=== PATIENT | female | born 1945 | race Caucasian/White ===

== ENCOUNTER 2016-12-01 21:38 | Emergency (ER) | payer MEDICARE ==
[~2016-12-01] VITALS: Ht 175.3 cm; Wt 82.1 kg
[~2016-12-01 21:38] MED LIST: ASPI81TA82 PO; CITA20TA4 PO; MELO7.5 PO; VITA20002 PO; WELL150T PO; XANA0.5T PO; ZOCO40TA PO
[2016-12-01 22:00] VITALS: BP 111/77; PULSE 76; RESP 18; TEMP 98.6; O2SAT 93
[2016-12-01] MEDS ORDERED: BUPR150T3 PO (22:11)
[2016-12-01] MEDS ORDERED: ASPI81CH3 CHEW (22:11)
[2016-12-01] MEDS ORDERED: ALPR1TAB3 PO (22:11)
[2016-12-01] MEDS ORDERED: MELO7.5T4 PO (22:11)
[2016-12-01] MEDS ORDERED: CITA40TA4 PO (22:11)
[2016-12-01] MEDS ORDERED: CHOL1TAB29 PO (22:11)
[2016-12-01] MEDS ORDERED: SIMV40TA PO (22:11)
[2016-12-01] MEDS ORDERED: UNIS25TA2 PO (22:11)
--- NOTE | 2016-12-01 22:52 | PD ---
HPI . Chest cold Chief Complaint: Cold / Flu Symptoms Time Seen by Provider: 22:42 Travel History International Travel<30 days: No Contact w/Intl Traveler<30days: No Traveled to known affect area: No History of Present Illness HPI Patient presents with chest congestion and cough. Onset yesterday. She has had 1 dose of [place] plus cold medicine for her symptoms. Denies fever. She has yellow sputum. PFSH Past Medical History Asthma: No Anxiety: Yes Depression: Yes Cancer: No Cardiovascular Problems: Yes (LEG VEINS STRIPPED YEARS AGO) High Cholesterol: Yes COPD: No Cerebrovascular Accident: Yes (TIA 2014) Diabetes: No Gastrointestinal Disorders: No Respiratory: No Triglycerides - High: Yes Tetanus Vaccination: Unknown Influenza Vaccination: Yes ?: Not Menopausal: Yes Past Surgical History Tonsillectomy: Yes Other Surgery: Yes (Leg veins stripped) Social History Alcohol Use: No Tobacco Use: No Substance Use: No Allergies-Medications (Allergen,Severity, Reaction): Coded Allergies: Penicillin (Verified Allergy, Severe, Swelling, hives, 12/01/16) Reported Meds & Prescriptions Reported Meds & Active Scripts Active Tussionex Pennkinetic Ext 12 HR Liq (Hydrocodone-Chlorpheniramine 12 HR Liq) 10- 8 Mg/5 Ml Susp 5 Ml PO Q12H PRN Guaifenesin ER 12 HR (Guaifenesin) 1,200 Mg Yaniv 1,200 Mg PO BID PRN Prednisone (48) 10 mg tab Dose Pack (Prednisone) 10 Mg Dspk 10 Mg PO DIRECTED Reported Aspirin 81 Low Dose (Aspirin) 81 Mg Chew 81 Mg CHEW DAILY D3 2000 (Cholecalciferol) 2,000 Unit Tab 1 Tab PO DAILY Unisom (Doxylamine Succinate (Sleep)) 25 Mg Tab 25 Mg PO HS PRN Citalopram (Citalopram Hydrobromide) 40 Mg Tab 40 Mg PO DAILY Bupropion HCl ER 24 HR (Bupropion HCl) 150 Mg Tab 150 Mg PO DAILY Alprazolam 1 Mg Tab 1 Mg PO BID Simvastatin 40 Mg Tab 40 Mg PO HS Meloxicam 7.5 Mg Tab 7.5 Mg PO DAILY Review of Systems Except as stated in HPI: all other systems reviewed are Neg General / Constitutional: No: Fever, Chills Cardiovascular: Positive: Chest Pain or Discomfort Respiratory: Positive: Cough, Shortness of Breath Physical Exam Narrative GENERAL: Older woman who does not appear to be in any acute distress. SKIN: Warm and dry. HEAD: Atraumatic. Normocephalic. EYES: Pupils equal and round. ENT: No nasal bleeding or discharge. Mucous membranes pink and moist. NECK: Trachea midline. Neck is supple. No cervical lymphadenopathy. CARDIOVASCULAR: Regular rate and rhythm. Heart sounds are normal. RESPIRATORY: No accessory muscle use. Lungs are clear posteriorly. She has a coarse expiratory sound heard anteriorly. GASTROINTESTINAL: Abdomen soft, non-tender, nondistended. MUSCULOSKELETAL: No obvious deformities. No edema. NEUROLOGICAL: Awake and alert. No obvious cranial nerve deficits. Motor grossly within normal limits. Normal speech. PSYCHIATRIC: Appropriate mood and affect; insight and judgment normal. Data Data Last Documented VS Vital Signs Date Time Temp Pulse Resp B/P Pulse Ox O2 Delivery O2 Flow Rate FiO2 12/01/16 23:07 68 18 96 Room Air 12/01/16 22:00 98.6 111/77 Orders Chest, Pa & Lat (12/01/16 22:46) Guaifen-Dm 200-20 Mg/10 Ml Liq (Robituss (12/01/16 23:00) MDM Medical Decision Making Medical Screen Exam Complete: Yes Emergency Medical Condition: Yes Medical Record Reviewed: Yes (medical history significant for hypertension, hyperlipidemia, bradycardia and anxiety.) Interpretation(s) EKG shows a normal sinus rhythm with no acute ischemic change. EKG is unchanged from previous. Differential Diagnosis Differential diagnosis includes but is not limited to viral respiratory illness , bronchitis, pneumonia, allergies, CHF, asthma/COPD. Narrative Course Patient presents for evaluation and treatment of cough and chest congestion. Chest x-ray to my interpretation is negative for infiltrate. Last Impressions Chest X-Ray 12/01/16 7068 Signed Impressions: Service Date/Time: Thursday, December 01, 2016 23:16 - CONCLUSION: No evidence of acute cardiopulmonary disease. Hyperexpanded but clear lungs. Josué Aden MD Diagnosis Primary Impression: Chest cold Med/Other Pt SpecificInfo: Prescription(s) given Scripts Hydrocodone-Chlorpheniramine 12 HR Liq (Tussionex Pennkinetic Ext 12 HR Liq)10- 8 Mg/5 Ml Susp5 Ml PO Q12H PRN (cough) #60 ML Ref 0 Prov:Marilia Carson MD 12/01/16 Guaifenesin ER 12 HR 1,200 Mg Taber1,200 Mg PO BID PRN (chest congestion) #30 TAB Ref 0 Prov:Marilia Carson MD 12/01/16 Prednisone (48) 10 mg tab Dose Pack 10 Mg Dspk10 Mg PO DIRECTED #1 DSPK Ref 0 Prov:Marilia Carson MD 12/01/16 Disposition: 01 DISCHARGE HOME Condition: Stable Marilia Carson MD Dec 01, 2016 22:52
[2016-12-01] MEDS ORDERED: guaiFENesin/DEXTROMETHORPHAN 200 MG/20 MG/10 ML CUP PO ONE (23:00)
[2016-12-01 23:07] VITALS: PULSE 68; RESP 18; O2SAT 96
[2016-12-01] MEDS ORDERED: GUAI10TA PO (23:32)
[2016-12-01] MEDS ORDERED: PRED10PA2 PO (23:32)
[2016-12-01] MEDS ORDERED: TUSSSUS2 PO (23:32)
--- NOTE | 2016-12-01 23:40 | RADHPO ---
EXAM DATE/TIME: 12/01/2016 23:16 [facility] COMPARISON: CHEST SINGLE AP, June 05, 2015, 16:12. INDICATIONS : Cough. MEDICAL HISTORY : Hypertension. Hypercholesterolemia. Myocardial infarction. TIA, Hyperlipidemia SURGICAL HISTORY : Tonsillectomy. ENCOUNTER: Initial ACUITY: 1 day PAIN SCORE: 0/10 LOCATION: Bilateral chest FINDINGS: No infiltrate, effusion or pneumothorax demonstrated. Lungs are hyperexpanded. Heart size upper limit s of normal. Thoracic aorta is tortuous. Mild S-shaped thoracolumbar scoliosis. There is multifocal degenerative disease with exaggeration of the kyphosis of the thoracic spine. CONCLUSION: No evidence of acute cardiopulmonary disease. Hyperexpanded but clear lungs. Josué Aden MD on December 01, 2016 at 23:37 Board Certified Radiologist. This report was verified electronically.
[2016-12-02] MEDS ORDERED: predniSONE 20 MG TAB PO ONE
--- NOTE | 2016-12-03 10:27 | EKG ---
Date Performed: 12/01/2016 Time Performed: 22:10:22 PTAGE: 71 years EKG: Sinus rhythm Left axis deviation Inferior infarct - age undetermined Abnormal ECG Compared to prior tracing no si gnificant change PREVIOUS TRACING 06/05/2015 17.15 DOCTOR: Bharat Curiel Interpretating Date/Time 12/03/2016 10:25:03
== END 2016-12-02 00:13 | disposition home or self-care (01) ==
LOC: PHEFT 21:38 → PHED 12-02 00:13
DX: J40 Bronchitis, not specified as acute or chronic (principal); R94.31 Abnormal electrocardiogram [ECG] [EKG]; E78.5 Hyperlipidemia, unspecified; Z86.59 Personal history of other mental and behavioral disorders; Z86.79 Personal history of other diseases of the circulatory system; Z86.73 Personal history of transient ischemic attack (TIA), and cerebral infarction without residual deficits
CPT/HCPCS: 71020; 93005; 99283; J7512

== ENCOUNTER 2017-03-24 11:19 | Emergency (ER) | payer MEDICARE ==
[~2017-03-24] VITALS: Ht 170.2 cm; Wt 77.0 kg
[~2017-03-24 11:19] MED LIST changes: +ALPR1TAB3 PO; +ASPI81CH3 CHEW; -ASPI81TA82 PO; +BUPR150T3 PO; +CHOL1TAB29 PO; -CITA20TA4 PO; +CITA40TA4 PO; +GUAI10TA PO; -MELO7.5 PO; +MELO7.5T4 PO; +PRED10PA2 PO; +SIMV40TA PO; +TUSSSUS2 PO; +UNIS25TA2 PO; -VITA20002 PO; -WELL150T PO; -XANA0.5T PO; -ZOCO40TA PO
[2017-03-24 11:22] VITALS: BP 133/66; PULSE 56; RESP 16; TEMP 97.5; O2SAT 99
--- NOTE | 2017-03-24 11:44 | PD ---
HPI Chief Complaint: Dizziness Time Seen by Provider: 11:35 Travel History International Travel<30 days: No Contact w/Intl Traveler<30days: No Traveled to known affect area: No History of Present Illness HPI PATIENT STATES DIZZINESS ONSET TODAY, PT HAS BASELINE DEMENTIA DIAGNOSED AND IS FORGETFUL, BUT DENIES ANY OTHER COMPLAINTS AT THIS TIME (IN PARTICULAR ACUÑA/ PHOTOPHOBIA/CHEST PAIN/ABD PAIN/ N/V/D) PFSH Past Medical History Hx Anticoagulant Therapy: No Asthma: No Anxiety: Yes Depression: Yes Cancer: No Cardiovascular Problems: Yes (LEG VEINS STRIPPED YEARS AGO) High Cholesterol: Yes COPD: No Cerebrovascular Accident: Yes (TIA 2014) Diabetes: No Gastrointestinal Disorders: No Respiratory: No Triglycerides - High: Yes Menopausal: Yes Past Surgical History Tonsillectomy: Yes Other Surgery: Yes (Leg veins stripped) Social History Alcohol Use: No Tobacco Use: No Substance Use: No Allergies-Medications (Allergen,Severity, Reaction): Coded Allergies: Penicillin (Verified Allergy, Severe, Swelling, hives, 03/24/17) Reported Meds & Prescriptions Reported Meds & Active Scripts Active Reported D3 Maximum Strength (Cholecalciferol) 5,000 Unit Cap 2,000 Units PO DAILY Aspirin EC (Aspirin) 325 Mg Tabdr 325 Mg PO DAILY Donepezil 5 Mg Tab 5 Mg PO HS Citalopram (Citalopram Hydrobromide) 40 Mg Tab 40 Mg PO DAILY Bupropion HCl ER 24 HR (Bupropion HCl) 150 Mg Tab 150 Mg PO DAILY Alprazolam 1 Mg Tab 1 Mg PO BID Simvastatin 40 Mg Tab 40 Mg PO HS Meloxicam 7.5 Mg Tab 7.5 Mg PO DAILY Review of Systems Except as stated in HPI: all other systems reviewed are Neg HENT: Positive: Lightheadedness Physical Exam Narrative GENERAL: SKIN: Warm and dry. HEAD: Atraumatic. Normocephalic. EYES: Pupils equal and round. No scleral icterus. No injection or drainage. LATERAL, FATIGUABLE NYSTAGMUS NOTED...NONROTARY ENT: No nasal bleeding or discharge. Mucous membranes pink and moist....BILATERAL CERUMEN IMPACTION NOTED NECK: Trachea midline. No JVD. CARDIOVASCULAR: Regular rate and rhythm. RESPIRATORY: No accessory muscle use. Clear to auscultation. Breath sounds equal bilaterally. GASTROINTESTINAL: Abdomen soft, non-tender, nondistended. Hepatic and splenic margins not palpable. MUSCULOSKELETAL: Extremities without clubbing, cyanosis, or edema. No obvious deformities. NEUROLOGICAL: Awake and alert. No obvious cranial nerve deficits. Motor grossly within normal limits. Five out of 5 muscle strength in the arms and legs. Normal speech. PSYCHIATRIC: Appropriate mood and affect; insight and judgment normal. Data Data Last Documented VS Vital Signs Date Time Temp Pulse Resp B/P Pulse Ox O2 Delivery O2 Flow Rate FiO2 03/24/17 12:40 51 16 138/76 99 Room Air 03/24/17 11:22 97.5 Orders Electrocardiogram (03/24/17 11:47) Complete Blood Count With Diff (03/24/17 11:47) Comprehensive Metabolic Panel (03/24/17 11:47) Ckmb (Isoenzyme) Profile (03/24/17 11:47) Troponin I (03/24/17 11:47) B-Type Natriuretic Peptide (03/24/17 11:47) Lipase (03/24/17 11:47) Ua Includes Microscopic (03/24/17 11:47) Influenzae A/B Antigen (03/24/17 11:47) Chest, Single Ap (03/24/17 11:47) Ct Brain W/O Iv Contrast(Rout) (03/24/17 11:47) Ear Irrigation (03/24/17 11:55) Meclizine (Antivert) (03/24/17 12:30) Labs Laboratory Tests Test 03/24/17 11:55 White Blood Count 6.2 TH/MM3 Red Blood Count 3.95 MIL/MM3 Hemoglobin 12.2 GM/DL Hematocrit 36.4 % Mean Corpuscular Volume 92.1 FL Mean Corpuscular Hemoglobin 30.8 PG Mean Corpuscular Hemoglobin 33.5 % Concent Red Cell Distribution Width 13.1 % Platelet Count 289 TH/MM3 Mean Platelet Volume 8.1 FL Neutrophils (%) (Auto) 72.8 % Lymphocytes (%) (Auto) 16.4 % Monocytes (%) (Auto) 4.8 % Eosinophils (%) (Auto) 5.5 % Basophils (%) (Auto) 0.5 % Neutrophils # (Auto) 4.6 TH/MM3 Lymphocytes # (Auto) 1.0 TH/MM3 Monocytes # (Auto) 0.3 TH/MM3 Eosinophils # (Auto) 0.3 TH/MM3 Basophils # (Auto) 0.0 TH/MM3 CBC Comment DIFF FINAL Differential Comment Sodium Level 143 MEQ/L Potassium Level 4.4 MEQ/L Chloride Level 109 MEQ/L Carbon Dioxide Level 28.1 MEQ/L Anion Gap 6 MEQ/L Blood Urea Nitrogen 7 MG/DL Creatinine 0.81 MG/DL Estimat Glomerular Filtration 69 ML/MIN Rate Random Glucose 98 MG/DL Calcium Level 8.5 MG/DL Total Bilirubin 0.4 MG/DL Aspartate Amino Transf 15 U/L (AST/SGOT) Alanine Aminotransferase 16 U/L (ALT/SGPT) Alkaline Phosphatase 55 U/L Total Creatine Kinase 63 U/L Troponin I LESS THAN 0.02 NG/ML B-Type Natriuretic Peptide 50 PG/ML Total Protein 6.3 GM/DL Albumin 3.4 GM/DL Lipase 207 U/L [facility] Medical Decision Making Medical Screen Exam Complete: Yes Emergency Medical Condition: Yes Medical Record Reviewed: Yes Differential Diagnosis SECONDARY CAUSES OF WEAK AND DIZZY: UA,CBC,CMP,TROPONIN,EKG, CT HEAD, ETC WILL IRRIGATE EARS BILATERALLY Narrative Course SEE ABOVE Diagnosis Primary Impression: Vertigo Additional Impression: Impacted cerumen of both ears Referrals: Meliton Simon MD call for appointment NOTED TO HAVE PERIPHERAL VERTIGO PLEASE FOLLOWUP FOR FURTHER TREATMENT Patient Instructions: Benign Paroxysmal Positional Vertigo (ED), General Instructions Scripts Meclizine 25 Mg Tab25 Mg PO TID PRN (VERTIGO) #28 TAB Ref 0 Prov:Onofre Rogers MD 03/24/17 Disposition: 01 DISCHARGE HOME Condition: Stable Onofre Rogers MD Mar 24, 2017 11:44
[2017-03-24] MEDS ORDERED: DONE5TAB7 PO (11:49)
[2017-03-24] MEDS ORDERED: CHOL1CAP14 PO (11:49)
[2017-03-24] MEDS ORDERED: ASPI325T33 PO (11:49)
[2017-03-24 12:03] LABS: AUTOMATED NEUTROPHIL # 4.6 TH/MM3 (1.8-7.7); BASOPHIL % 0.5 % (0.0-2.0); EOSINOPHIL # 0.3 TH/MM3 (0-0.4); EOSINOPHIL % 5.5 % (0.0-4.0); HEMATOCRIT 36.4 % (35.0-46.0); HEMO FLAGS DIFF FINAL; LYMPH % 16.4 % (9.0-44.0); MEAN CELL VOLUME 92.1 FL (80.0-100.0); MEAN CORPUSCULAR HEMOGLOBIN 30.8 PG (27.0-34.0); MEAN CORPUSCULAR HGB CONC 33.5 % (32.0-36.0); MONO % 4.8 % (0.0-8.0); NEUT % 72.8 % (16.0-70.0); PLATELET COUNT 289 TH/MM3 (150-450); RED BLOOD COUNT 3.95 MIL/MM3 (4.00-5.30); RED CELL DISTRIBUTION WIDTH 13.1 % (11.6-17.2); WHITE BLOOD COUNT 6.2 TH/MM3 (4.0-11.0)
[2017-03-24 12:11] LABS: CHLORIDE 109 MEQ/L (98-107); POTASSIUM 4.4 MEQ/L (3.5-5.1); SODIUM (NA) 143 MEQ/L (136-145)
[2017-03-24 12:15] LABS: ANION GAP 6 MEQ/L (5-15); BICARBONATE 28.1 MEQ/L (21.0-32.0); BLOOD UREA NITROGEN 7 MG/DL (7-18)
[2017-03-24 12:18] LABS: ALT (GPT) 16 U/L (10-53); AST (GOT) 15 U/L (15-37); GLOMERULAR FILTRATION RATE 69 ML/MIN (>89)
[2017-03-24 12:19] LABS: TOTAL BILIRUBIN ADULT 0.4 MG/DL (0.2-1.0)
[2017-03-24 12:21] LABS: ALKALINE PHOSPHATASE 55 U/L (45-117)
[2017-03-24] MEDS ORDERED: MECLIZINE HCL 25 MG TAB PO ONE (12:30)
--- NOTE | 2017-03-24 12:35 | RADHPO ---
EXAM DATE/TIME: 03/24/2017 12:00 [facility] COMPARISON: CHEST SINGLE AP, June 05, 2015, 16:12. INDICATIONS : Cough, dizzy and lightheaded MEDICAL HISTORY : Myocardial infarction. SURGICAL HISTORY : None. ENCOUNTER: Initial ACUITY: 1 day PAIN SCORE: 0/10 LOCATION: Bilateral chest FINDINGS: Single AP view of the chest. The lungs are clear. Cardiomediastinal silhouette within normal limits. No evidence of pleural effusion or pneumothorax. CONCLUSION: No acute cardiopulmonary disease identified. Jeff Blood MD on March 24, 2017 at 12:33 Board Certified Radiologist. This report was verified electronically.
[2017-03-24 12:39] LABS: CREATINE KINASE 63 U/L (26-192)
[2017-03-24 12:40] VITALS: BP 138/76; PULSE 51; RESP 16; O2SAT 99
--- NOTE | 2017-03-24 12:49 | RADHPO ---
EXAM DATE/TIME: 03/24/2017 12:19 [facility] COMPARISON: CT BRAIN W/O CONTRAST, June 05, 2015, 16:57. INDICATIONS : Dizziness and lightheaded this morning. RADIATION DOSE: 58.16 CTDIvol (mGy) MEDICAL HISTORY : Cerebrovascular disease. SURGICAL HISTORY : None. ENCOUNTER: Initial ACUITY: 1 day PAIN SCALE: 0/10 LOCATION: cranial TECHNIQUE: Multiple contiguous axial images were obtained of the head. Using automated exposure control and adj ustment of the mA and/or kV according to patient size, radiation dose was kept as low as reasonably a chievable to obtain optimal diagnostic quality images. FINDINGS: CEREBRUM: The ventricles are normal for age. No evidence of midline shift, mass lesion, hemorrhage or acute in farction. No extra-axial fluid collections are seen. POSTERIOR FOSSA: The cerebellum and brainstem are intact. The 4th ventricle is midline. The cerebellopontine angle i s unremarkable. EXTRACRANIAL: The visualized portion of the orbits is intact. SKULL: The calvaria is intact. No evidence of skull fracture. CONCLUSION: No acute intracranial findings. Jeff Blood MD on March 24, 2017 at 12:45 Board Certified Radiologist. This report was verified electronically.
[2017-03-24] MEDS ORDERED: MECL-62 PO (13:13)
[2017-03-24 13:30] VITALS: BP 134/77; PULSE 55; RESP 16; O2SAT 97
--- NOTE | 2017-03-25 11:20 | EKG ---
Date Performed: 03/24/2017 Time Performed: 11:30:14 PTAGE: 72 years EKG: Sinus bradycardia with PAC(s) Left axis deviation rSr'(V1) - probable normal variant Inferi or infarct - age undetermined Possible anterior infarct - age undetermined Lateral T wave changes are nonspecific Low QRS voltages in precordial leads Abnormal ECG Compared to prior tracing no significa nt change PREVIOUS TRACING : 12/01/2016 22.10 DOCTOR: Tirso Martins Interpretating Date/Time 03/25/2017 11:17:57
== END 2017-03-24 13:54 | disposition home or self-care (01) ==
LOC: PHED 11:19
DX: H81.399 Other peripheral vertigo, unspecified ear (principal); H61.23 Impacted cerumen, bilateral; R94.31 Abnormal electrocardiogram [ECG] [EKG]; F03.90 Unspecified dementia, unspecified severity, without behavioral disturbance, psychotic disturbance, mood disturbance, and anxiety; E78.1 Pure hyperglyceridemia; E78.00 Pure hypercholesterolemia, unspecified; Z86.79 Personal history of other diseases of the circulatory system; Z86.59 Personal history of other mental and behavioral disorders
CPT/HCPCS: 70450; 71010; 80053; 82550; 83690; 83880; 84484; 85025; 87804; 93005; 99285

== ENCOUNTER → 2017-10-04 | Outpatient (CLI) | payer MEDICARE ==
[~2017-10-04] MED LIST changes: +ASPI-183 PO; +ASPI325T33 PO; -ASPI81CH3 CHEW; +ATOR40TA16 PO; -CHOL1TAB29 PO; +D 50CAP2 PO; +DONE5TAB7 PO; -GUAI10TA PO; +HYDR-3516 PO; +HYDR-3583 PO; +MECL-62 PO; +MELO7.5T27 PO; -MELO7.5T4 PO; +NITR100C4 PO; +ONDA8TAB7 PO; -PRED10PA2 PO; -TUSSSUS2 PO; -UNIS25TA2 PO; +UNIS25TA3 PO; +WALKER/ADULT/FO1 MIS; +XARE10TA PO
== END ==
LOC: CPRE 08:58
PROVIDERS: ATTEND Orthopaedic Surgery Orthopaedic Trauma
DX: Z01.810 Encounter for preprocedural cardiovascular examination (principal); Z01.811 Encounter for preprocedural respiratory examination; Z01.812 Encounter for preprocedural laboratory examination; Z01.818 Encounter for other preprocedural examination; Z96.60 Presence of unspecified orthopedic joint implant; Z79.01 Long term (current) use of anticoagulants; Z13.9 Encounter for screening, unspecified; M79.609 Pain in unspecified limb

== ENCOUNTER 2017-10-08 06:00 | Inpatient (IN) | payer MEDICARE ==
[~2017-10-08] VITALS: Ht 167.6 cm; Wt 80.3 kg
[~2017-10-08 06:00] MED LIST changes: -ASPI-183 PO; -HYDR-3583 PO; -MELO7.5T27 PO; -SIMV40TA PO; -WALKER/ADULT/FO1 MIS; -XARE10TA PO
[2017-10-08] MEDS ORDERED: SODIUM CHLORID 0.9% 500 ML IV PRN (06:30)
[2017-10-08] MEDS ORDERED: CHLORHEXIDINE GLUCONATE 2 % 1 PACK (2 CLOTHS) TOPICAL PRN (06:30)
[2017-10-08] MEDS ORDERED: POVIDONE IODINE 5% (ANTISEPSIS KIT) 4 APPLICATIONS EACH NARE PRN (06:30)
[2017-10-08] MEDS ORDERED: LACTATED RINGER'S 1000 ML IV PRN (06:30)
[2017-10-08] MEDS ORDERED: METOPROLOL TARTRATE 25 MG TAB PO PRN (06:30)
[2017-10-08] MEDS ORDERED: CHLORHEXIDINE GLUCONATE 4% SOLN 120 ML BTL TOPICAL SCH (06:30)
[2017-10-08] MEDS ORDERED: ASPI-183 PO (07:54)
[2017-10-08] MEDS ORDERED: WALKER/ADULT/FO1 MIS (07:54)
[2017-10-08] MEDS ORDERED: HYDR-3583 PO (07:54)
[2017-10-08] MEDS ORDERED: XARE10TA PO (07:54)
[2017-10-08 08:38] LABS: AUTOMATED NEUTROPHIL # 5.4 TH/MM3 (1.8-7.7); BASOPHIL % 0.5 % (0.0-2.0); EOSINOPHIL # 0.4 TH/MM3 (0-0.4); EOSINOPHIL % 5.3 % (0.0-4.0); HEMATOCRIT 36.2 % (35.0-46.0); HEMO FLAGS DIFF FINAL; LYMPH % 17.4 % (9.0-44.0); LYMPHOCYTE # 1.4 TH/MM3 (1.0-4.8); MEAN CELL VOLUME 94.6 FL (80.0-100.0); MEAN CORPUSCULAR HEMOGLOBIN 32.1 PG (27.0-34.0); MEAN CORPUSCULAR HGB CONC 33.9 % (32.0-36.0); MONO % 8.2 % (0.0-8.0); NEUT % 68.6 % (16.0-70.0); PLATELET COUNT 274 TH/MM3 (150-450); RED BLOOD COUNT 3.83 MIL/MM3 (4.00-5.30); RED CELL DISTRIBUTION WIDTH 13.2 % (11.6-17.2); WHITE BLOOD COUNT 7.9 TH/MM3 (4.0-11.0)
[2017-10-08] MEDS ORDERED: ACETAMINOPHEN 1000 MG/100 ML 100 ML IV ONE (09:19)
[2017-10-08] MEDS: VANCOMYCIN 1000 MG/NS 250 ML (for <70 kg) IV SCH ×6 (09:23→11:16)
[2017-10-08] MEDS ORDERED: ceFAZolin 2 GM PREMIX 50 ML ONE (09:25)
[2017-10-08] MEDS ORDERED: SODIUM CHLORIDE 0.9% IV SCH (09:30)
[2017-10-08] MEDS ORDERED: EXPAREL PERI-ARTICULAR INJECTION (TOTAL VOL. 60 ML) P-ARTICULR SCH ×2 (09:30)
[2017-10-08] MEDS ORDERED: TRANEXAMIC ACID IV SCH (09:30)
[2017-10-08] MEDS ORDERED: GENTAMICIN SULFATE 80 MG/2 ML VIAL ONE (09:34)
[2017-10-08] MEDS ORDERED: BUPIVACAINE LIPOSO PF 1.3% INJ 20 ML, BUPIVACAINE PF 0.25% INJ 20 ML in SODIUM CHLORIDE... P-ARTICULR SCH (09:45)
[2017-10-08] MEDS: DEXAMETHASONE SOD PHOS 20 MG/5 ML VIAL IV SCH ×2 (10:40→11:15)
[2017-10-08] MEDS ORDERED: SUGAMMADEX SODIUM 200 MG/2 ML VIAL IV PUSH ONE ×2 (12:25)
--- NOTE | 2017-10-08 12:41 | PD.OP ---
cc: Dawson Galaviz MD Operative Report Date of Surgery: Oct 08, 2017 Preoperative Diagnosis: Severe left hip osteoarthritis Postoperative Diagnosis: Procedure: Left total hip arthroplasty via anterior approach Surgeon: Dawson Galaviz [employer] Sales Agent(s): GUZMAN Melo PA-C The surgical procedure was assisted by my physician tourist information assistant. My P.A. presence was necessary throughout this case for the manipulation and positioning of the surgical extremity. My P.A. was assisting me throughout the duration of this procedure. The skill set of a physician tourist information assistant was medically necessary to complete this procedure. During the surgical case the ophthalmic surgical assistant was working at the back table and the physician tourist information assistant was directly assisting me. Operation and Findings: PLAN OF ACTIVITY Weight bear as tolerated. DRAINS: 7-mm KISHAN drain. IMPLANTS USED DePuy Corail size [10] collared stem with a size [52] [place] Gription cup, [52 /36] Altrx poly liner, and a [36 +1] ceramic Biolox ceramic head. DETAILS OF PROCEDURE: This patient has a long history of hip pain. Patient was found to have severe osteoarthritis. The patient had radiographic evidence of joint space narrowing with [id number] arthritis and osteophytes around the acetabulum as well as the femoral head. There was also some cystic changes. The patient failed conservative treatment with pain medications, anti-inflammatories, physical therapy, assistive devices including a cane, as well as therapeutic injection of the hip. Patient's hip arthritis was limiting his ability to ambulate and perform activities of daily living. The patient wished to proceed with surgery and informed consent was obtained. Operative site was marked. I discussed both posterior approach and anterior approach with the patient and decision was made for anterior approach. Patient was brought to OR and placed on OR table. IV sedation and general anesthesia was administered by anesthesiologist. Patient positioned on a Alecia table and was given IV antibiotics. Time-out procedure was performed. The hip and thigh were prepped with alcohol followed by Hibiclens. The thigh was draped in the usual sterile fashion. Clean Air Suite was used for this procedure. The procedure began with a 5-inch incision over the anterolateral thigh. Subcutaneous tissue was dissected with Bovie. The fascia over the tensa fasciae latae was incised. Care was taken to avoid injury to the lateral femoral cutaneous nerve. The tensor muscle was retracted laterally. Sartorius was retracted medially. Retractors were now placed. The reflected head of the rectus is now elevated. A capsulotomy was performed over the anterior head capsule. Sutures were placed to help retract the capsule. At this point the femoral head and neck were identified. With soft tissue protected, oscillating saw was used to make a cut through the femoral neck, the femoral head was now removed. At this point attention was turned to preparation of the acetabulum. The labrum was excised. The acetabulum was sequentially reamed up to size [52]. A [place] cup was now placed. Fluoroscopy was used to aid in identification of appropriate version. Cup was fully impacted and found to have excellent fit. Hole eliminator was now placed. The liner was now impacted into the cup. At this point the hip was externally rotated. A hook was placed around the proximal femur. The capsule was released off the lateral and medial femur. The hip was now extended and adducted. Retractors were placed around the proximal femur to allow for exposure. A box osteotome was used to remove the lateral cortex of the femoral neck. A broach was used to help lateralize the prosthesis. Canal finder was used to create a path down the canal. Next, the canal was sequentially broached up to size [10]. This was found to be an excellent fit. Calcar planer was placed. A standard head was placed, and the hip was reduced. The hip was found to have excellent stability with good range of motion. The leg lengths were measured under fluoroscopy and found to be equal compared to preoperatively. Trial broach was removed. The Corail stem was opened. Stem was fully impacted into the proximal femur in appropriate version. The femoral head was placed. The hip was again reduced. Fluoroscopy confirmed excellent alignment of prosthesis. The wound was thoroughly irrigated and capsule was closed with #1 Vicryl. The fascia over the tensor fasciae muscle was closed with #1 Vicryl, subcutaneous tissue was closed with 3-0 Vicryl and the skin was closed with annie and Dermabond skin closure. The capsule layers, muscle, and subcutaneous tissue were injected with a mixture of saline and bupivicaine. Dressings were applied. The patient was transferred to Recovery Room in stable condition. Dawson Galaviz MD Oct 08, 2017 12:41
[2017-10-08] MEDS ORDERED: ONDANSETRON HCL 4 MG/2 ML VIAL IVP PRN (12:45)
[2017-10-08] MEDS ORDERED: MECLIZINE HCL 25 MG TAB PO PRN (12:45)
[2017-10-08] MEDS ORDERED: NALOXONE HCL 0.4 MG/ML AMP IV PUSH PRN (12:45)
[2017-10-08] MEDS ORDERED: Post-op Orders (for Pharmacy) XX ONE (12:45)
[2017-10-08] MEDS ORDERED: MORPHINE SULFATE 4 MG/ML INJ IV PUSH PRN (12:45)
[2017-10-08] MEDS ORDERED: DO NOT ADM ANY ANTICOAGULANT DRUGS PRN (12:54)
[2017-10-08] MEDS ORDERED: *morphine SULFATE 8 MG/ML PERIprocedure ONLY ONE ×2 (13:21→13:38)
[2017-10-08] MEDS: LACTATED RINGER'S 1000 ML INJ 1,000 ML IV SCH (13:40)
[2017-10-08] MEDS ORDERED: *HYDROmorphone PF 1 MG VIAL PERIprocedural Use ONLY ONE (14:10)
--- NOTE | 2017-10-08 14:29 | RADRPT ---
EXAM DATE/TIME: 10/08/2017 13:43 [facility] COMPARISON: No previous studies available for comparison. INDICATIONS : Post op left hip surgery. MEDICAL HISTORY : None. SURGICAL HISTORY : None. ENCOUNTER: Initial ACUITY: 1 day PAIN SCORE: 8/10 LOCATION: Left hip and pelvis FINDINGS: 2 views of the pelvis and left hip reveal a total hip prosthesis on the left. This is in good positio n. No fracture or dislocation. Surgical drain noted. CONCLUSION: Left hip prosthesis in good position. Elia Wilkerson Jr., MD on October 08, 2017 at 14:26 Board Certified Radiologist. This report was verified electronically.
[2017-10-08] MEDS ORDERED: ONDANSETRON ODT 4 MG TAB PO PRN (14:30)
--- NOTE | 2017-10-08 14:34 | RADRPT ---
EXAM DATE/TIME: 10/08/2017 11:56 [facility] COMPARISON: No previous studies available for comparison. INDICATIONS : Left total hip replacement. MEDICAL HISTORY : Myocardial infarction. SURGICAL HISTORY : None. ENCOUNTER: Initial ACUITY: 1 day PAIN SCORE: Non-responsive. LOCATION: Left hip FINDINGS: A two view examination of the left hip was performed. There is a left-sided total hip orthoplasty in good position.. CONCLUSION: Total left hip arthroplasty without fracture. Herminio Jonas MD on October 08, 2017 at 14:32 Board Certified Radiologist. This report was verified electronically.
[2017-10-08] MEDS: KETOROLAC TROMETHAMINE 30 MG/ML (IVP) VIAL IV PUSH SCH (15:43)
[2017-10-08 16:10] VITALS: BP 97/58; PULSE 70; RESP 18; TEMP 96; O2SAT 94
[2017-10-08] MEDS: TRANEXAMIC ACID INJ 1,000 MG in SODIUM CHLORIDE 0.9% INJ 100 ML IV SCH ×2 (16:39→16:42)
[2017-10-08] MEDS: ACETAMINOPHEN/HYDROcodone 325 MG/7.5 MG TAB PO PRN (18:12)
[2017-10-08] MEDS: ceFAZolin 2 GM PREMIX 50 ML IV SCH ×2 (18:14→22:48)
[2017-10-08 20:00] VITALS: BP 99/52; PULSE 75; RESP 20; TEMP 97.9; O2SAT 97
[2017-10-08] MEDS: DONEPEZIL HCL 5 MG TAB PO SCH (20:51)
[2017-10-08] MEDS: ALPRAZolam 1 MG TAB PO SCH (20:51)
[2017-10-08] MEDS: ATORVASTATIN 40 MG TAB PO SCH (20:51)
[2017-10-08] MEDS: VANCOMYCIN INJ 1,000 MG in SODIUM CHLOR 0.9% 250 ML INJ 250 ML IV SCH (22:49)
[2017-10-09] VITALS (8 sets, daily range): BP systolic 90–127; BP diastolic 49–91; PULSE 59–93; RESP 17–20; TEMP 96–98.8; O2SAT 95–98
[2017-10-09] MEDS: LACTATED RINGER'S 1000 ML INJ 1,000 ML IV SCH (02:30)
[2017-10-09] MEDS: KETOROLAC TROMETHAMINE 30 MG/ML (IVP) VIAL IV PUSH SCH ×3 (03:00→21:56)
[2017-10-09] MEDS: ceFAZolin 2 GM PREMIX 50 ML IV SCH (05:00)
[2017-10-09] MEDS: ACETAMINOPHEN/HYDROcodone 325 MG/7.5 MG TAB PO PRN ×2 (05:15→10:10)
[2017-10-09 06:50] LABS: HEMATOCRIT 29.4 % (35.0-46.0); REVIEW FLAG FINAL
--- NOTE | 2017-10-09 07:20 | PD.ORT.PN ---
Subjective Subjective Remarks Resting comfortably. Continuing to progress well status post left total hip arthroplasty Objective Vitals Vital Signs Date Time Temp Pulse Resp B/P (MAP) Pulse Ox O2 Delivery O2 Flow Rate FiO2 10/09/17 04:00 97.3 69 20 90/59 (69) 95 10/09/17 00:00 98.8 67 20 91/51 (64) 95 10/08/17 20:00 97.9 75 20 99/52 (68) 97 10/08/17 17:22 Nasal Cannula 2.00 10/08/17 16:10 96.0 70 18 97/58 (71) 94 10/08/17 15:15 97.9 70 18 97/55 (69) 99 Nasal Cannula 2 10/08/17 15:00 68 18 97/52 (67) 99 Nasal Cannula 2 10/08/17 14:45 72 18 96/54 (68) 99 Nasal Cannula 2 10/08/17 14:30 68 18 95/52 (66) 99 Nasal Cannula 2 10/08/17 14:15 69 18 95/54 (68) 100 Nasal Cannula 2 10/08/17 14:00 68 18 95/54 (68) 100 Nasal Cannula 2 10/08/17 13:45 70 18 98/56 (70) 100 Nasal Cannula 2 10/08/17 13:30 76 16 108/58 (75) 100 Nasal Cannula 2 10/08/17 13:15 87 16 114/56 (75) 100 Nasal Cannula 2 10/08/17 12:57 96.9 88 16 120/59 (79) 99 Nasal Cannula 2 10/08/17 07:47 98.1 59 20 89/65 (73) 99 I/O 10/08/17 10/08/17 10/08/17 10/09/17 10/09/17 10/09/17 07:00 15:00 23:00 07:00 15:00 23:00 Intake Total 1450 ml 720 ml Output Total 3300 ml 120 ml 450 ml Balance -1850 ml -120 ml 270 ml Intake Oral 720 ml IV Total 1450 ml Output Urine Total 450 ml Drainage Total 120 ml Estimated Blood Loss 300 ml Other 3000 ml # Voids 2 Result Diagram: 10/09/17 0613 Imaging Last 24 hours Impressions Hip and Pelvis X-Ray 10/08/17 1233 Signed Impressions: Service Date/Time: Sunday, October 08, 2017 13:43 - CONCLUSION: Left hip prosthesis in good position. Elia Wilkerson Jr., MD Objective Remarks Left lower extremity: Clean dry dressings intact. Drain in place. Mild swelling. Minimal tenderness with gentle passive range of motion of hip. Distally intact sensation with good capillary refills Assessment & Plan Assessment and Plan Left total hip arthroplasty POD 1 anterior approach Weightbearing as tolerated physical therapy twice a day DC drain today and continue dry dressings over incision Incentive spirometry SUMAN fuller and SCDs Plan for discharge tomorrow Follow-up appointment with Dr. Galaviz or PA in 2 weeks Meliton Lawrence Jr. Oct 09, 2017 07:20
[2017-10-09] MEDS: CITALOPRAM HYDROBROMIDE 40 MG TAB PO SCH (08:45)
[2017-10-09] MEDS: ALPRAZolam 1 MG TAB PO SCH ×2 (08:45→20:22)
[2017-10-09] MEDS: ENOXAPARIN SODIUM 30 MG/0.3 ML SYRINGE SQ SCH (08:45)
[2017-10-09] MEDS: buPROPion HCL 150 MG SUSTAINED RELEASE TAB PO SCH (08:45)
[2017-10-09] MEDS: VANCOMYCIN INJ 1,000 MG in SODIUM CHLOR 0.9% 250 ML INJ 250 ML IV SCH (10:41)
[2017-10-09] MEDS: ACETAMINOPHEN/HYDROcodone 325 MG/10 MG TAB PO PRN ×2 (15:58→20:22)
[2017-10-09] MEDS: DONEPEZIL HCL 5 MG TAB PO SCH (20:21)
[2017-10-09] MEDS: DOCUSATE SODIUM 100 MG CAP PO SCH (20:21)
[2017-10-09] MEDS: ATORVASTATIN 40 MG TAB PO SCH (20:22)
[2017-10-09] MEDS ORDERED: MORPHINE SULFATE 2 MG/ML INJ IV PUSH PRN (21:30)
[2017-10-09] MEDS: diphenhydrAMINE HCL 25 MG CAP PO PRN (21:35)
[2017-10-10] MEDS: LACTATED RINGER'S 1000 ML INJ 1,000 ML IV SCH (01:20)
[2017-10-10] MEDS: ACETAMINOPHEN/HYDROcodone 325 MG/10 MG TAB PO PRN ×2 (03:54→08:51)
[2017-10-10] MEDS: diphenhydrAMINE HCL 25 MG CAP PO PRN (03:54)
[2017-10-10 07:32] VITALS: BP 103/63; PULSE 57; RESP 18; TEMP 97.3; O2SAT 92
--- NOTE | 2017-10-10 07:50 | PD.ORT.PN ---
Subjective Subjective Remarks Resting comfortably. Continuing to progress well status post left total hip arthroplasty Objective Vitals Vital Signs Date Time Temp Pulse Resp B/P (MAP) Pulse Ox O2 Delivery O2 Flow Rate FiO2 10/10/17 07:32 97.3 57 18 103/63 (76) 92 10/09/17 20:00 97.5 90 20 109/60 (76) 96 10/09/17 18:00 96 Nasal Cannula 2.00 10/09/17 16:51 20 10/09/17 16:51 20 10/09/17 16:00 96.7 59 17 100/58 (72) 96 10/09/17 12:00 98 Nasal Cannula 2.00 10/09/17 11:41 96.0 67 19 95/67 (76) 98 10/09/17 11:10 20 10/09/17 08:00 96.4 93 17 127/91 (103) 98 I/O 10/09/17 10/09/17 10/09/17 10/10/17 10/10/17 10/10/17 07:00 15:00 23:00 07:00 15:00 23:00 Intake Total 720 ml 900 ml 720 ml Output Total 490 ml 90 ml Balance 230 ml 810 ml 720 ml Intake Oral 720 ml 900 ml 720 ml Output Urine Total 450 ml Drainage Total 40 ml 90 ml # Voids 2 3 2 # Bowel Movements 1 Result Diagram: 10/09/17 0613 Imaging Last 24 hours Impressions Hip and Pelvis X-Ray 10/08/17 1233 Signed Impressions: Service Date/Time: Sunday, October 08, 2017 13:43 - CONCLUSION: Left hip prosthesis in good position. Elia Wilkerson Jr., MD Objective Remarks Left lower extremity: Clean dry dressings intact. Mild swelling. Minimal tenderness with gentle passive range of motion of hip. Distally intact sensation with good capillary refills Assessment & Plan Assessment and Plan Left total hip arthroplasty POD 2 anterior approach Weightbearing as tolerated physical therapy twice a day DC drain today and continue dry dressings over incision and leave in place for 1 week. May continue to do daily dressing changes over drain site Incentive spirometry Lovenox then convert to Xarelto after discharge SUMAN fuller and SCDs Plan for discharge to rehabilitation when bed available Follow-up appointment with Dr. Galaviz or PA in 2 weeks Meliton Lawrence Jr. Oct 10, 2017 07:50
[2017-10-10] MEDS: DOCUSATE SODIUM 100 MG CAP PO SCH (08:49)
[2017-10-10] MEDS: buPROPion HCL 150 MG SUSTAINED RELEASE TAB PO SCH (08:49)
[2017-10-10] MEDS: CITALOPRAM HYDROBROMIDE 40 MG TAB PO SCH (08:49)
[2017-10-10] MEDS: ENOXAPARIN SODIUM 30 MG/0.3 ML SYRINGE SQ SCH (08:49)
[2017-10-10] MEDS: ALPRAZolam 1 MG TAB PO SCH (08:49)
[2017-10-10 11:05] VITALS: BP 90/50
[2017-10-10 11:34] VITALS: PULSE 65; RESP 18; TEMP 95.9; O2SAT 93
[2017-10-10] MEDS ORDERED: ALPR1TAB3 PO (12:35)
== END 2017-10-10 16:26 | DRG 470 ==
LOC: HSDI 06:00 → N06A 15:52
PROVIDERS: ADMIT Orthopaedic Surgery Orthopaedic Trauma; ATTEND Orthopaedic Surgery Orthopaedic Trauma
PROC: 0SRB04A Replacement of Left Hip Joint with Ceramic on Polyethylene Synthetic Substitute, Uncemented, Open Approach (ICD-10-PCS; principal; 2017-10-08 10:16)
DX: M16.12 Unilateral primary osteoarthritis, left hip (principal)
CPT/HCPCS: 73501; 73502; 76000; 85014; 85018; 85025; 86850; 86900; 86901; C1776; C9290; J0131; J0690; J1100; J1170; J1580; J1650; J1885; J2270; J3370; J7050; J7120

== ENCOUNTER 2017-11-19 11:33 | Inpatient (IN) | payer MEDICARE ==
[~2017-11-19] VITALS: Ht 167.6 cm; Wt 69.1 kg
[~2017-11-19 11:33] MED LIST changes: +ASPI-183 PO; -ASPI325T33 PO; -HYDR-3516 PO; +HYDR-3583 PO; -NITR100C4 PO; +WALKER/ADULT/FO1 MIS; +XARE10TA PO
[2017-11-19 11:37] VITALS: BP 121/73; PULSE 68; RESP 17; TEMP 97.9; O2SAT 97
--- NOTE | 2017-11-19 12:36 | RADRPT ---
EXAM DATE/TIME: 11/19/2017 11:59 [facility] COMPARISON: CT BRAIN W/O CONTRAST, March 24, 2017, 12:19. INDICATIONS : Dizziness, occipital pain since hip replacement 5 weeks ago RADIATION DOSE: 37.48 CTDIvol (mGy) MEDICAL HISTORY : Dementia. Cardiovascular disease SURGICAL HISTORY : Left hip replacement ENCOUNTER: Initial ACUITY: 1 month PAIN SCALE: 5/10 LOCATION: occipital TECHNIQUE: Multiple contiguous axial images were obtained of the head. Using automated exposure control and adj ustment of the mA and/or kV according to patient size, radiation dose was kept as low as reasonably a chievable to obtain optimal diagnostic quality images. DICOM format image data is available electro nically for review and comparison. FINDINGS: CEREBRUM: There is mild generalized atrophy. Ventricles are normal in size. There is periventricular white delmy er low density unchanged from the prior study. No evidence of midline shift, mass lesion, hemorrhage or acute infarction. No extra-axial fluid collections are seen. POSTERIOR FOSSA: The cerebellum and brainstem demonstrate no acute finding. There are stable mineralization along the left aspect of the foramen magnum. The 4th ventricle is midline. The cerebellopontine angle is unre markable. EXTRACRANIAL: Visualized sinuses are clear. SKULL: The calvaria is intact. No evidence of skull fracture. CONCLUSION: 1. Stable noncontrast head CT. No acute intracranial abnormality is identified. 2. Stable chronic changes include mild generalized atrophy and chronic periventricular white matter c rosalba. Josué Smith MD on November 19, 2017 at 12:31 Board Certified Radiologist. This report was verified electronically.
[2017-11-19 13:12] LABS: BILIRUBIN, URINE NEG (NEG); BLOOD, URINE SMALL (NEG); GLUCOSE,URINE NEG (NEG); KETONE, URINE NEG (NEG); MUCUS URINE MANY /lpf (OCC); NITRITE,URINE NEG (NEG); PH, URINE 5.5 (5.0-8.5); SQUAMOUS EPITHELIAL CELL URINE 1 /hpf (0-5); URINE COLOR YELLOW (YELLW/STRAW); URINE LEUKOCYTE ESTERASE SMALL (NEG)
[2017-11-19 13:25] LABS: AUTOMATED NEUTROPHIL # 3.6 TH/MM3 (1.8-7.7); BASOPHIL % 0.3 % (0.0-2.0); EOSINOPHIL # 1.7 TH/MM3 (0-0.4); EOSINOPHIL % 24.6 % (0.0-4.0); HEMATOCRIT 35.5 % (35.0-46.0); HEMOGLOBIN 12.1 GM/DL (11.6-15.3); LYMPH % 16.2 % (9.0-44.0); LYMPHOCYTE # 1.1 TH/MM3 (1.0-4.8); MEAN CELL VOLUME 93.7 FL (80.0-100.0); MEAN CORPUSCULAR HEMOGLOBIN 32.1 PG (27.0-34.0); MEAN CORPUSCULAR HGB CONC 34.2 % (32.0-36.0); MEAN PLATELET VOLUME 7.8 FL (7.0-11.0); MONO % 7.7 % (0.0-8.0); MONOCYTE # 0.5 TH/MM3 (0-0.9); NEUT % 51.2 % (16.0-70.0); PLATELET COUNT 286 TH/MM3 (150-450); RED BLOOD COUNT 3.78 MIL/MM3 (4.00-5.30); RED CELL DISTRIBUTION WIDTH 13.4 % (11.6-17.2); WHITE BLOOD COUNT 7.1 TH/MM3 (4.0-11.0)
[2017-11-19 13:36] LABS: INTERNATIONAL NORMALIZED RATIO 1.2 RATIO; PROTHROMBIN TIME - PATIENT 12.1 SEC (9.8-11.6)
[2017-11-19 13:45] LABS: ALBUMIN 3.3 GM/DL (3.4-5.0); ALT (GPT) 324 U/L (10-53); AST (GOT) 409 U/L (15-37); BICARBONATE 27.6 MEQ/L (21.0-32.0); BLOOD UREA NITROGEN 8 MG/DL (7-18); CALCIUM 8.3 MG/DL (8.5-10.1); CHLORIDE 107 MEQ/L (98-107); CREATININE 0.82 MG/DL (0.50-1.00); GLOMERULAR FILTRATION RATE 68 ML/MIN (>89); GLUCOSE,RANDOM 92 MG/DL (74-106); MAGNESIUM 2.2 MG/DL (1.5-2.5); SODIUM (NA) 141 MEQ/L (136-145)
[2017-11-19 13:49] LABS: ALKALINE PHOSPHATASE 455 U/L (45-117); TOTAL BILIRUBIN ADULT 1.3 MG/DL (0.2-1.0); TOTAL PROTEIN 6.9 GM/DL (6.4-8.2); TROPONIN I LESS THAN 0.02 NG/ML (0.02-0.05)
[2017-11-19 15:45] VITALS: BP 130/68; PULSE 62; RESP 16; TEMP 97.8; O2SAT 98
--- NOTE | 2017-11-19 15:58 | PD ---
HPI Chief Complaint: Dizziness Time Seen by Provider: 15:31 Travel History International Travel<30 days: No Contact w/Intl Traveler<30days: No Traveled to known affect area: No History of Present Illness HPI 72-year-old female came to the emergency room sent by her primary care to get a CAT scan for her headache and dizziness that has been going on for past 2 weeks. Patient says this all started after she had her left hip replaced. No history of syncopal episode or fall. Patient has been taking meclizine which is not helping. There was workup initiated while she was in triage and in the waiting room. The results of those are mostly returned. Patient is awake and answering questions appropriately. She does not appear to be in any significant discomfort. Vital signs are stable. [facility] Past Medical History Narrative Medical List of her past medical, surgical, social and family history reviewed from the nursing note. Hx Anticoagulant Therapy: No Asthma: No Anxiety: Yes Depression: Yes Cancer: No Cardiovascular Problems: Yes (LEG VEINS STRIPPED YEARS AGO) High Cholesterol: Yes COPD: No Cerebrovascular Accident: Yes (TIA 2014) Dementia: Yes Diabetes: No Diminished Hearing: No Endocrine: No Gastrointestinal Disorders: No Genitourinary: No Hepatitis: No Hiatal Hernia: No Immune Disorder: No Musculoskeletal: Yes (OA, LEFT HIP PAIN) Neurologic: Yes (TIA, MEMORY ISSUE AT TIME) Psychiatric: Yes (ANXIETY, DEPRESSION ) Reproductive: No Respiratory: No Thyroid Disease: No Triglycerides - High: Yes Tetanus Vaccination: > 5 Years Influenza Vaccination: Yes Menopausal: Yes : 4 Para: 4 Past Surgical History Abdominal Surgery: No AICD: No Body Medical Devices: NONE Cardiac Surgery: No Ear Surgery: No Endocrine Surgery: No Eye Surgery: No Genitourinary Surgery: No Gynecologic Surgery: No Joint Replacement: No Oral Surgery: No Pacemaker: No Thoracic Surgery: No Tonsillectomy: Yes Other Surgery: Yes (Leg veins stripped) Social History Alcohol Use: No Tobacco Use: No Substance Use: No Allergies-Medications (Allergen,Severity, Reaction): Coded Allergies: penicillin G (Verified Allergy, Severe, Swelling, hives, 11/19/17) Comments No known drug allergies. Reported Meds & Prescriptions Reported Meds & Active Scripts Active Xarelto (Rivaroxaban) 10 Mg Tab 10 Mg PO DAILY 14 Days Aspirin 325 Mg Tab 325 Mg PO DAILY Hydrocodone-Acetaminophen 10-325 mg Tab 1 Tab PO Q4H PRN Meclizine (Meclizine HCl) 25 Mg Tab 25 Mg PO TID PRN Reported Unisom Sleep Aid (Doxylamine Succinate) 25 Mg Tablet 1 Tab PO HS PRN Atorvastatin (Atorvastatin Calcium) 40 Mg Tab 40 Mg PO HS D3 Maximum Strength (Cholecalciferol) 5,000 Unit Cap 2,000 Units PO DAILY Donepezil 5 Mg Tab 5 Mg PO HS Citalopram (Citalopram Hydrobromide) 40 Mg Tab 40 Mg PO DAILY Bupropion HCl ER 24 HR (Bupropion HCl) 150 Mg Tab 150 Mg PO DAILY Alprazolam 1 Mg Tab 1 Mg PO BID Narrative Medication List of her home medications reviewed from the nursing note. Review of Systems Except as stated in HPI: all other systems reviewed are Neg Neurologic: Positive: Dizziness Physical Exam Narrative GENERAL: Awake, alert, no obvious distress SKIN: Focused skin assessment warm/dry. HEAD: Atraumatic. Normocephalic. EYES: Pupils equal and round. No scleral icterus. No injection or drainage. ENT: No nasal bleeding or discharge. Mucous membranes pink and moist. NECK: Trachea midline. No JVD. CARDIOVASCULAR: Regular rate and rhythm. No murmur appreciated. RESPIRATORY: No accessory muscle use. Clear to auscultation. Breath sounds equal bilaterally. GASTROINTESTINAL: Abdomen soft, non-tender, nondistended. Hepatic and splenic margins not palpable. MUSCULOSKELETAL: No obvious deformities. No clubbing. No cyanosis. No edema. NEUROLOGICAL: Awake and alert. No obvious cranial nerve deficits. Motor grossly within normal limits. Normal speech. PSYCHIATRIC: Appropriate mood and affect; insight and judgment normal. Data Data Last Documented VS Vital Signs Date Time Temp Pulse Resp B/P (MAP) Pulse Ox O2 Delivery O2 Flow Rate FiO2 11/19/17 19:27 65 16 157/77 (103) 97 Room Air 11/19/17 17:00 97.8 Orders Orders Electrocardiogram (11/19/17 11:43) Complete Blood Count With Diff (11/19/17 11:43) Comprehensive Metabolic Panel (11/19/17 11:43) Magnesium (Mg) (11/19/17 11:43) Ckmb (Isoenzyme) Profile (11/19/17 11:43) Troponin I (11/19/17 11:43) Act Partial Throm Time (Ptt) (11/19/17 11:43) Prothrombin Time / Inr (Pt) (11/19/17 11:43) Urinalysis - C+S If Indicated (11/19/17 11:43) Ct Brain W/O Iv Contrast(Rout) (11/19/17 11:43) Urine Culture (11/19/17 12:45) Us Abdomen Liver (11/19/17 ) Nitrofurantoin Monohyd Macrocr (Macrobid (11/19/17 16:15) Admit Order (Ed Use Only) (11/19/17 19:32) Labs Laboratory Tests Test 11/19/17 12:45 11/19/17 13:10 Urine Color YELLOW Urine Turbidity CLEAR Urine pH 5.5 Urine Specific [place] 1.013 Urine Protein TRACE mg/dL Urine Glucose (UA) NEG mg/dL Urine Ketones NEG mg/dL Urine Occult Blood SMALL Urine Nitrite NEG Urine Bilirubin NEG Urine Urobilinogen 2.0 MG/DL Urine Leukocyte Esterase SMALL Urine RBC 4 /hpf Urine WBC 14 /hpf Urine Squamous Epithelial Cells 1 /hpf Urine Mucus MANY /lpf Microscopic Urinalysis Comment CULTURE INDICATED White Blood Count 7.1 TH/MM3 Red Blood Count 3.78 MIL/MM3 Hemoglobin 12.1 GM/DL Hematocrit 35.5 % Mean Corpuscular Volume 93.7 FL Mean Corpuscular Hemoglobin 32.1 PG Mean Corpuscular Hemoglobin Concent 34.2 % Red Cell Distribution Width 13.4 % Platelet Count 286 TH/MM3 Mean Platelet Volume 7.8 FL Neutrophils (%) (Auto) 51.2 % Lymphocytes (%) (Auto) 16.2 % Monocytes (%) (Auto) 7.7 % Eosinophils (%) (Auto) 24.6 % Basophils (%) (Auto) 0.3 % Neutrophils # (Auto) 3.6 TH/MM3 Lymphocytes # (Auto) 1.1 TH/MM3 Monocytes # (Auto) 0.5 TH/MM3 Eosinophils # (Auto) 1.7 TH/MM3 Basophils # (Auto) 0.0 TH/MM3 CBC Comment DIFF FINAL Differential Comment Prothrombin Time 12.1 SEC Prothromb Time International Ratio 1.2 RATIO Activated Partial Thromboplast Time 27.6 SEC Blood Urea Nitrogen 8 MG/DL Creatinine 0.82 MG/DL Random Glucose 92 MG/DL Total Protein 6.9 GM/DL Albumin 3.3 GM/DL Calcium Level 8.3 MG/DL Magnesium Level 2.2 MG/DL Alkaline Phosphatase 455 U/L Aspartate Amino Transf (AST/SGOT) 409 U/L Alanine Aminotransferase (ALT/SGPT) 324 U/L Total Bilirubin 1.3 MG/DL Sodium Level 141 MEQ/L Potassium Level 3.7 MEQ/L Chloride Level 107 MEQ/L Carbon Dioxide Level 27.6 MEQ/L Anion Gap 6 MEQ/L Estimat Glomerular Filtration Rate 68 ML/MIN Total Creatine Kinase 46 U/L Troponin I LESS THAN 0.02 NG/ML MDM Medical Decision Making Medical Screen Exam Complete: Yes Emergency Medical Condition: Yes Medical Record Reviewed: Yes Differential Diagnosis Hepatitis, medication induced hepatitis, Narrative Course 4:43 PM blood test results are back and patient's liver function seems to be significantly elevated. This is acute. Upon looking at her list of medications seems like she is on atorvastatin that can cause a liver function to go up. I have asked her to stop taking that. I have ordered ultrasound of her liver. UA seems to be positive for UTI. I have given her dose of Macrobid. Awaiting for the ultrasound to be done and resulted. 6:44 PM ultrasound report just came back and shows gallstones with thickened gallbladder wall. With elevated LFTs patient would require further test to look for blockage. I would like to admit her at this point. Awaiting for the hospitalist call back. I explained all this to the patient and her . I have answered all the questions to the best of my ability. Procedures EKG Prior to Arrival: No Diagnosis Primary Impression: Acute cholecystitis Additional Impression: Elevated liver enzymes Admitting Information Admitting Physician Requests: Admit Scripts Metronidazole (Flagyl) 250 Mg Tab 250 MG PO Q8HR for antibiotics for 6 Days, TAB 0 Refills Prov: Zohra Townsend 11/21/17 Levofloxacin (Levaquin) 500 Mg Tablet 500 MG PO DAILY for antibiotic for 6 Days, #6 EACH 0 Refills Prov: Zohra Townsend 11/21/17 Praneeth Huertas MD Nov 19, 2017 15:58
[2017-11-19] MEDS ORDERED: NITROFURANTOIN MONOHYD MACROCR 100 MG CAP PO ONE (16:15)
[2017-11-19 17:00] VITALS: BP 118/68; PULSE 64; RESP 15; TEMP 97.8; O2SAT 98
--- NOTE | 2017-11-19 18:31 | RADRPT ---
EXAM DATE/TIME: 11/19/2017 16:40 [facility] COMPARISON: No previous studies available for comparison. INDICATIONS : MEDICAL HISTORY : SURGICAL HISTORY : Right hip replacement. ENCOUNTER: Initial ACUITY: 1 day PAIN SCORE: LOCATION: MEASUREMENTS: LIVER: 16.2 cm length COMMON DUCT: >20 mm RIGHT KIDNEY: 10.4 x 5.0 x 4.1 cm .1.0 x 1.2 x 1.0 cm stone mid pole SPLEEN: 10.0 cm length FINDINGS: The liver is mildly enlarged. No focal mass is noted. No biliary ductal dilatation is noted. The wall of the gallbladder is thickened. If there is clinical concern for acute cholecystitis a hepatobiliar y scan may be helpful to confirm cystic duct obstruction. No pericholecystic fluid or sonographic Mur phy's sign is noted. Gallstone is noted within the gallbladder. There is a nonobstructing right renal calculus measuring 12 mm. There is no focal abnormality involving the head or body of the pancreas. The tail of the pancreas is obscured by overlying bowel gas. The spleen is normal in size. CONCLUSION: 1. Thick-walled gallbladder containing gallstone. If there is clinical concern for acute cholecystiti s a hepatobiliary scan may be helpful to confirm cystic duct obstruction. 2. Hepatomegaly. 3. 12 mm calcified nonobstructing right renal calculus. Jurgen Armstrong MD on November 19, 2017 at 18:23 Board Certified Radiologist. This report was verified electronically.
[2017-11-19 19:27] VITALS: BP 157/77; PULSE 65; RESP 16; O2SAT 97
[2017-11-19] MEDS ORDERED: MECLIZINE HCL 25 MG TAB PO PRN (19:45)
[2017-11-19] MEDS ORDERED: DOXYLAMINE SUCCINATE PO PRN (19:45)
[2017-11-19] MEDS ORDERED: SENNOSIDES 8.6 MG TAB PO PRN (20:15)
[2017-11-19] MEDS ORDERED: MAGNESIUM HYDROXIDE SUSP 30 ML CUP PO PRN (20:15)
[2017-11-19] MEDS ORDERED: ONDANSETRON HCL 4 MG/2 ML VIAL IVP PRN (20:15)
[2017-11-19] MEDS ORDERED: SODIUM CHLORIDE 0.9% FLUSH 10 ML FLUSH IV FLUSH PRN (20:15)
[2017-11-19] MEDS ORDERED: NALOXONE HCL 0.4 MG/ML AMP IV PUSH PRN (20:15)
[2017-11-19] MEDS ORDERED: BISACODYL 10 MG SUPP RECTAL PRN (20:15)
[2017-11-19] MEDS ORDERED: LACTULOSE SYRUP 20 GM/30 ML CUP PO PRN (20:15)
[2017-11-19] MEDS: LEVOFLOXACIN 500 MG PREMIX INJ 100 ML IV SCH (20:32)
[2017-11-19] MEDS: SODIUM CHLORIDE 0.9% FLUSH 10 ML FLUSH IV FLUSH SCH (21:00)
[2017-11-19] MEDS: ACETAMINOPHEN/HYDROcodone 325 MG/10 MG TAB PO PRN (21:58)
[2017-11-19 22:04] VITALS: BP 142/66; PULSE 57; RESP 18; TEMP 97.6; O2SAT 97
[2017-11-19] MEDS ORDERED: TEMAZEPAM 15 MG CAP PO ONE (22:15)
--- NOTE | 2017-11-19 22:24 | HHI.HP ---
HPI Service [facility] Hospitalists Primary Care Physician Timo Batres MD Admission Diagnosis Acute cholecystitis, elevated LFTs Chief Complaint: elevated liver function ultrasound cholecystitis Travel History International Travel<30 Days: No Contact w/Intl Traveler <30 Da: No Traveled to Known Affected Are: No History of Present Illness 72-year-old female came to the emergency room sent by her primary care to get a CAT scan for her headache and dizziness that has been going on for past 2 weeks. Patient says this all started after she had her left hip replaced. No history of syncopal episode or fall. Patient has been taking meclizine which is not helping. There was workup initiated while she was in triage and in the waiting room. She does not appear to be in any significant discomfort. Vital signs are stable Patient has had mid back pain and radiation to neck and head which was reason she came to hospital and on work up had significant elevation LFT's and ultrasound consistent with cholecystitis and admit for GI evaluation . Except for mid back pain no nausea vomit or abdominal pain. Review of Systems Other headache neck pain mid back pain Past Family Social History Past Medical History dementia,depression Past Surgical History left hip surgery in september 2017,tonsil ,vein surgery years ago Reported Medications Xarelto (Rivaroxaban) 10 Mg Tab 10 Mg PO DAILY 14 Days Aspirin 325 Mg Tab 325 Mg PO DAILY Hydrocodone-Acetaminophen 10-325 mg Tab 1 Tab PO Q4H PRN Meclizine (Meclizine HCl) 25 Mg Tab 25 Mg PO TID PRN Reported Unisom Sleep Aid (Doxylamine Succinate) 25 Mg Tablet 1 Tab PO HS PRN Atorvastatin (Atorvastatin Calcium) 40 Mg Tab 40 Mg PO HS D3 Maximum Strength (Cholecalciferol) 5,000 Unit Cap 2,000 Units PO DAILY Donepezil 5 Mg Tab 5 Mg PO HS Citalopram (Citalopram Hydrobromide) 40 Mg Tab 40 Mg PO DAILY Bupropion HCl ER 24 HR (Bupropion HCl) 150 Mg Tab 150 Mg PO DAILY Alprazolam 1 Mg Tab 1 Mg PO BID Allergies: Coded Allergies: penicillin G (Verified Allergy, Severe, Swelling, hives, 11/19/17) Social History NS,ND Physical Exam Vital Signs Vital Signs Date Time Temp Pulse Resp B/P (MAP) Pulse Ox O2 Delivery O2 Flow Rate FiO2 11/19/17 22:04 97.6 57 18 142/66 (91) 97 11/19/17 19:27 65 16 157/77 (103) 97 Room Air 11/19/17 17:00 97.8 64 15 118/68 (85) 98 Room Air 11/19/17 15:45 62 16 98 Room Air 11/19/17 15:45 97.8 62 16 130/68 (88) 98 Room Air 11/19/17 11:37 97.9 68 17 121/73 (89) 97 Physical Exam GENERAL: This is a well-nourished, well-developed patient, in no apparent distress. SKIN: No rashes, ecchymoses or lesions. Cool and dry. HEAD: Atraumatic. Normocephalic. No temporal or scalp tenderness. EYES: Pupils equal round and reactive. Extraocular motions intact. No scleral icterus. No injection or drainage. ENT: Nose without bleeding, purulent drainage or septal hematoma. Throat without erythema, tonsillar hypertrophy or exudate. Uvula midline. Airway patent. NECK: Trachea midline. No JVD or lymphadenopathy. Supple, nontender, no meningeal signs. CARDIOVASCULAR: Regular rate and rhythm without murmurs, gallops, or rubs. RESPIRATORY: Clear to auscultation. Breath sounds equal bilaterally. No wheezes , rales, or rhonchi. GASTROINTESTINAL: Abdomen soft, non-tender, nondistended. No hepato-splenomegaly , or palpable masses. No guarding. MUSCULOSKELETAL: Extremities without clubbing, cyanosis, or edema. No joint tenderness, effusion, or edema noted. No calf tenderness. Negative Homans sign bilaterally. NEUROLOGICAL: Awake and alert. Cranial nerves II through XII intact. Motor and sensory grossly within normal limits. Five out of 5 muscle strength in all muscle groups. Normal speech. Laboratory Laboratory Tests Test 11/19/17 12:45 11/19/17 13:10 Urine Color YELLOW Urine Turbidity CLEAR Urine pH 5.5 Urine Specific [place] 1.013 Urine Protein TRACE Urine Glucose (UA) NEG Urine Ketones NEG Urine Occult Blood SMALL Urine Nitrite NEG Urine Bilirubin NEG Urine Urobilinogen 2.0 Urine Leukocyte Esterase SMALL Urine RBC 4 Urine WBC 14 Urine Squamous Epithelial Cells 1 Urine Mucus MANY Microscopic Urinalysis Comment CULTURE INDICATED White Blood Count 7.1 Red Blood Count 3.78 Hemoglobin 12.1 Hematocrit 35.5 Mean Corpuscular Volume 93.7 Mean Corpuscular Hemoglobin 32.1 Mean Corpuscular Hemoglobin Concent 34.2 Red Cell Distribution Width 13.4 Platelet Count 286 Mean Platelet Volume 7.8 Neutrophils (%) (Auto) 51.2 Lymphocytes (%) (Auto) 16.2 Monocytes (%) (Auto) 7.7 Eosinophils (%) (Auto) 24.6 Basophils (%) (Auto) 0.3 Neutrophils # (Auto) 3.6 Lymphocytes # (Auto) 1.1 Monocytes # (Auto) 0.5 Eosinophils # (Auto) 1.7 Basophils # (Auto) 0.0 CBC Comment DIFF FINAL Differential Comment Prothrombin Time 12.1 Prothromb Time International Ratio 1.2 Activated Partial Thromboplast Time 27.6 Blood Urea Nitrogen 8 Creatinine 0.82 Random Glucose 92 Total Protein 6.9 Albumin 3.3 Calcium Level 8.3 Magnesium Level 2.2 Alkaline Phosphatase 455 Aspartate Amino Transf (AST/SGOT) 409 Alanine Aminotransferase (ALT/SGPT) 324 Total Bilirubin 1.3 Sodium Level 141 Potassium Level 3.7 Chloride Level 107 Carbon Dioxide Level 27.6 Anion Gap 6 Estimat Glomerular Filtration Rate 68 Total Creatine Kinase 46 Troponin I LESS THAN 0.02 Date/Time Source Procedure Growth Status 11/19/17 12:45 Urine Clean Catch Urine Culture Pending Received Result Diagram: 11/19/17 1310 11/19/17 1310 Imaging Last [address] 11/19/17 1143 Signed Impressions: Service Date/Time: Sunday, November 19, 2017 11:59 - CONCLUSION: 1. Stable noncontrast head CT. No acute intracranial abnormality is identified. 2. Stable chronic changes include mild generalized atrophy and chronic periventricular white matter change. Josué Smith MD Liver Ultrasound 11/19/17 0000 Signed Impressions: Service Date/Time: Sunday, November 19, 2017 16:40 - CONCLUSION: 1. Thick-walled gallbladder containing gallstone. If there is clinical concern for acute cholecystitis a hepatobiliary scan may be helpful to confirm cystic duct obstruction. 2. Hepatomegaly. 3. 12 mm calcified nonobstructing right renal calculus. Jurgen Armstrong MD Caprini VTE Risk Assessment Caprini VTE Risk Assessment: Mod/High Risk (score >= 2) Caprini Risk Assessment Model Point Value = 1 Point Value = 2 Point Value = 3 Point Value = 5 Age 41-60 Minor surgery BMI > 25 kg/m2 Swollen legs Varicose veins or History of unexplained or recurrent spontaneous Oral contraceptives or hormone replacement Sepsis (< 1 month) Serious lung disease, including pneumonia (< 1 month) Abnormal pulmonary function Acute myocardial infarction Congestive heart failure (< 1 month) History of inflammatory bowel disease Medical patient at bed rest Age 61-74 Arthroscopic surgery Major open surgery (> 45 min) Laparoscopic surgery (> 45 min) Malignancy Confined to bed (> 72 hours) Immobilizing plaster cast Central venous access Age >= 75 History of VTE Family history of VTE Factor V Leiden Prothrombin [id number] Lupus anticoagulant Anticardiolipin antibodies Elevated serum homocysteine Heparin-induced thrombocytopenia Other congenital or acquired thrombophilia Stroke (< 1 month) Elective arthroplasty Hip, pelvis, or leg fracture Acute spinal cord injury (< 1 month) Prophylaxis Regimen Total Risk Factor Score Risk Level Prophylaxis Regimen 0-1 Low Early ambulation 2 Moderate Order ONE of the following: *Sequential Compression Device (SCD) *Heparin 5000 units SQ BID 3-4 Higher Order ONE of the following medications: *Heparin 5000 units SQ TID *Enoxaparin/Lovenox 40 mg SQ daily (WT < 150 kg, CrCl > 30 mL/min) *Enoxaparin/Lovenox 30 mg SQ daily (WT < 150 kg, CrCl > 10-29 mL/min) *Enoxaparin/Lovenox 30 mg SQ BID (WT < 150 kg, CrCl > 30 mL/min) AND/OR *Sequential Compression Device (SCD) 5 or more Highest Order ONE of the following medications: *Heparin 5000 units SQ TID (Preferred with Epidurals) *Enoxaparin/Lovenox 40 mg SQ daily (WT < 150 kg, CrCl > 30 mL/min) *Enoxaparin/Lovenox 30 mg SQ daily (WT < 150 kg, CrCl > 10-29 mL/min) *Enoxaparin/Lovenox 30 mg SQ BID (WT < 150 kg, CrCl > 30 mL/min) AND *Sequential Compression Device (SCD) Assessment and Plan Problem List: (1) Acute cholecystitis ICD Codes: K81.0 - Acute cholecystitis Status: Acute Plan: based on ultrasound will start fluids and levaquin consult GI and get HIDA scan (2) Elevated liver enzymes ICD Codes: R74.8 - Abnormal levels of other serum enzymes Status: Acute Plan: as above (3) Head ache ICD Codes: R51 - Headache Plan: ? etiology CT unremarkable may get MRI if symptoms continue Assessment and Plan further plan as case develops note patient very anxious on ativan and requested sleep medication Code Status full Discussed Condition With patient and daughter Physician Certification 2 Midnight Certification Type: Admission for Inpatient Services Order for Inpatient Services The services are ordered in accordance with Medicare regulations or non- Medicare payer requirements, as applicable. In the case of services not specified as inpatient-only, they are appropriately provided as inpatient services in accordance with the 2-midnight benchmark. Estimated LOS (days): 3 3 days is the estimated time the patient will need to remain in the hospital, assuming treatment plan goals are met and no additional complications. Post-Hospital Plan: Not yet determined Ezio Hassan MD Nov 19, 2017 22:24
[2017-11-19] MEDS: DOCUSATE SODIUM 50 MG/SENNA 8.6 MG TAB PO SCH (23:05)
[2017-11-19] MEDS: DONEPEZIL HCL 5 MG TAB PO SCH (23:05)
[2017-11-19] MEDS: ALPRAZolam 1 MG TAB PO SCH (23:05)
[2017-11-20] VITALS (7 sets, daily range): BP systolic 100–123; BP diastolic 56–62; PULSE 56–64; RESP 18; TEMP 97.5–98; O2SAT 94–98
[2017-11-20] MEDS: ACETAMINOPHEN/HYDROcodone 325 MG/10 MG TAB PO PRN (02:52)
[2017-11-20 06:58] LABS: AUTOMATED NEUTROPHIL # 2.9 TH/MM3 (1.8-7.7); BASOPHIL % 0.7 % (0.0-2.0); EOSINOPHIL % 29.9 % (0.0-4.0); HEMATOCRIT 32.9 % (35.0-46.0); HEMOGLOBIN 11.1 GM/DL (11.6-15.3); LYMPHOCYTE # 1.2 TH/MM3 (1.0-4.8); MEAN CORPUSCULAR HEMOGLOBIN 31.8 PG (27.0-34.0); MEAN CORPUSCULAR HGB CONC 33.9 % (32.0-36.0); MEAN PLATELET VOLUME 8.3 FL (7.0-11.0); MONO % 8.3 % (0.0-8.0); MONOCYTE # 0.6 TH/MM3 (0-0.9); NEUT % 43.1 % (16.0-70.0); PLATELET COUNT 233 TH/MM3 (150-450); RED CELL DISTRIBUTION WIDTH 13.2 % (11.6-17.2); WHITE BLOOD COUNT 6.7 TH/MM3 (4.0-11.0)
[2017-11-20 07:12] LABS: ALBUMIN 2.9 GM/DL (3.4-5.0); AST (GOT) 196 U/L (15-37); BICARBONATE 27.4 MEQ/L (21.0-32.0); BLOOD UREA NITROGEN 8 MG/DL (7-18); CALCIUM 8.4 MG/DL (8.5-10.1); CHLORIDE 107 MEQ/L (98-107); CREATININE 0.62 MG/DL (0.50-1.00); GLOMERULAR FILTRATION RATE 94 ML/MIN (>89); GLUCOSE,RANDOM 72 MG/DL (74-106); SODIUM (NA) 140 MEQ/L (136-145)
[2017-11-20 07:13] LABS: ALT (GPT) 228 U/L (10-53)
[2017-11-20 07:15] LABS: ALKALINE PHOSPHATASE 385 U/L (45-117); TOTAL BILIRUBIN ADULT 0.9 MG/DL (0.2-1.0); TOTAL PROTEIN 6.2 GM/DL (6.4-8.2)
[2017-11-20] MEDS: SODIUM CHLORIDE 0.9% FLUSH 10 ML FLUSH IV FLUSH SCH ×2 (09:00→20:44)
[2017-11-20] MEDS ORDERED: RIVAROXABAN 10 MG TAB PO SCH (09:00)
--- NOTE | 2017-11-20 09:27 | EKG ---
Date Performed: 11/19/2017 Time Performed: 13:15:22 PTAGE: 72 years EKG: SINUS BRADYCARDIA LEFT ANTERIOR FASCICULAR BLOCK Probable old inferior infarction Poor R-wa ve progression ABNORMAL ECG PREVIOUS TRACING : 03/24/2017 11.30 Since the prior tracing, there has been no significant mason DOCTOR: Bharat Curiel Interpretating Date/Time 11/20/2017 09:24:37
--- NOTE | 2017-11-20 09:33 | PD.CONS ---
HPI History of Present Illness This is a 72 year old lady with memory deficits who presented to the ER for a headache in the back of her head. SHe is s/p hip replacement 10/08/17. She does admit a loss of 20 lbs after the hip surgery and decreased appetite. GI has been conslted for cholecystitis and elevated LFTs. Pt denies any GI symptoms however granddaughter reports she has been having diarrhea, n/v intermittently for the last 2 weeks. She quit pain meds for surgery 1 week ago. SHe fell out of bed recently and has been having vertigo. SHe takes a "memory pill" She doesn't know names of medications she takes. She has had a colonoscopy couple years ago, with [facility] findings of diverticulosis. Family reports pt has been eating much less and drinking fluids less. Pt has been taking Aleve frequently since the hip surgery. Pt has been nauseous and vomiting per granddaughter. Pt is poor historian. Some hx obtained from pt's granddaughter. (Bee Israel) PFSH Past Medical History CVA HLD HTN Past Surgical History hip replacement (Bee Israel) Coded Allergies: penicillin G (Verified Allergy, Severe, Swelling, hives, 11/19/17) Family History brca Social History denies etoh, tobacco, illicit drug use (Bee Israel) Review of Systems Constitutional: COMPLAINS OF: Weight loss, DENIES: Fever Eyes: DENIES: Photosensitivity Ears, nose, mouth, throat: DENIES: Hearing loss Respiratory: DENIES: Cough Cardiovascular: DENIES: Chest pain Gastrointestinal: DENIES: Abdominal pain, Black stools, Bloody stools, Constipation, Diarrhea, Nausea, Vomiting Genitourinary: DENIES: Hematuria Musculoskeletal: DENIES: Joint Swelling Integumentary: DENIES: Abnormal pigmentation Immunologic/allergic: DENIES: Eczema Neurologic: DENIES: Abnormal gait Psychiatric: COMPLAINS OF: Confusion (Bee Israel) GI Exam Vitals I&O Vital Signs Date Time Temp Pulse Resp B/P (MAP) Pulse Ox O2 Delivery O2 Flow Rate FiO2 11/20/17 08:09 98.0 58 18 111/62 (78) 94 11/20/17 04:05 97.5 56 18 104/58 (73) 96 11/20/17 00:23 97.5 64 18 100/59 (73) 94 11/19/17 22:58 18 11/19/17 22:04 97.6 57 18 142/66 (91) 97 11/19/17 19:27 65 16 157/77 (103) 97 Room Air 11/19/17 17:00 97.8 64 15 118/68 (85) 98 Room Air 11/19/17 15:45 62 16 98 Room Air 11/19/17 15:45 97.8 62 16 130/68 (88) 98 Room Air 11/19/17 11:37 97.9 68 17 121/73 (89) 97 Imaging Last Impressions Head CT 11/19/17 1143 Signed Impressions: Service Date/Time: Sunday, November 19, 2017 11:59 - CONCLUSION: 1. Stable noncontrast head CT. No acute intracranial abnormality is identified. 2. Stable chronic changes include mild generalized atrophy and chronic periventricular white matter change. Josué Smith MD Liver Ultrasound 11/19/17 0000 Signed Impressions: Service Date/Time: Sunday, November 19, 2017 16:40 - CONCLUSION: 1. Thick-walled gallbladder containing gallstone. If there is clinical concern for acute cholecystitis a hepatobiliary scan may be helpful to confirm cystic duct obstruction. 2. Hepatomegaly. 3. 12 mm calcified nonobstructing right renal calculus. Jurgen Armstrong MD Laboratory Test 11/19/17 12:45 11/19/17 13:10 11/20/17 06:39 Urine Color YELLOW Urine Turbidity CLEAR Urine pH 5.5 Urine Specific [place] 1.013 Urine Protein TRACE mg/dL Urine Glucose (UA) NEG mg/dL Urine Ketones NEG mg/dL Urine Occult Blood SMALL Urine Nitrite NEG Urine Bilirubin NEG Urine Urobilinogen 2.0 MG/DL Urine Leukocyte Esterase SMALL Urine RBC 4 /hpf Urine WBC 14 /hpf Urine Squamous Epithelial Cells 1 /hpf Urine Mucus MANY /lpf Microscopic Urinalysis Comment CULTURE INDICATED White Blood Count 7.1 TH/MM3 6.7 TH/MM3 Red Blood Count 3.78 MIL/MM3 3.50 MIL/MM3 Hemoglobin 12.1 GM/DL 11.1 GM/DL Hematocrit 35.5 % 32.9 % Mean Corpuscular Volume 93.7 FL 94.0 FL Mean Corpuscular Hemoglobin 32.1 PG 31.8 PG Mean Corpuscular Hemoglobin Concent 34.2 % 33.9 % Red Cell Distribution Width 13.4 % 13.2 % Platelet Count 286 TH/MM3 233 TH/MM3 Mean Platelet Volume 7.8 FL 8.3 FL Neutrophils (%) (Auto) 51.2 % 43.1 % Lymphocytes (%) (Auto) 16.2 % 18.0 % Monocytes (%) (Auto) 7.7 % 8.3 % Eosinophils (%) (Auto) 24.6 % 29.9 % Basophils (%) (Auto) 0.3 % 0.7 % Neutrophils # (Auto) 3.6 TH/MM3 2.9 TH/MM3 Lymphocytes # (Auto) 1.1 TH/MM3 1.2 TH/MM3 Monocytes # (Auto) 0.5 TH/MM3 0.6 TH/MM3 Eosinophils # (Auto) 1.7 TH/MM3 2.0 TH/MM3 Basophils # (Auto) 0.0 TH/MM3 0.0 TH/MM3 CBC Comment DIFF FINAL DIFF FINAL Differential Comment Prothrombin Time 12.1 SEC Prothromb Time International Ratio 1.2 RATIO Activated Partial Thromboplast Time 27.6 SEC Blood Urea Nitrogen 8 MG/DL 8 MG/DL Creatinine 0.82 MG/DL 0.62 MG/DL Random Glucose 92 MG/DL 72 MG/DL Total Protein 6.9 GM/DL 6.2 GM/DL Albumin 3.3 GM/DL 2.9 GM/DL Calcium Level 8.3 MG/DL 8.4 MG/DL Magnesium Level 2.2 MG/DL Alkaline Phosphatase 455 U/L 385 U/L Aspartate Amino Transf (AST/SGOT) 409 U/L 196 U/L Alanine Aminotransferase (ALT/SGPT) 324 U/L 228 U/L Total Bilirubin 1.3 MG/DL 0.9 MG/DL Sodium Level 141 MEQ/L 140 MEQ/L Potassium Level 3.7 MEQ/L 3.7 MEQ/L Chloride Level 107 MEQ/L 107 MEQ/L Carbon Dioxide Level 27.6 MEQ/L 27.4 MEQ/L Anion Gap 6 MEQ/L 6 MEQ/L Estimat Glomerular Filtration Rate 68 ML/MIN 94 ML/MIN Total Creatine Kinase 46 U/L Troponin I LESS THAN 0.02 NG/ML Date/Time Source Procedure Growth Status 11/19/17 12:45 Urine Clean Catch Urine Culture Pending Received Physical Examination HEENT: PERRL; normocephalic; atraumatic; no jaundice. CHEST: Chest is clear to auscultation and percussion. CARDIAC: Regular rate and rhythm with no murmur gallop or rubs. ABDOMEN: Soft, nondistended, nontender; no hepatosplenomegaly; bowel sounds are present in all four quadrants. EXTREMITIES: No clubbing, cyanosis, or edema. SKIN: Normal; no rash; no jaundice. [employer]: alert, oriented to self and place; not time (Bee Israel) Assessment and Plan Plan ASSESSMENT - elevated LFTs - unclear etiology, could be gallbladder origin vs DILI vs other cause. US showed thick walled gallbladder with a gallstone. has been taking Aleve. - nausea/vomiting, intermittent diarrhea, decreased appetite, weight loss - could be r/t dysfunctioning gallbladder. last colonoscopy "couple years ago" and diverticulosis found PLAN - await HIDA - if HIDA pos consider GS consult - monitor LFTs - hepatitis panel, liver w/u - supportive care - further recs to follow pt seen by myself and Dr Skinner and this note is written on his behalf (Bee Israel) Plan Patient was seen and examined, agree with above-noted, HIDA scan at 19 minutes visualization of the gallbladder consistent with possible cholecystitis, delayed images will be done, and still no visualization then the patient most likely will need cholecystectomy secondary to cholecystitis (Tima Skinner MD) Bee Israel Nov 20, 2017 09:33 Tima Skinner MD Nov 20, 2017 15:15
--- NOTE | 2017-11-20 11:36 | HHI.PR ---
Subjective Remarks Pt presented to the ER with c/o ACUÑA, mid back pain, and neck pain. Pt found to have elevated LFTs, some improvement today. GB US (11/19) showed thickened GB wall. Pt made NPO upon admission. Pt denies abdominal pain. Pt denies n/v/d Objective Vitals Vital Signs Date Time Temp Pulse Resp B/P (MAP) Pulse Ox O2 Delivery O2 Flow Rate FiO2 11/20/17 08:09 98.0 58 18 111/62 (78) 94 11/20/17 04:05 97.5 56 18 104/58 (73) 96 11/20/17 00:23 97.5 64 18 100/59 (73) 94 11/19/17 22:58 18 11/19/17 22:04 97.6 57 18 142/66 (91) 97 11/19/17 19:27 65 16 157/77 (103) 97 Room Air 11/19/17 17:00 97.8 64 15 118/68 (85) 98 Room Air 11/19/17 15:45 62 16 98 Room Air 11/19/17 15:45 97.8 62 16 130/68 (88) 98 Room Air 11/19/17 11:37 97.9 68 17 121/73 (89) 97 Result Diagram: 11/20/17 0639 11/20/17 0639 Imaging Last [address] 11/19/17 1143 Signed Impressions: Service Date/Time: Sunday, November 19, 2017 11:59 - CONCLUSION: 1. Stable noncontrast head CT. No acute intracranial abnormality is identified. 2. Stable chronic changes include mild generalized atrophy and chronic periventricular white matter change. Josué Smith MD Liver Ultrasound 11/19/17 0000 Signed Impressions: Service Date/Time: Sunday, November 19, 2017 16:40 - CONCLUSION: 1. Thick-walled gallbladder containing gallstone. If there is clinical concern for acute cholecystitis a hepatobiliary scan may be helpful to confirm cystic duct obstruction. 2. Hepatomegaly. 3. 12 mm calcified nonobstructing right renal calculus. Jurgen Armstrong MD A/P Problem List: (1) Acute cholecystitis ICD Codes: K81.0 - Acute cholecystitis Status: Acute Plan: - GB US (11/19) --> thickened GB wall - LFTs improving T. Bili (11/19) 1.3, 0.9 (11/20) Ast 409 (11/19), 196 (11/20) Alt 324 (11/19), 228 (11/20) Alk Phos 445 (11/19), 385 (11/20) - no fever, no leukocytosis - HIDA --> pending - await General Surgery consultation - LFTs --> pending - liver w/u per GI --> pending - levaquin (11/19 - present) - IVFs - DVT prophylaxis - supportive care - obtain PT evaluation - anticipate d/c in 1-2 days (2) Elevated liver enzymes ICD Codes: R74.8 - Abnormal levels of other serum enzymes Status: Acute Plan: as above (3) Head ache ICD Codes: R51 - Headache Status: Chronic Plan: - CT brain (11/19) --> No acute findings, mild generalized atrophy - continue prn norco Problem Qualifiers (1) Head ache: Cisco Perea DO Nov 20, 2017 11:35
[2017-11-20] MEDS: ASPIRIN 325 MG TAB PO SCH (12:24)
[2017-11-20] MEDS: DOCUSATE SODIUM 50 MG/SENNA 8.6 MG TAB PO SCH ×2 (12:24→20:44)
[2017-11-20] MEDS: CITALOPRAM HYDROBROMIDE 40 MG TAB PO SCH (12:24)
[2017-11-20] MEDS: CHOLECALCIFEROL (VIT D3) 5000 UNIT CAP PO SCH (12:25)
[2017-11-20] MEDS: buPROPion HCL 150 MG SUSTAINED RELEASE TAB PO SCH (12:25)
[2017-11-20] MEDS: ALPRAZolam 1 MG TAB PO SCH ×2 (12:25→20:43)
[2017-11-20] MEDS: 1/2 NS + KCL 20 MEQ INJ 1,000 ML IV SCH ×2 (12:27→22:26)
--- NOTE | 2017-11-20 13:34 | PD.CONS ---
HPI Service [facility] General Surgery Consult Requested By Dr. Perea Reason for Consult Cholecystitis Primary Care Physician Timo Batres MD History of Present Illness 72 yo F presents with complaints of dizziness and lightheadedness. On further questioning she related anorexia, inability to tolerate food, weight loss, approximately since total hip arthroplasty on Oct 08. She denies constipation. She was noted to have elevated LFTS and gallbladder u/s reveals gallstones and wall thickening. HIDA scan is pending. Review of Systems Constitutional: COMPLAINS OF: Weight loss, Change in appetite, DENIES: Fever, Chills Eyes: DENIES: Eye inflammation, Eye pain Ears, nose, mouth, throat: DENIES: Nasal discharge, Oral lesions Respiratory: DENIES: Cough, Wheezing Cardiovascular: DENIES: Chest pain, Palpitations Gastrointestinal: COMPLAINS OF: Abdominal pain, Nausea Musculoskeletal: DENIES: Stiffness, Joint Swelling Integumentary: DENIES: Pruritus, Rash Neurologic: DENIES: Paresthesias, Seizures Past Family Social History Past Medical History Dementia Depression Past Surgical History Total left hip Reported Medications Reported Meds & Active Scripts Active Xarelto (Rivaroxaban) 10 Mg Tab 10 Mg PO DAILY 14 Days Aspirin 325 Mg Tab 325 Mg PO DAILY Hydrocodone-Acetaminophen 10-325 mg Tab 1 Tab PO Q4H PRN Meclizine (Meclizine HCl) 25 Mg Tab 25 Mg PO TID PRN Reported Unisom Sleep Aid (Doxylamine Succinate) 25 Mg Tablet 1 Tab PO HS PRN Atorvastatin (Atorvastatin Calcium) 40 Mg Tab 40 Mg PO HS D3 Maximum Strength (Cholecalciferol) 5,000 Unit Cap 2,000 Units PO DAILY Donepezil 5 Mg Tab 5 Mg PO HS Citalopram (Citalopram Hydrobromide) 40 Mg Tab 40 Mg PO DAILY Bupropion HCl ER 24 HR (Bupropion HCl) 150 Mg Tab 150 Mg PO DAILY Alprazolam 1 Mg Tab 1 Mg PO BID Allergies: Coded Allergies: penicillin G (Verified Allergy, Severe, Swelling, hives, 11/19/17) Active Ordered Medications Current Medications Medications (Trade) Dose Ordered Sig/Kevin Route Start Time Stop Time Status Last Admin (Xanax) 1 mg BID PO 11/19/17 21:00 11/20/17 12:25 (Aspirin) 325 mg DAILY PO 11/20/17 09:00 11/20/17 12:24 (Wellbutrin Sr) 150 mg DAILY PO 11/20/17 09:00 11/20/17 12:25 (Vitamin D3) 2,000 units DAILY PO 11/20/17 09:00 11/20/17 12:25 (CeleXA) 40 mg DAILY PO 11/20/17 09:00 11/20/17 12:24 (Aricept) 5 mg HS PO 11/19/17 21:00 11/19/17 23:05 (Casanova 10-325 Mg) 1 tab Q4H PRN PO 11/19/17 19:45 11/20/17 02:52 (Antivert) 25 mg TID PRN PO 11/19/17 19:45 Levofloxacin/ Dextrose 100 ml @ 100 mls/hr Q24H IV 11/19/17 20:00 11/19/17 20:32 (NS Flush) 2 ml UNSCH PRN IV FLUSH 11/19/17 20:15 (NS Flush) 2 ml BID IV FLUSH 11/19/17 21:00 11/19/17 21:00 (Zofran Inj) 4 mg Q6H PRN IVP 11/19/17 20:15 (Narcan Inj) 0.4 mg UNSCH PRN IV PUSH 11/19/17 20:15 (Mariana-Colace) 1 tab BID PO 11/19/17 21:00 11/20/17 12:24 (Milk Of Magnesia Liq) 30 ml Q12H PRN PO 11/19/17 20:15 (Senokot) 17.2 mg Q12H PRN PO 11/19/17 20:15 (Dulcolax Supp) 10 mg DAILY PRN RECTAL 11/19/17 20:15 (Lactulose Liq) 30 ml DAILY PRN PO 11/19/17 20:15 (Restoril) 15 mg HS PRN PO 11/19/17 22:15 Potassium Chloride/Sodium Chloride 1,000 ml @ 84 mls/hr [id number] IV 11/20/17 11:00 11/20/17 12:27 Family History Noncontributory Social History No ETOH, tobacco or drug use Physical Exam Vital Signs Vital Signs Date Time Temp Pulse Resp B/P (MAP) Pulse Ox O2 Delivery O2 Flow Rate FiO2 11/20/17 08:09 98.0 58 18 111/62 (78) 94 11/20/17 04:05 97.5 56 18 104/58 (73) 96 11/20/17 00:23 97.5 64 18 100/59 (73) 94 11/19/17 22:58 18 11/19/17 22:04 97.6 57 18 142/66 (91) 97 11/19/17 19:27 65 16 157/77 (103) 97 Room Air 11/19/17 17:00 97.8 64 15 118/68 (85) 98 Room Air 11/19/17 15:45 62 16 98 Room Air 11/19/17 15:45 97.8 62 16 130/68 (88) 98 Room Air Physical Exam GENERAL: Awake and alert. No acute distress. Cooperative. Overweight. HEAD: Normocephalic. Atraumatic. EYES: Pupils equal round and reactive to light bilaterally. No scleral icterus. ENT: Moist oral mucosa. NECK: Trachea midline. CHEST: Nonlabored breathing. No respiratory distress. CARDIOVASCULAR: Regular rate and rhythm. ABDOMEN: Soft, mild upper abdominal ttp. No rebound or guarding. Negative bonilla's EXTREMITIES: No cyanosis or edema. SKIN: Warm, dry, nonjaundiced. Laboratory Laboratory Tests Test 11/20/17 06:39 White Blood Count 6.7 Red Blood Count 3.50 Hemoglobin 11.1 Hematocrit 32.9 Mean Corpuscular Volume 94.0 Mean Corpuscular Hemoglobin 31.8 Mean Corpuscular Hemoglobin Concent 33.9 Red Cell Distribution Width 13.2 Platelet Count 233 Mean Platelet Volume 8.3 Neutrophils (%) (Auto) 43.1 Lymphocytes (%) (Auto) 18.0 Monocytes (%) (Auto) 8.3 Eosinophils (%) (Auto) 29.9 Basophils (%) (Auto) 0.7 Neutrophils # (Auto) 2.9 Lymphocytes # (Auto) 1.2 Monocytes # (Auto) 0.6 Eosinophils # (Auto) 2.0 Basophils # (Auto) 0.0 CBC Comment DIFF FINAL Differential Comment Blood Urea Nitrogen 8 Creatinine 0.62 Random Glucose 72 Total Protein 6.2 Albumin 2.9 Calcium Level 8.4 Alkaline Phosphatase 385 Aspartate Amino Transf (AST/SGOT) 196 Alanine Aminotransferase (ALT/SGPT) 228 Total Bilirubin 0.9 Sodium Level 140 Potassium Level 3.7 Chloride Level 107 Carbon Dioxide Level 27.4 Anion Gap 6 Estimat Glomerular Filtration Rate 94 Date/Time Source Procedure Growth Status 11/19/17 12:45 Urine Clean Catch Urine Culture Pending Received Result Diagram: 11/20/17 0639 11/20/17 0639 Imaging Last Impressions Head CT 11/19/17 1143 Signed Impressions: Service Date/Time: Sunday, November 19, 2017 11:59 - CONCLUSION: 1. Stable noncontrast head CT. No acute intracranial abnormality is identified. 2. Stable chronic changes include mild generalized atrophy and chronic periventricular white matter change. Josué Smith MD Liver Ultrasound 11/19/17 0000 Signed Impressions: Service Date/Time: Sunday, November 19, 2017 16:40 - CONCLUSION: 1. Thick-walled gallbladder containing gallstone. If there is clinical concern for acute cholecystitis a hepatobiliary scan may be helpful to confirm cystic duct obstruction. 2. Hepatomegaly. 3. 12 mm calcified nonobstructing right renal calculus. Jurgen Armstrong MD Assessment and Plan Assessment and Plan 72 yo F with probable cholecystitis with symptoms for a few weeks. Add Flagyl. F/u HIDA results. My preference would be to treat her with antibiotics and if she improves clinically see her as outpatient to discuss cholecystectomy when inflammation has subsided. Ok for clears after HIDA. Andrzej Peoples MD Nov 20, 2017 13:34
--- NOTE | 2017-11-20 14:47 | RADRPT ---
EXAM DATE/TIME: 11/20/2017 10:11 This report includes an Addendum and supersedes previous reports for this exam. [facility] COMPARISON: US ABDOMEN - LIVER, November 19, 2017, 16:40. INDICATIONS : Abdominal pain. Abnormal ultrasound demonstrating thickwalled gallbladder with cholelithiasis. DOSE: 4.2 mCi Tc99m Mebrofenin IV MEDICAL HISTORY : Dementia. Stroke SURGICAL HISTORY : Tonsillectomy. ENCOUNTER: Initial ACUITY: 1 day PAIN SCALE: 5/10 LOCATION: Right upper quadrant TECHNIQUE: Following the intravenous administration of radiotracer, dynamic sequential images were performed wit h continuous acquisition. FINDINGS: HEPATIC KINETICS: There is prompt uptake of radiotracer in the liver. No focal defects are seen. There is normal rate of washout from the hepatic parenchyma. BILIARY CLEARANCE: Activity is first seen in the extrahepatic biliary system at 10 minutes. There is normal excretion i nto the small bowel. GALLBLADDER: There is no gallbladder visualization. Common bile duct kinetics are normal and there is no evidence of biliary obstruction. BILIARY ENTRIC REFLUX: None observed. CONCLUSION: Nonvisualization of the gallbladder out to 90 minutes. This is consistent with cholec ystitis which could be acute or chronic. Delayed imaging will be performed in this report will be add ended. Meliton Ruiz MD on November 20, 2017 at 14:41 Board Certified Radiologist. This report was verified electronically. ADDENDUM: A 4 hour delayed exam was obtained. This demonstrates a small amount of activity in the gallbladder f tommie region. This likely indicates more chronic cholecystitis. Meliton Ruiz MD on November 20, 2017 at 15:46 Board Certified Radiologist. This report was verified electronically.
[2017-11-20] MEDS: LEVOFLOXACIN 500 MG PREMIX INJ 100 ML IV SCH (20:43)
[2017-11-20] MEDS: TEMAZEPAM 15 MG CAP PO PRN (20:43)
[2017-11-20] MEDS: DONEPEZIL HCL 5 MG TAB PO SCH (20:43)
[2017-11-21 03:56] VITALS: BP 117/61; PULSE 63; RESP 18; TEMP 98.2; O2SAT 96
[2017-11-21 07:57] LABS: ALBUMIN 2.9 GM/DL (3.4-5.0); ALT (GPT) 151 U/L (10-53); AST (GOT) 90 U/L (15-37); DIRECT BILIRUBIN ADULT 0.2 MG/DL (0.0-0.2); IRON (FE) 69 MCG/DL (50-170)
[2017-11-21 08:05] LABS: % SATURATION IRON PROFILE 30.6 % (20-50); ALKALINE PHOSPHATASE 338 U/L (45-117); FERRITIN 101 NG/ML (8-252); INDIRECT BILIRUBIN 0.5 MG/DL (0.0-0.8); TOTAL BILIRUBIN ADULT 0.7 MG/DL (0.2-1.0); TOTAL IRON BINDING CAPACITY 225 MCG/DL (250-450); TOTAL PROTEIN 6.2 GM/DL (6.4-8.2)
[2017-11-21 08:50] VITALS: BP 122/59; PULSE 62; RESP 18; TEMP 96.1; O2SAT 97
[2017-11-21] MEDS: DOCUSATE SODIUM 50 MG/SENNA 8.6 MG TAB PO SCH ×2 (09:00→21:00)
[2017-11-21] MEDS: SODIUM CHLORIDE 0.9% FLUSH 10 ML FLUSH IV FLUSH SCH ×2 (09:00→21:00)
--- NOTE | 2017-11-21 09:58 | HHI.PR ---
Subjective Subjective Notes No real complaints. Wants more food. Objective Vitals/I&O Vital Signs Date Time Temp Pulse Resp B/P (MAP) Pulse Ox O2 Delivery O2 Flow Rate FiO2 11/21/17 08:50 96.1 62 18 122/59 (80) 97 11/19/17 19:27 Room Air Labs Laboratory Tests Test 11/21/17 07:00 Iron Level 69 Total Iron Binding Capacity 225 Percent Iron Saturation 30.6 Ferritin 101 Total Bilirubin 0.7 Direct Bilirubin 0.2 Indirect Bilirubin 0.5 Aspartate Amino Transf (AST/SGOT) 90 Alanine Aminotransferase (ALT/SGPT) 151 Alkaline Phosphatase 338 Total Protein 6.2 Albumin 2.9 Tumor Marker Alpha Fetoprotein 4.3 Date/Time Source Procedure Growth Status 11/19/17 12:45 Urine Clean Catch Urine Culture - Preliminary 10-50,000 CFU/ML MIXED GRAM POSITIVE ... Resulted Radiology Last Impressions Head CT 11/19/17 1143 Signed Impressions: Service Date/Time: Sunday, November 19, 2017 11:59 - CONCLUSION: 1. Stable noncontrast head CT. No acute intracranial abnormality is identified. 2. Stable chronic changes include mild generalized atrophy and chronic periventricular white matter change. Josué Smith MD Liver Ultrasound 11/19/17 0000 Signed Impressions: Service Date/Time: Sunday, November 19, 2017 16:40 - CONCLUSION: 1. Thick-walled gallbladder containing gallstone. If there is clinical concern for acute cholecystitis a hepatobiliary scan may be helpful to confirm cystic duct obstruction. 2. Hepatomegaly. 3. 12 mm calcified nonobstructing right renal calculus. Jurgen Armstrong MD Narrative Exam NAD Moderate epigastric and RUQ ttp A/P Assessment and Plan 72 yo F with cholecystitis likely for a couple of weeks based on her symptoms. WBC nml. LFTS somewhat improved. U/s showed wall thickening and stones. HIDA on delayed images shows small amt filling of gallbladder likely consistent with more chronic cholecystitis. She probably has acute and chronic cholecystitis and due to duration of her symptoms I would like to try to treat her with antibiotics only for now. Start low fat diet. Andrzej Peoples MD Nov 21, 2017 09:58
[2017-11-21] MEDS: ASPIRIN 325 MG TAB PO SCH (10:49)
[2017-11-21] MEDS: CHOLECALCIFEROL (VIT D3) 5000 UNIT CAP PO SCH (10:49)
--- NOTE | 2017-11-21 10:49 | HHI.PR ---
Subjective Remarks Patient asking. "why can't they take it out while I'm here." referring to her gallbladder. Patient offers no other complaints tolerating PO intake Objective Vitals Vital Signs Date Time Temp Pulse Resp B/P (MAP) Pulse Ox O2 Delivery O2 Flow Rate FiO2 11/21/17 08:50 96.1 62 18 122/59 (80) 97 11/21/17 03:56 98.2 63 18 117/61 (79) 96 11/20/17 23:20 97.6 63 18 123/56 (78) 94 11/20/17 20:12 97.5 57 18 121/60 (80) 96 11/20/17 18:04 98.0 61 18 101/56 (71) 94 11/20/17 14:13 97.7 61 18 109/59 (76) 98 Result Diagram: 11/20/1739 11/20/1739 Other Results Laboratory Tests Test 11/19/17 12:45 11/19/17 13:10 11/20/17 06:39 11/21/17 07:00 Urine Color YELLOW Urine Turbidity CLEAR Urine pH 5.5 Urine Specific [place] 1.013 Urine Protein TRACE mg/dL Urine Glucose (UA) NEG mg/dL Urine Ketones NEG mg/dL Urine Occult Blood SMALL Urine Nitrite NEG Urine Bilirubin NEG Urine Urobilinogen 2.0 MG/DL Urine Leukocyte Esterase SMALL Urine RBC 4 /hpf Urine WBC 14 /hpf Urine Squamous Epithelial Cells 1 /hpf Urine Mucus MANY /lpf Microscopic Urinalysis Comment CULTURE INDICATED White Blood Count 7.1 TH/MM3 6.7 TH/MM3 Red Blood Count 3.78 MIL/MM3 3.50 MIL/MM3 Hemoglobin 12.1 GM/DL 11.1 GM/DL Hematocrit 35.5 % 32.9 % Mean Corpuscular Volume 93.7 FL 94.0 FL Mean Corpuscular Hemoglobin 32.1 PG 31.8 PG Mean Corpuscular Hemoglobin Concent 34.2 % 33.9 % Red Cell Distribution Width 13.4 % 13.2 % Platelet Count 286 TH/MM3 233 TH/MM3 Mean Platelet Volume 7.8 FL 8.3 FL Neutrophils (%) (Auto) 51.2 % 43.1 % Lymphocytes (%) (Auto) 16.2 % 18.0 % Monocytes (%) (Auto) 7.7 % 8.3 % Eosinophils (%) (Auto) 24.6 % 29.9 % Basophils (%) (Auto) 0.3 % 0.7 % Neutrophils # (Auto) 3.6 TH/MM3 2.9 TH/MM3 Lymphocytes # (Auto) 1.1 TH/MM3 1.2 TH/MM3 Monocytes # (Auto) 0.5 TH/MM3 0.6 TH/MM3 Eosinophils # (Auto) 1.7 TH/MM3 2.0 TH/MM3 Basophils # (Auto) 0.0 TH/MM3 0.0 TH/MM3 CBC Comment DIFF FINAL DIFF FINAL Differential Comment Prothrombin Time 12.1 SEC Prothromb Time International Ratio 1.2 RATIO Activated Partial Thromboplast Time 27.6 SEC Blood Urea Nitrogen 8 MG/DL 8 MG/DL Creatinine 0.82 MG/DL 0.62 MG/DL Random Glucose 92 MG/DL 72 MG/DL Total Protein 6.9 GM/DL 6.2 GM/DL 6.2 GM/DL Albumin 3.3 GM/DL 2.9 GM/DL 2.9 GM/DL Calcium Level 8.3 MG/DL 8.4 MG/DL Magnesium Level 2.2 MG/DL Alkaline Phosphatase 455 U/L 385 U/L 338 U/L Aspartate Amino Transf (AST/SGOT) 409 U/L 196 U/L 90 U/L Alanine Aminotransferase (ALT/SGPT) 324 U/L 228 U/L 151 U/L Total Bilirubin 1.3 MG/DL 0.9 MG/DL 0.7 MG/DL Sodium Level 141 MEQ/L 140 MEQ/L Potassium Level 3.7 MEQ/L 3.7 MEQ/L Chloride Level 107 MEQ/L 107 MEQ/L Carbon Dioxide Level 27.6 MEQ/L 27.4 MEQ/L Anion Gap 6 MEQ/L 6 MEQ/L Estimat Glomerular Filtration Rate 68 ML/MIN 94 ML/MIN Total Creatine Kinase 46 U/L Troponin I LESS THAN 0.02 NG/ML Iron Level 69 MCG/DL Total Iron Binding Capacity 225 MCG/DL Percent Iron Saturation 30.6 % Ferritin 101 NG/ML Direct Bilirubin 0.2 MG/DL Indirect Bilirubin 0.5 MG/DL Tumor Marker Alpha Fetoprotein 4.3 NG/ML Hepatitis A IgM Antibody NEGATIVE Hepatitis B Surface Antigen NEGATIVE Hepatitis B Core IgM Antibody NEGATIVE Hepatitis C Antibody NEGATIVE Imaging Last [address] 11/19/17 1143 Signed Impressions: Service Date/Time: Sunday, November 19, 2017 11:59 - CONCLUSION: 1. Stable noncontrast head CT. No acute intracranial abnormality is identified. 2. Stable chronic changes include mild generalized atrophy and chronic periventricular white matter change. Josué Smith MD Liver Ultrasound 11/19/17 0000 Signed Impressions: Service Date/Time: Sunday, November 19, 2017 16:40 - CONCLUSION: 1. Thick-walled gallbladder containing gallstone. If there is clinical concern for acute cholecystitis a hepatobiliary scan may be helpful to confirm cystic duct obstruction. 2. Hepatomegaly. 3. 12 mm calcified nonobstructing right renal calculus. Jurgen Armstrong MD Objective Remarks GENERAL: This is a well-nourished, well-developed patient, confused but in no apparent distress. CARDIOVASCULAR: Regular rate and rhythm RESPIRATORY: Clear to auscultation. Breath sounds equal bilaterally. GASTROINTESTINAL: Abdomen soft, non-tender, nondistended. Normal active bowel sounds MUSCULOSKELETAL: Extremities without clubbing, cyanosis, or edema. NEURO: Alert with confusion at times. Moves all ext x4 A/P Problem List: (1) Acute cholecystitis ICD Codes: K81.0 - Acute cholecystitis Status: Acute Plan: - GB US (11/19) --> thickened GB wall - LFTs improving T. Bili (11/19) 1.3, 0.9 (11/20), 0.7 (11/21) Ast 409 (11/19), 196 (11/20), 90 (11/21) Alt 324 (11/19), 228 (11/20), 151 (11/21) Alk Phos 445 (11/19), 385 (11/20), 338 (11/21) - no fever, no leukocytosis - HIDA --> pending - await General Surgery consultation - LFTs --> pending - liver w/u per GI --> pending - levaquin (11/19 - present) - IVFs - DVT prophylaxis - supportive care - obtain PT evaluation - Dr. Perea discussed the case with Dr. Peoples agrees with medical management and would like for patient to follow up as outpatient after DC - anticipate d/c in AM if patient continuous to improve Addendum: Patient reports that she was is still taking Xarelto, unsure of why. Discussed the case with orthopedic surgery PA Meliton Lawrence who reports no need for Xarelto at this time, No report of DVT that he is aware of. Discussed the case with Marium CHARLTON at [facility] [place] ([facility] where patient was DC to after hip surgery) no report of DVT. Discussed the case with RN at Dr. Batres's office ( patient's PCP) no report of DVT no documentation of patient taking Xarelto. reviewed outpatient [facility] records no report of DVT. Will DC Xarelto as hip replaced surgery was 10/08/17 and Xarelto was ordered for 14 days total post-op. (2) Elevated liver enzymes ICD Codes: R74.8 - Abnormal levels of other serum enzymes Status: Acute Plan: as above (3) Head ache ICD Codes: R51 - Headache Status: Chronic Plan: - CT brain (11/19) --> No acute findings, mild generalized atrophy - continue prn norco Problem Qualifiers (1) Head ache: Cisco Perea DO Nov 21, 2017 10:49 Zohra Townsend Nov 21, 2017 12:31
[2017-11-21] MEDS: buPROPion HCL 150 MG SUSTAINED RELEASE TAB PO SCH (10:50)
[2017-11-21] MEDS: ALPRAZolam 1 MG TAB PO SCH ×2 (10:50→21:19)
[2017-11-21] MEDS: CITALOPRAM HYDROBROMIDE 40 MG TAB PO SCH (10:51)
[2017-11-21 11:25] LABS: HEPATITIS A AB IGM NEGATIVE (NEGATIVE); HEPATITIS B CORE AB IGM NEGATIVE (NEGATIVE); HEPATITIS B SURFACE ANTIGEN NEGATIVE (NEGATIVE); HEPATITIS C AB IgG NEGATIVE (NEGATIVE)
[2017-11-21] MEDS: 1/2 NS + KCL 20 MEQ INJ 1,000 ML IV SCH (11:25)
[2017-11-21] MEDS: LEVOFLOXACIN 500 MG TAB PO SCH (11:25)
[2017-11-21] MEDS ORDERED: METR250 PO (11:46)
[2017-11-21] MEDS ORDERED: LEVA500T33 PO (11:46)
--- NOTE | 2017-11-21 11:50 | HHI.FF ---
Face to Face Verification Diagnosis: (1) Generalized weakness (2) Elevated liver enzymes (3) Acute cholecystitis Physical Therapy Order: Evaluate and Treat, Improve ambulation, Strength and gait training Home Health Nursing Order: Medical education Signs/symptoms of disease process Medication education-adverse effect Nursing assessment with vital signs Cardiovascular Rn Order: To Evaluate: Living conditions/environment, Support services Order: To Provide: Long range planning, Community services I have seen patient Rona Honeycutt on 11/21/17. My clinical findings support the need for the requested home health care services because: Deconditioned w/ increased weakness Med compliance is questionable Limited ability to care for self I certify that my clinical findings support that this patient is homebound because: Unsteady gait/balance Zohra Townsend Nov 21, 2017 11:50 Cisco Perea DO Nov 21, 2017 14:17
--- NOTE | 2017-11-21 14:09 | HHI.GIFU ---
Subjective Remarks Pt resting in bed, grandaughter/neice at bedside. Nausea improving, pt wants to eat. Objective Vitals I&O Vital Signs Date Time Temp Pulse Resp B/P (MAP) Pulse Ox O2 Delivery O2 Flow Rate FiO2 11/21/17 08:50 96.1 62 18 122/59 (80) 97 11/21/17 03:56 98.2 63 18 117/61 (79) 96 11/20/17 23:20 97.6 63 18 123/56 (78) 94 11/20/17 20:12 97.5 57 18 121/60 (80) 96 11/20/17 18:04 98.0 61 18 101/56 (71) 94 11/20/17 14:13 97.7 61 18 109/59 (76) 98 I/O 11/20/17 11/20/17 11/20/17 11/21/17 11/21/17 11/21/17 07:00 15:00 23:00 07:00 15:00 23:00 Intake Total 475 ml 480 ml 1050 ml Balance 475 ml 480 ml 1050 ml Intake Oral 475 ml 480 ml IV Total 1050 ml # Voids 3 2 4 # Bowel Movements 2 Laboratory Laboratory Tests Test 11/21/17 07:00 Iron Level 69 Total Iron Binding Capacity 225 Percent Iron Saturation 30.6 Ferritin 101 Total Bilirubin 0.7 Direct Bilirubin 0.2 Indirect Bilirubin 0.5 Aspartate Amino Transf (AST/SGOT) 90 Alanine Aminotransferase (ALT/SGPT) 151 Alkaline Phosphatase 338 Total Protein 6.2 Albumin 2.9 Tumor Marker Alpha Fetoprotein 4.3 Hepatitis A IgM Antibody NEGATIVE Hepatitis B Surface Antigen NEGATIVE Hepatitis B Core IgM Antibody NEGATIVE Hepatitis C Antibody NEGATIVE Date/Time Source Procedure Growth Status 11/19/17 12:45 Urine Clean Catch Urine Culture - Final 10-50,000 CFU/ML MIXED GRAM POSITIVE ... Complete Imaging Last Impressions Hepatobiliary Scan Nuclear Medicine 11/20/17 1207 Signed Impressions: Service Date/Time: Monday, November 20, 2017 10:11 - CONCLUSION: Nonvisualization of the gallbladder out to 90 minutes. This is consistent with cholecystitis which could be acute or chronic. Delayed imaging will be performed in this report will be addended. Meliton Ruiz MD ADDENDUM: A 4 hour delayed exam was obtained. This demonstrates a small amount of activity in the gallbladder fossa region. This likely indicates more chronic cholecystitis. Meliton Ruiz MD Head CT 11/19/17 1143 Signed Impressions: Service Date/Time: Sunday, November 19, 2017 11:59 - CONCLUSION: 1. Stable noncontrast head CT. No acute intracranial abnormality is identified. 2. Stable chronic changes include mild generalized atrophy and chronic periventricular white matter change. Josué Smith MD Liver Ultrasound 11/19/17 0000 Signed Impressions: Service Date/Time: Sunday, November 19, 2017 16:40 - CONCLUSION: 1. Thick-walled gallbladder containing gallstone. If there is clinical concern for acute cholecystitis a hepatobiliary scan may be helpful to confirm cystic duct obstruction. 2. Hepatomegaly. 3. 12 mm calcified nonobstructing right renal calculus. Jurgen Armstrong MD Physical Exam HEENT: PERRL; normocephalic; atraumatic; no jaundice. CHEST: CTA CARDIAC: Regular rate and rhythm with no murmur gallop or rubs. ABDOMEN: Soft, nondistended, mild RUQ TTP; no hepatosplenomegaly; bowel sounds are present in all four quadrants. EXTREMITIES: No clubbing, cyanosis, or edema. SKIN: Normal; no rash; no jaundice. VICE PRINCIPAL: alert Assessment and Plan Plan ASSESSMENT - elevated LFTs - unclear etiology, could be gallbladder origin vs DILI vs other cause. US showed thick walled gallbladder with a gallstone. has been taking Aleve. - nausea/vomiting, intermittent diarrhea, decreased appetite, weight loss - could be r/t dysfunctioning gallbladder. last colonoscopy "couple years ago" and diverticulosis found 11/21/17 PT doing well, wants more food. LFTs trending down, WBC WNL. hep panel neg. GS now following, attempting non op mgmt with poss outpt cholecystectomy d/w pt at [facility], she and neice had many question, were answered satisfactorily. PLAN - further mgmt per GS - await rest of liver w/u - supportive care - GI will sign off, please reconsult if needed pt seen by myself and Dr Corbett and this note is written on his behalf Bee Israel Nov 21, 2017 14:09
[2017-11-21] MEDS: ACETAMINOPHEN/HYDROcodone 325 MG/10 MG TAB PO PRN (14:47)
[2017-11-21] MEDS: metroNIDAZOLE 250 MG TAB PO SCH ×2 (15:15→21:20)
[2017-11-21 15:43] VITALS: BP 100/59; PULSE 74; RESP 17; TEMP 96.9; O2SAT 97
[2017-11-21 20:00] VITALS: BP 104/51; PULSE 64; RESP 16; TEMP 97.1; O2SAT 98
[2017-11-21] MEDS: DONEPEZIL HCL 5 MG TAB PO SCH (21:20)
[2017-11-21] MEDS: TEMAZEPAM 15 MG CAP PO PRN (21:20)
[2017-11-22] VITALS: BP 112/55; PULSE 67; RESP 16; TEMP 97.5; O2SAT 95
[2017-11-22 05:48] LABS: BASOPHIL % 0.7 % (0.0-2.0); EOSINOPHIL # 0.7 TH/MM3 (0-0.4); EOSINOPHIL % 12.2 % (0.0-4.0); HEMATOCRIT 32.2 % (35.0-46.0); HEMOGLOBIN 10.9 GM/DL (11.6-15.3); LYMPH % 22.7 % (9.0-44.0); LYMPHOCYTE # 1.3 TH/MM3 (1.0-4.8); MEAN CELL VOLUME 93.5 FL (80.0-100.0); MEAN CORPUSCULAR HEMOGLOBIN 31.6 PG (27.0-34.0); MEAN CORPUSCULAR HGB CONC 33.7 % (32.0-36.0); MEAN PLATELET VOLUME 8.5 FL (7.0-11.0); MONO % 10.8 % (0.0-8.0); MONOCYTE # 0.6 TH/MM3 (0-0.9); NEUT % 53.6 % (16.0-70.0); PLATELET COUNT 310 TH/MM3 (150-450); RED BLOOD COUNT 3.44 MIL/MM3 (4.00-5.30); RED CELL DISTRIBUTION WIDTH 13.1 % (11.6-17.2); WHITE BLOOD COUNT 5.7 TH/MM3 (4.0-11.0)
[2017-11-22 06:15] LABS: ALBUMIN 2.9 GM/DL (3.4-5.0); ALT (GPT) 111 U/L (10-53); AST (GOT) 56 U/L (15-37); BICARBONATE 25.9 MEQ/L (21.0-32.0); BLOOD UREA NITROGEN 6 MG/DL (7-18); CALCIUM 8.1 MG/DL (8.5-10.1); CHLORIDE 108 MEQ/L (98-107); CREATININE 0.65 MG/DL (0.50-1.00); GLOMERULAR FILTRATION RATE 89 ML/MIN (>89); GLUCOSE,RANDOM 93 MG/DL (74-106); SODIUM (NA) 141 MEQ/L (136-145)
[2017-11-22 06:16] LABS: ALKALINE PHOSPHATASE 293 U/L (45-117); TOTAL BILIRUBIN ADULT 0.5 MG/DL (0.2-1.0); TOTAL PROTEIN 5.9 GM/DL (6.4-8.2)
[2017-11-22] MEDS: metroNIDAZOLE 250 MG TAB PO SCH (06:35)
[2017-11-22 08:00] VITALS: BP 97/71; PULSE 72; RESP 18; TEMP 96.9; O2SAT 96
--- NOTE | 2017-11-22 08:37 | HHI.DS ---
Discharge Summary Admission Date Nov 19, 2017 at 19:34 Discharge Date: Nov 22, 2017 Admitting Diagnosis Acute cholecystitis, elevated LFTs (1) Acute cholecystitis Diagnosis: Principal ICD Codes: K81.0 - Acute cholecystitis Status: Acute (2) Elevated liver enzymes Diagnosis: Principal ICD Codes: R74.8 - Abnormal levels of other serum enzymes Status: Acute (3) Head ache Diagnosis: Principal ICD Codes: R51 - Headache Status: Chronic Consultants Dr. Peoples, general surgery Dr. Skinner, gastroenterology Procedures none Brief History 72-year-old female came to the emergency room sent by her primary care to get a CAT scan for her headache and dizziness that has been going on for past 2 weeks. Patient says this all started after she had her left hip replaced. No history of syncopal episode or fall. Patient has been taking meclizine which is not helping. There was workup initiated while she was in triage and in the waiting room. She does not appear to be in any significant discomfort. Vital signs are stable Patient has had mid back pain and radiation to neck and head which was reason she came to hospital and on work up had significant elevation LFT's and ultrasound consistent with cholecystitis and admit for GI evaluation . Except for mid back pain no nausea vomit or abdominal pain. CBC/BMP: 11/22/17 0432 11/22/17 0432 Significant Findings Laboratory Tests Test 11/19/17 12:45 11/19/17 13:10 11/20/17 06:39 11/21/17 07:00 Urine Occult Blood SMALL (NEG) Urine Leukocyte Esterase SMALL (NEG) Urine RBC 4 /hpf (0-3) Urine WBC 14 /hpf (0-5) Urine Mucus MANY /lpf (OCC) Red Blood Count 3.78 MIL/MM3 (4.00-5.30) 3.50 MIL/MM3 (4.00-5.30) Eosinophils (%) (Auto) 24.6 % (0.0-4.0) 29.9 % (0.0-4.0) Eosinophils # (Auto) 1.7 TH/MM3 (0-0.4) 2.0 TH/MM3 (0-0.4) Prothrombin Time 12.1 SEC (9.8-11.6) Albumin 3.3 GM/DL (3.4-5.0) 2.9 GM/DL (3.4-5.0) 2.9 GM/DL (3.4-5.0) Calcium Level 8.3 MG/DL (8.5-10.1) 8.4 MG/DL (8.5-10.1) Alkaline Phosphatase 455 U/L (45-117) 385 U/L (45-117) 338 U/L (45-117) Aspartate Amino Transf (AST/SGOT) 409 U/L (15-37) 196 U/L (15-37) 90 U/L (15-37) Alanine Aminotransferase (ALT/SGPT) 324 U/L (10-53) 228 U/L (10-53) 151 U/L (10-53) Total Bilirubin 1.3 MG/DL (0.2-1.0) Estimat Glomerular Filtration Rate 68 ML/MIN (>89) Troponin I LESS THAN 0.02 NG/ML Hemoglobin 11.1 GM/DL (11.6-15.3) Hematocrit 32.9 % (35.0-46.0) Monocytes (%) (Auto) 8.3 % (0.0-8.0) Random Glucose 72 MG/DL (74-106) Total Protein 6.2 GM/DL (6.4-8.2) 6.2 GM/DL (6.4-8.2) Total Iron Binding Capacity 225 MCG/DL (250-450) Test 11/22/17 04:32 Red Blood Count 3.44 MIL/MM3 (4.00-5.30) Hemoglobin 10.9 GM/DL (11.6-15.3) Hematocrit 32.2 % (35.0-46.0) Monocytes (%) (Auto) 10.8 % (0.0-8.0) Eosinophils (%) (Auto) 12.2 % (0.0-4.0) Eosinophils # (Auto) 0.7 TH/MM3 (0-0.4) Blood Urea Nitrogen 6 MG/DL (7-18) Total Protein 5.9 GM/DL (6.4-8.2) Albumin 2.9 GM/DL (3.4-5.0) Calcium Level 8.1 MG/DL (8.5-10.1) Alkaline Phosphatase 293 U/L (45-117) Aspartate Amino Transf (AST/SGOT) 56 U/L (15-37) Alanine Aminotransferase (ALT/SGPT) 111 U/L (10-53) Chloride Level 108 MEQ/L (98-107) Imaging Last Impressions Hepatobiliary Scan Nuclear Medicine 11/20/17 1207 Signed Impressions: Service Date/Time: Monday, November 20, 2017 10:11 - CONCLUSION: Nonvisualization of the gallbladder out to 90 minutes. This is consistent with cholecystitis which could be acute or chronic. Delayed imaging will be performed in this report will be addended. Meliton Ruiz MD ADDENDUM: A 4 hour delayed exam was obtained. This demonstrates a small amount of activity in the gallbladder fossa region. This likely indicates more chronic cholecystitis. Meliton Ruiz MD Head CT 11/19/17 1143 Signed Impressions: Service Date/Time: Sunday, November 19, 2017 11:59 - CONCLUSION: 1. Stable noncontrast head CT. No acute intracranial abnormality is identified. 2. Stable chronic changes include mild generalized atrophy and chronic periventricular white matter change. Josué Smith MD Liver Ultrasound 11/19/17 0000 Signed Impressions: Service Date/Time: Sunday, November 19, 2017 16:40 - CONCLUSION: 1. Thick-walled gallbladder containing gallstone. If there is clinical concern for acute cholecystitis a hepatobiliary scan may be helpful to confirm cystic duct obstruction. 2. Hepatomegaly. 3. 12 mm calcified nonobstructing right renal calculus. Jurgen Armstrong MD PE at Discharge GENERAL: This is a well-nourished, well-developed patient, confused but in no apparent distress. CARDIOVASCULAR: Regular rate and rhythm RESPIRATORY: Clear to auscultation. Breath sounds equal bilaterally. GASTROINTESTINAL: Abdomen soft, non-tender, nondistended. Normal active bowel sounds MUSCULOSKELETAL: Extremities without clubbing, cyanosis, or edema. NEURO: Alert with confusion at times. Moves all ext x4 Hospital Course Acute cholecystitis - GB US (11/19) --> thickened GB wall - LFTs improving T. Bili (11/19) 1.3, 0.9 (11/20), 0.7 (11/21), 0.5 (11/22) Ast 409 (11/19), 196 (11/20), 90 (11/21), 56 (11/22) Alt 324 (11/19), 228 (11/20), 151 (11/21), 111 (11/22) Alk Phos 445 (11/19), 385 (11/20), 338 (11/21), 293 (11/22) - no fever, no leukocytosis - HIDA --> nonvisualization of gallbladder at 90 mins, consistent with cholecystitis acute of chronic. A 4 hour delay exam was obtained which demonstrated a small amount of activity in the gallbladder fossa region, likely indicates more chronic cholecystitis. - General Surgery consultation appreciated. Per general surgery: She probably has acute and chronic cholecystitis and due to duration of her symptoms I would like to try to treat her with antibiotics only for now. Start low fat diet. - liver w/u per GI --> Thick- walled gallbladder containing gallstone. 12 mm calcified nonobstructing right renal calculus. - Levaquin (11/19 - present) - Flagyl (11/21 - present) - IVFs initially then DC'd 11/21 - DVT prophylaxis - supportive care - obtain PT evaluation - Dr. Perea discussed the case with Dr. Peoples agrees with medical management and would like for patient to follow up as outpatient after DC Addendum: Patient reports that she was is still taking Xarelto, unsure of why. Discussed the case with orthopedic surgery PA Meliton Lawrence who reports no need for Xarelto at this time, No report of DVT that he is aware of. Discussed the case with Marium CHARLTON at [facility] ([facility] where patient was DC to after hip surgery) no report of DVT. Discussed the case with RN at Dr. Batres's office ( patient's PCP) no report of DVT no documentation of patient taking Xarelto. reviewed outpatient [facility] records no report of DVT. Will DC Xarelto as hip replaced surgery was 10/08/17 and Xarelto was ordered for 14 days total post-op. Elevated liver enzymes as above Headache- resolved - CT brain (11/19) --> No acute findings, mild generalized atrophy - prn norco Pt Condition on Discharge: Stable Discharge Disposition: Disch w/ Home Health Serv Discharge Instructions DIET: Follow Instructions for: Low Fat Diet Activities you can perform: Regular-No Restrictions Follow up Referrals: Orthopedics with Dr. Blakely PCP Follow-up - [address] Batres Surgical - [address] Peoples New Medications: Levofloxacin (Levaquin) 500 Mg Tablet 500 MG PO DAILY for antibiotic for 6 Days, #6 EACH 0 Refills Metronidazole (Flagyl) 250 Mg Tab 250 MG PO Q8HR for antibiotics for 6 Days, TAB 0 Refills Continued Medications: Alprazolam (Alprazolam) 1 Mg Tab 1 MG PO BID for ANXIETY Aspirin (Aspirin) 325 Mg Tab 325 MG PO DAILY for blood clot prevention, #30 TAB 0 Refills Bupropion HCl ER 24 HR (Bupropion HCl ER 24 HR) 150 Mg Tab 150 MG PO DAILY for Control Depression, TAB 0 Refills Cholecalciferol (D3 Maximum Strength) 5,000 Unit Cap 2000 UNITS PO DAILY for Nutritional Supplement, #30 CAP 0 Refills Citalopram (Citalopram) 40 Mg Tab 40 MG PO DAILY for Control Depression, #30 TAB 0 Refills Donepezil (Donepezil) 5 Mg Tab 5 MG PO HS for Dementia, #30 TAB 0 Refills Hydrocodone-Acetaminophen (Hydrocodone-Acetaminophen) 10-325 mg Tab 1 TAB PO Q4H PRN for PAIN, #60 TAB 0 Refills Meclizine (Meclizine) 25 Mg Tab 25 MG PO TID PRN for VERTIGO, #28 TAB 0 Refills Discontinued Medications: Atorvastatin (Atorvastatin) 40 Mg Tab 40 MG PO HS for Cholesterol Management, #30 TAB 0 Refills Doxylamine Succinate (Unisom Sleep Aid) 25 Mg Tablet 1 TAB PO HS PRN for SLEEP/PAIN Rivaroxaban (Xarelto) 10 Mg Tab 10 MG PO DAILY for Blood Clot Prevention for 14 Days, #14 TAB 0 Refills Additional Information Patient examined. Assessment and plan formulated with Zohra Townsend PA-C. I agree with the above. Pt tolerating PO intake. Pt to complete course of PO antibiotics. F/u with PCP in 1 week f/u with General Surgery, Dr. Peoples, in 2-3 weeks. Zohra Townsend Nov 22, 2017 08:37 Cisco Perea DO Nov 27, 2017 10:55
[2017-11-22] MEDS: CITALOPRAM HYDROBROMIDE 40 MG TAB PO SCH (08:48)
[2017-11-22] MEDS: LEVOFLOXACIN 500 MG TAB PO SCH (08:48)
[2017-11-22] MEDS: ALPRAZolam 1 MG TAB PO SCH (08:48)
[2017-11-22] MEDS: ASPIRIN 325 MG TAB PO SCH (08:49)
[2017-11-22] MEDS: buPROPion HCL 150 MG SUSTAINED RELEASE TAB PO SCH (08:49)
[2017-11-22] MEDS: DOCUSATE SODIUM 50 MG/SENNA 8.6 MG TAB PO SCH (08:50)
[2017-11-22] MEDS: SODIUM CHLORIDE 0.9% FLUSH 10 ML FLUSH IV FLUSH SCH (08:51)
--- NOTE | 2017-11-22 10:14 | HHI.PR ---
Subjective Subjective Notes Tolerating some solid food. Denies abdominal pain. Objective Vitals/I&O Vital Signs Date Time Temp Pulse Resp B/P (MAP) Pulse Ox O2 Delivery O2 Flow Rate FiO2 11/22/17 08:00 96.9 72 18 97/71 (80) 96 11/19/17 19:27 Room Air Labs Laboratory Tests Test 11/22/17 04:32 White Blood Count 5.7 Red Blood Count 3.44 Hemoglobin 10.9 Hematocrit 32.2 Mean Corpuscular Volume 93.5 Mean Corpuscular Hemoglobin 31.6 Mean Corpuscular Hemoglobin Concent 33.7 Red Cell Distribution Width 13.1 Platelet Count 310 Mean Platelet Volume 8.5 Neutrophils (%) (Auto) 53.6 Lymphocytes (%) (Auto) 22.7 Monocytes (%) (Auto) 10.8 Eosinophils (%) (Auto) 12.2 Basophils (%) (Auto) 0.7 Neutrophils # (Auto) 3.0 Lymphocytes # (Auto) 1.3 Monocytes # (Auto) 0.6 Eosinophils # (Auto) 0.7 Basophils # (Auto) 0.0 CBC Comment DIFF FINAL Differential Comment Blood Urea Nitrogen 6 Creatinine 0.65 Random Glucose 93 Total Protein 5.9 Albumin 2.9 Calcium Level 8.1 Alkaline Phosphatase 293 Aspartate Amino Transf (AST/SGOT) 56 Alanine Aminotransferase (ALT/SGPT) 111 Total Bilirubin 0.5 Sodium Level 141 Potassium Level 3.6 Chloride Level 108 Carbon Dioxide Level 25.9 Anion Gap 7 Estimat Glomerular Filtration Rate 89 Date/Time Source Procedure Growth Status 11/19/17 12:45 Urine Clean Catch Urine Culture - Final 10-50,000 CFU/ML MIXED GRAM POSITIVE ... Complete Radiology Last Impressions Head CT 11/19/17 1143 Signed Impressions: Service Date/Time: Sunday, November 19, 2017 11:59 - CONCLUSION: 1. Stable noncontrast head CT. No acute intracranial abnormality is identified. 2. Stable chronic changes include mild generalized atrophy and chronic periventricular white matter change. Josué Smith MD Liver Ultrasound 11/19/17 0000 Signed Impressions: Service Date/Time: Sunday, November 19, 2017 16:40 - CONCLUSION: 1. Thick-walled gallbladder containing gallstone. If there is clinical concern for acute cholecystitis a hepatobiliary scan may be helpful to confirm cystic duct obstruction. 2. Hepatomegaly. 3. 12 mm calcified nonobstructing right renal calculus. Jurgen Armstrong MD Narrative Exam NAD Abd: soft, mild RUQ ttp A/P Assessment and Plan 72 yo F with cholecystitis likely for a couple of weeks based on her symptoms. She is improving. LFTs better. Pain a little better. Tolerating diet. I am ok with d/c home with oral antibiotics. F/u with me in 2 weeks. Andrzej Peoples MD Nov 22, 2017 10:14
[2017-11-22 12:00] VITALS: BP 106/66; PULSE 59; RESP 18; TEMP 97.1; O2SAT 95
[2017-11-22] MEDS: ACETAMINOPHEN/HYDROcodone 325 MG/10 MG TAB PO PRN (12:12)
[2017-11-22] MEDS ORDERED: HYDR-3583 PO (12:36)
[2017-11-22 13:10] LABS: ANA SCREEN POS (NEG)
[2017-11-22 13:40] LABS: SMOOTH MUSCLE TOTAL AUTOABS Negative (Negative)
[2017-11-22 18:52] LABS: ALPHA-1-ANTITRYPSIN 193 mg/dL (100 - 190)
--- NOTE | 2017-11-22 19:56 | EKG ---
Date Performed: 11/22/2017 Time Performed: 07:00:08 PTAGE: 72 years EKG: Sinus rhythm WITH OCCASIONAL SUPRAVENTRICULAR PREMATURE COMPLEXES MARKED LEFT AXIS DEVIATION LOW QRS VOLTAGE IN E XTREMITY LEADS POOR R WAVE PROGRESSION Since the prior tracing, there has been no significant change ABNORMAL ECG PREVIOUS TRACING : 11/21/2017 11.20 DOCTOR: Tirso Martins Interpretating Date/Time 11/22/2017 19:55:32
--- NOTE | 2017-11-22 19:56 | EKG ---
Date Performed: 11/21/2017 Time Performed: 11:20:35 PTAGE: 72 years EKG: SINUS BRADYCARDIA MARKED LEFT AXIS DEVIATION LOW QRS VOLTAGE IN PRECORDIAL LEADS PATTERN CO NSISTENT WITH PULMONARY DISEASE MARKED JUNCTIONAL ST DEPRESSION Compared to previous tracing, R wave progression improved but otherwise no significant change ABNORMAL ECG PREVIOUS TRACING : 11/19/2017 13.15 DOCTOR: Tirso Martins Interpretating Date/Time 11/22/2017 19:55:59
[2017-11-24 03:50] LABS: MITOCHONDRIAL ABS LESS THAN 20.0 U (<=20.0)
[2017-11-24 19:51] LABS: CERULOPLASMIN 33 mg/dL (18-53)
[2017-11-25 17:11] LABS: ANA PATTERN SPECKLED
== END 2017-11-22 14:37 | disposition home or self-care (01) | DRG 446 ==
LOC: NEPC 11:33 → NEDA 19:34 → NEPGCP 21:38 → N06A 11-21 14:27
PROVIDERS: ADMIT Hospitalist; ATTEND Hospitalist
DX: K80.12 Calculus of gallbladder with acute and chronic cholecystitis without obstruction (principal); F03.90 Unspecified dementia, unspecified severity, without behavioral disturbance, psychotic disturbance, mood disturbance, and anxiety; F32.9 Major depressive disorder, single episode, unspecified; F41.9 Anxiety disorder, unspecified; R42 Dizziness and giddiness; Z86.73 Personal history of transient ischemic attack (TIA), and cerebral infarction without residual deficits; M16.12 Unilateral primary osteoarthritis, left hip; M25.552 Pain in left hip; E78.5 Hyperlipidemia, unspecified; R51 Headache; W06.XXXA Fall from bed, initial encounter; I10 Essential (primary) hypertension; Z96.642 Presence of left artificial hip joint; N20.0 Calculus of kidney; R74.8 Abnormal levels of other serum enzymes; M54.6 Pain in thoracic spine
CPT/HCPCS: 70450; 76705; 78226; 80053; 80074; 80076; 81001; 82103; 82105; 82390; 82550; 82728; 83520; 83540; 83550; 83735; 84484; 85025; 85610; 85730; 86038; 86039; 86255; 87086; 93005; 99285; A9537; J1956

== ENCOUNTER 2017-12-19 09:14 | Inpatient (IN) | payer MEDICARE ==
[~2017-12-19] VITALS: Ht 167.6 cm; Wt 68.0 kg
[~2017-12-19 09:14] MED LIST changes: -ATOR40TA16 PO; +LEVA500T33 PO; +METR250 PO; -ONDA8TAB7 PO; -UNIS25TA3 PO; -WALKER/ADULT/FO1 MIS; -XARE10TA PO
[2017-12-19 09:40] VITALS: BP 154/79; PULSE 58; RESP 20; TEMP 97.6; O2SAT 99
--- NOTE | 2017-12-19 10:03 | PD ---
HPI Chief Complaint: GI Complaint Time Seen by Provider: 10:00 Travel History International Travel<30 days: No Contact w/Intl Traveler<30days: No Traveled to known affect area: No History of Present Illness HPI 72-year-old female came to the emergency room with extremely vague and confusing history. Patient seems very anxious and says everything hurts including her neck and her middle and lower back. However these pains have been there for more than a few weeks. Patient was admitted in the hospital one month ago and diagnosed with acute on chronic cholecystitis. Patient says that she's having hard time eating because she is been asked to do diet restriction. Vital signs are stable. Because of all her concerns she called Dr. Peoples's office who is the surgeon who saw her initially last month and patient was admitted. She was told that he was not in the office and patient decided to go to [facility] and they sent her to the emergency room. Patient is an extremely poor historian and having very hard time explaining all this. Vital signs otherwise stable. [facility] Past Medical History Narrative Medical List of her past medical, surgical, social and family history is reviewed from the nursing note. Hx Anticoagulant Therapy: No Asthma: No Anxiety: Yes Depression: Yes Cancer: No Cardiovascular Problems: Yes (LEG VEINS STRIPPED YEARS AGO) High Cholesterol: Yes COPD: No Cerebrovascular Accident: Yes (TIA 2014) Dementia: Yes Diabetes: No Diminished Hearing: No Endocrine: No Gastrointestinal Disorders: No Genitourinary: No Hepatitis: No Hiatal Hernia: No Immune Disorder: No Musculoskeletal: Yes (OA, LEFT HIP PAIN) Neurologic: Yes (TIA, MEMORY ISSUE AT TIME) Psychiatric: Yes (ANXIETY, DEPRESSION ) Reproductive: No Respiratory: No Thyroid Disease: No Triglycerides - High: Yes Tetanus Vaccination: Unknown Influenza Vaccination: No Menopausal: Yes : 4 Para: 4 Past Surgical History Abdominal Surgery: No AICD: No Body Medical Devices: NONE Cardiac Surgery: No Ear Surgery: No Endocrine Surgery: No Eye Surgery: No Genitourinary Surgery: No Gynecologic Surgery: No Joint Replacement: No Oral Surgery: No Pacemaker: No Thoracic Surgery: No Tonsillectomy: Yes Other Surgery: Yes (Leg veins stripped) Social History Alcohol Use: No Tobacco Use: No Substance Use: No Allergies-Medications (Allergen,Severity, Reaction): Coded Allergies: penicillin G (Verified Allergy, Severe, Swelling, hives, 12/19/17) Comments List of her allergies reviewed from the nursing note. Reported Meds & Prescriptions Reported Meds & Active Scripts Active Hydrocodone-Acetaminophen 10-325 mg Tab 1 Tab PO Q4H PRN Aspirin 325 Mg Tab 325 Mg PO DAILY Meclizine (Meclizine HCl) 25 Mg Tab 25 Mg PO TID PRN Reported Donepezil 5 Mg Tab 5 Mg PO HS Alprazolam 1 Mg Tab 1 Mg PO BID Narrative Medication List of her home medications reviewed from the nursing note. Review of Systems Except as stated in HPI: all other systems reviewed are Neg Gastrointestinal: Positive: Abdominal Pain Physical Exam Narrative GENERAL: Awake, alert, anxious, elderly SKIN: Focused skin assessment warm/dry. HEAD: Atraumatic. Normocephalic. EYES: Pupils equal and round. No scleral icterus. No injection or drainage. ENT: No nasal bleeding or discharge. Mucous membranes pink and moist. NECK: Trachea midline. No JVD. CARDIOVASCULAR: Regular rate and rhythm. No murmur appreciated. RESPIRATORY: No accessory muscle use. Clear to auscultation. Breath sounds equal bilaterally. GASTROINTESTINAL: Abdomen soft, non-tender, nondistended. Hepatic and splenic margins not palpable. MUSCULOSKELETAL: No obvious deformities. No clubbing. No cyanosis. No edema. NEUROLOGICAL: Awake and alert. No obvious cranial nerve deficits. Motor grossly within normal limits. Normal speech. PSYCHIATRIC: Appropriate mood and affect; insight and judgment normal. Data Data Last Documented VS Vital Signs Date Time Temp Pulse Resp B/P (MAP) Pulse Ox O2 Delivery O2 Flow Rate FiO2 12/19/17 09:40 97.6 58 20 154/79 (104) 99 Orders Orders Complete Blood Count With Diff (12/19/17 10:08) Comprehensive Metabolic Panel (12/19/17 10:08) Lipase (12/19/17 10:08) Iv Access Insert/Monitor (12/19/17 10:08) Ecg Monitoring (12/19/17 10:08) Oximetry (12/19/17 10:08) Sodium Chloride 0.9% Flush (Ns Flush) (12/19/17 10:15) Sodium Chlorid 0.9% 500 Ml Inj (Ns 500 M (12/19/17 10:15) Admit Order (Ed Use Only) (3/1/18 13:25) Labs Laboratory Tests Test 12/19/17 10:20 White Blood Count 5.3 TH/MM3 Red Blood Count 3.89 MIL/MM3 Hemoglobin 12.2 GM/DL Hematocrit 35.9 % Mean Corpuscular Volume 92.3 FL Mean Corpuscular Hemoglobin 31.3 PG Mean Corpuscular Hemoglobin Concent 33.9 % Red Cell Distribution Width 14.1 % Platelet Count 278 TH/MM3 Mean Platelet Volume 8.6 FL Neutrophils (%) (Auto) 74.8 % Lymphocytes (%) (Auto) 16.6 % Monocytes (%) (Auto) 6.2 % Eosinophils (%) (Auto) 1.9 % Basophils (%) (Auto) 0.5 % Neutrophils # (Auto) 4.0 TH/MM3 Lymphocytes # (Auto) 0.9 TH/MM3 Monocytes # (Auto) 0.3 TH/MM3 Eosinophils # (Auto) 0.1 TH/MM3 Basophils # (Auto) 0.0 TH/MM3 CBC Comment DIFF FINAL Differential Comment Blood Urea Nitrogen 8 MG/DL Creatinine 0.76 MG/DL Random Glucose 94 MG/DL Total Protein 6.6 GM/DL Albumin 3.5 GM/DL Calcium Level 8.9 MG/DL Alkaline Phosphatase 85 U/L Aspartate Amino Transf (AST/SGOT) 17 U/L Alanine Aminotransferase (ALT/SGPT) 12 U/L Total Bilirubin 0.5 MG/DL Sodium Level 142 MEQ/L Potassium Level 3.8 MEQ/L Chloride Level 108 MEQ/L Carbon Dioxide Level 24.0 MEQ/L Anion Gap 10 MEQ/L Estimat Glomerular Filtration Rate 74 ML/MIN Lipase 74 U/L MDM Medical Decision Making Medical Screen Exam Complete: Yes Emergency Medical Condition: Yes Medical Record Reviewed: Yes Differential Diagnosis Acute cholecystitis, anxiety, acute on chronic pain Narrative Course 11:55 AM her done and back and within acceptable limits. LFTs are within normal limit. I put a call out to Dr. Peoples to discuss this with him. Patient has an appointment with Dr. Peoples for the fifth of this month. 12:[address] Peoples saw the patient and I was told he plans to have the surgery tomorrow. Awaiting for the hospitalist to call back. Procedures EKG Prior to Arrival: No Physician Communication Physician Communication Dr. Peoples Diagnosis Primary Impression: Abdominal pain Qualified Codes: R10.11 - Right upper quadrant pain Additional Impression: Cholecystitis Admitting Information Admitting Physician Requests: Admit Scripts Hydrocodone/Acetaminophen (Hydrocodone-Acetamin 5-325 mg) 5 Mg-325 Mg Tablet 1-2 TAB PO Q6H Y for PAIN, #20 TAB Prov: Andrzej ePoples MD 12/20/17 Praneeth Huertas MD Dec 19, 2017 10:03
[2017-12-19] MEDS ORDERED: SODIUM CHLORID 0.9% 500 ML INJ 500 ML IV ONE (10:15)
[2017-12-19] MEDS ORDERED: SODIUM CHLORIDE 0.9% FLUSH 10 ML FLUSH IV FLUSH PRN ×3 (10:15→13:30)
[2017-12-19 11:18] LABS: BASOPHIL % 0.5 % (0.0-2.0); EOSINOPHIL # 0.1 TH/MM3 (0-0.4); EOSINOPHIL % 1.9 % (0.0-4.0); HEMATOCRIT 35.9 % (35.0-46.0); HEMOGLOBIN 12.2 GM/DL (11.6-15.3); LYMPH % 16.6 % (9.0-44.0); LYMPHOCYTE # 0.9 TH/MM3 (1.0-4.8); MEAN CELL VOLUME 92.3 FL (80.0-100.0); MEAN CORPUSCULAR HEMOGLOBIN 31.3 PG (27.0-34.0); MEAN CORPUSCULAR HGB CONC 33.9 % (32.0-36.0); MEAN PLATELET VOLUME 8.6 FL (7.0-11.0); MONO % 6.2 % (0.0-8.0); MONOCYTE # 0.3 TH/MM3 (0-0.9); NEUT % 74.8 % (16.0-70.0); PLATELET COUNT 278 TH/MM3 (150-450); RED BLOOD COUNT 3.89 MIL/MM3 (4.00-5.30); RED CELL DISTRIBUTION WIDTH 14.1 % (11.6-17.2); WHITE BLOOD COUNT 5.3 TH/MM3 (4.0-11.0)
[2017-12-19 11:40] LABS: ALBUMIN 3.5 GM/DL (3.4-5.0); AST (GOT) 17 U/L (15-37); BLOOD UREA NITROGEN 8 MG/DL (7-18); CALCIUM 8.9 MG/DL (8.5-10.1); CHLORIDE 108 MEQ/L (98-107); CREATININE 0.76 MG/DL (0.50-1.00); GLOMERULAR FILTRATION RATE 74 ML/MIN (>89); GLUCOSE,RANDOM 94 MG/DL (74-106); SODIUM (NA) 142 MEQ/L (136-145)
[2017-12-19 11:41] LABS: ALT (GPT) 12 U/L (10-53)
[2017-12-19 11:43] LABS: ALKALINE PHOSPHATASE 85 U/L (45-117); TOTAL BILIRUBIN ADULT 0.5 MG/DL (0.2-1.0); TOTAL PROTEIN 6.6 GM/DL (6.4-8.2)
--- NOTE | 2017-12-19 13:28 | HHI.HP ---
HPI Service General Surgery Primary Care Physician Timo Batres MD Admission Diagnosis abdominal pain, cholecystitis Chief Complaint: abdominal pain History of Present Illness 72 yo F known to me from previous hospitalization and from outpatient clinic with history of cholecystitis. She was hospitalized in early November for acute cholecystitis. U/s at that time showed thick walled gallbladder with gallstone. At that time she had elevation of her LFTs. I saw her one week ago in follow up. Yesterday she had ultrasound which showed gallstones with no gallbladder wall thickening. Today she apparently attempted to call the office. She ended up going to a healthcare work force wellness. She was referred to the emergency department. She has normal labs here. She relates to me that after the ultrasound yesterday she developed severe right sided abdominal pain and inability to keep food down. She describes the pain in the right mid abdomen. It is the same pain as she had had previously. At this point, the pain is somewhat improved. Review of Systems Constitutional: DENIES: Fever, Chills Eyes: DENIES: Eye inflammation, Eye pain Ears, nose, mouth, throat: DENIES: Oral lesions, Throat pain Respiratory: COMPLAINS OF: Cough, Shortness of breath (associated with pain last night) Cardiovascular: DENIES: Chest pain, Palpitations Gastrointestinal: COMPLAINS OF: Abdominal pain, Nausea Integumentary: DENIES: Pruritus, Rash Neurologic: DENIES: Seizures, Tremor Past Family Social History Past Medical History Dementia Depression Past Surgical History Total left hip Reported Medications Reported Meds & Active Scripts Active Hydrocodone-Acetaminophen 10-325 mg Tab 1 Tab PO Q4H PRN Aspirin 325 Mg Tab 325 Mg PO DAILY Meclizine (Meclizine HCl) 25 Mg Tab 25 Mg PO TID PRN Reported Donepezil 5 Mg Tab 5 Mg PO HS Alprazolam 1 Mg Tab 1 Mg PO BID Allergies: Coded Allergies: penicillin G (Verified Allergy, Severe, Swelling, hives, 12/19/17) Active Ordered Medications Current Medications Medications (Trade) Dose Ordered Sig/Kevin Route Start Time Stop Time Status Last Admin (NS Flush) 2 ml UNSCH PRN IV FLUSH 12/19/17 10:15 Family History Noncontributory Social History No ETOH, tobacco, or drug abuse. Physical Exam Vital Signs Vital Signs Date Time Temp Pulse Resp B/P (MAP) Pulse Ox O2 Delivery O2 Flow Rate FiO2 12/19/17 09:40 97.6 58 20 154/79 (104) 99 Physical Exam GENERAL: Awake and alert. No acute distress. Cooperative. HEAD: Normocephalic. Atraumatic. EYES: Pupils equal round and reactive to light bilaterally. No scleral icterus. ENT: Moist oral mucosa. NECK: Trachea midline. CHEST: Lungs clear to auscultation bilaterally with no wheezing or rhonchi. No respiratory distress. CARDIOVASCULAR: Regular rate and rhythm. ABDOMEN: [] EXTREMITIES: No cyanosis or edema. SKIN: Warm, dry, nonjaundiced. Laboratory Laboratory Tests Test 12/19/17 10:20 White Blood Count 5.3 Red Blood Count 3.89 Hemoglobin 12.2 Hematocrit 35.9 Mean Corpuscular Volume 92.3 Mean Corpuscular Hemoglobin 31.3 Mean Corpuscular Hemoglobin Concent 33.9 Red Cell Distribution Width 14.1 Platelet Count 278 Mean Platelet Volume 8.6 Neutrophils (%) (Auto) 74.8 Lymphocytes (%) (Auto) 16.6 Monocytes (%) (Auto) 6.2 Eosinophils (%) (Auto) 1.9 Basophils (%) (Auto) 0.5 Neutrophils # (Auto) 4.0 Lymphocytes # (Auto) 0.9 Monocytes # (Auto) 0.3 Eosinophils # (Auto) 0.1 Basophils # (Auto) 0.0 CBC Comment DIFF FINAL Differential Comment Blood Urea Nitrogen 8 Creatinine 0.76 Random Glucose 94 Total Protein 6.6 Albumin 3.5 Calcium Level 8.9 Alkaline Phosphatase 85 Aspartate Amino Transf (AST/SGOT) 17 Alanine Aminotransferase (ALT/SGPT) 12 Total Bilirubin 0.5 Sodium Level 142 Potassium Level 3.8 Chloride Level 108 Carbon Dioxide Level 24.0 Anion Gap 10 Estimat Glomerular Filtration Rate 74 Lipase 74 Result Diagram: 12/19/17 1020 12/19/17 1020 Caprini VTE Risk Assessment Caprini VTE Risk Assessment: No/Low Risk (score <= 1) Caprini Risk Assessment Model Point Value = 1 Point Value = 2 Point Value = 3 Point Value = 5 Age 41-60 Minor surgery BMI > 25 kg/m2 Swollen legs Varicose veins or History of unexplained or recurrent spontaneous Oral contraceptives or hormone replacement Sepsis (< 1 month) Serious lung disease, including pneumonia (< 1 month) Abnormal pulmonary function Acute myocardial infarction Congestive heart failure (< 1 month) History of inflammatory bowel disease Medical patient at bed rest Age 61-74 Arthroscopic surgery Major open surgery (> 45 min) Laparoscopic surgery (> 45 min) Malignancy Confined to bed (> 72 hours) Immobilizing plaster cast Central venous access Age >= 75 History of VTE Family history of VTE Factor V Leiden Prothrombin [id number] Lupus anticoagulant Anticardiolipin antibodies Elevated serum homocysteine Heparin-induced thrombocytopenia Other congenital or acquired thrombophilia Stroke (< 1 month) Elective arthroplasty Hip, pelvis, or leg fracture Acute spinal cord injury (< 1 month) Prophylaxis Regimen Total Risk Factor Score Risk Level Prophylaxis Regimen 0-1 Low Early ambulation 2 Moderate Order ONE of the following: *Sequential Compression Device (SCD) *Heparin 5000 units SQ BID 3-4 Higher Order ONE of the following medications: *Heparin 5000 units SQ TID *Enoxaparin/Lovenox 40 mg SQ daily (WT < 150 kg, CrCl > 30 mL/min) *Enoxaparin/Lovenox 30 mg SQ daily (WT < 150 kg, CrCl > 10-29 mL/min) *Enoxaparin/Lovenox 30 mg SQ BID (WT < 150 kg, CrCl > 30 mL/min) AND/OR *Sequential Compression Device (SCD) 5 or more Highest Order ONE of the following medications: *Heparin 5000 units SQ TID (Preferred with Epidurals) *Enoxaparin/Lovenox 40 mg SQ daily (WT < 150 kg, CrCl > 30 mL/min) *Enoxaparin/Lovenox 30 mg SQ daily (WT < 150 kg, CrCl > 10-29 mL/min) *Enoxaparin/Lovenox 30 mg SQ BID (WT < 150 kg, CrCl > 30 mL/min) AND *Sequential Compression Device (SCD) Assessment and Plan Assessment and Plan 72 yo F recent cholecystitis, with recurrent biliary colic. I do not think she is going to be able to tolerate another 2 or 3 weeks prior to surgery as I had originally planned. I recommend to proceed with an operation tomorrow. She will be placed in observation tonight I did start IV antibiotics. Proceed to OR tomorrow for laparoscopic cholecystectomy. I discussed the case in detail with the patient and her daughter including risks and benefits and possible need for open procedure. Andrzej Peoples MD Dec 19, 2017 13:28
[2017-12-19] MEDS ORDERED: ONDANSETRON HCL 4 MG/2 ML VIAL IV PUSH PRN (13:30)
[2017-12-19] MEDS ORDERED: ACETAMINOPHEN 325 MG TAB PO PRN ×2 (13:30)
[2017-12-19] MEDS ORDERED: NALOXONE HCL 0.4 MG/ML AMP IV PUSH PRN (13:30)
[2017-12-19] MEDS ORDERED: diphenhydrAMINE HCL 50 MG/ML VIAL IV PUSH PRN (13:30)
[2017-12-19] MEDS ORDERED: MAGNESIUM HYDROXIDE SUSP 30 ML CUP PO PRN (13:30)
--- NOTE | 2017-12-19 13:34 | HHI.HP ---
HPI Service [facility] Hospitalists Primary Care Physician Timo Batres MD Admission Diagnosis Travel History International Travel<30 Days: No Contact w/Intl Traveler <30 Da: No Traveled to Known Affected Are: No History of Present Illness 72-year-old female with a past medical history which includes dementia and depression. Patient had a recent admission from 11/19/17 to 11/22/17 for acute on chronic cholecystitis. Patient returns to the emergency room due to abdominal pain. Patient's history is limited by her dementia, she a vague and poor historian. Patient was seen by Dr. Peoples during her last admission and also saw Dr. Peoples about 1 week ago. Patient had an outpatient ultrasound yesterday which showed gallstones with no gallbladder wall thickening. Patient reports that after the ultrasound yesterday she developed severe right sided abdominal pain and inability to keep food down. She describes the pain in the right mid abdomen. She reports this pain is similar to the pain she had during her last admission. Per ER provider she has spoken to Dr. Peoples and he would like patient admitted for cholecystectomy tomorrow. Review of Systems ROS Limitations: Poor Historian Gastrointestinal: COMPLAINS OF: Abdominal pain, Nausea Past Family Social History Past Medical History dementia,depression Past Surgical History left hip surgery in september 2017,tonsil ,vein surgery years ago Reported Medications Hydrocodone-Acetaminophen 10-325 mg Tab 1 Tab PO Q4H PRN Aspirin 325 Mg Tab 325 Mg PO DAILY Meclizine (Meclizine HCl) 25 Mg Tab 25 Mg PO TID PRN Donepezil 5 Mg Tab 5 Mg PO HS Alprazolam 1 Mg Tab 1 Mg PO BID Allergies: Coded Allergies: penicillin G (Verified Allergy, Severe, Swelling, hives, 12/19/17) Physical Exam Vital Signs Vital Signs Date Time Temp Pulse Resp B/P (MAP) Pulse Ox O2 Delivery O2 Flow Rate FiO2 12/19/17 09:40 97.6 58 20 154/79 (104) 99 Physical Exam GENERAL: This is a well-nourished, well-developed patient, in no apparent distress. SKIN: No rashes, ecchymoses or lesions. Cool and dry. HEAD: Atraumatic. Normocephalic. No temporal or scalp tenderness. EYES: Pupils equal round and reactive. Extraocular motions intact. No scleral icterus. No injection or drainage. ENT: Nose without bleeding, purulent drainage or septal hematoma. Throat without erythema, tonsillar hypertrophy or exudate. Uvula midline. Airway patent. NECK: Trachea midline. No JVD or lymphadenopathy. Supple, nontender, no meningeal signs. CARDIOVASCULAR: Regular rate and rhythm without murmurs, gallops, or rubs. RESPIRATORY: Clear to auscultation. Breath sounds equal bilaterally. No wheezes , rales, or rhonchi. GASTROINTESTINAL: Abdomen soft, non-tender, nondistended. No hepato-splenomegaly , or palpable masses. No guarding. MUSCULOSKELETAL: Extremities without clubbing, cyanosis, or edema. No joint tenderness, effusion, or edema noted. No calf tenderness. Negative Homans sign bilaterally. NEUROLOGICAL: Awake and alert. Cranial nerves II through XII intact. Motor and sensory grossly within normal limits. Five out of 5 muscle strength in all muscle groups. Normal speech. Laboratory Laboratory Tests Test 12/19/17 10:20 White Blood Count 5.3 Red Blood Count 3.89 Hemoglobin 12.2 Hematocrit 35.9 Mean Corpuscular Volume 92.3 Mean Corpuscular Hemoglobin 31.3 Mean Corpuscular Hemoglobin Concent 33.9 Red Cell Distribution Width 14.1 Platelet Count 278 Mean Platelet Volume 8.6 Neutrophils (%) (Auto) 74.8 Lymphocytes (%) (Auto) 16.6 Monocytes (%) (Auto) 6.2 Eosinophils (%) (Auto) 1.9 Basophils (%) (Auto) 0.5 Neutrophils # (Auto) 4.0 Lymphocytes # (Auto) 0.9 Monocytes # (Auto) 0.3 Eosinophils # (Auto) 0.1 Basophils # (Auto) 0.0 CBC Comment DIFF FINAL Differential Comment Blood Urea Nitrogen 8 Creatinine 0.76 Random Glucose 94 Total Protein 6.6 Albumin 3.5 Calcium Level 8.9 Alkaline Phosphatase 85 Aspartate Amino Transf (AST/SGOT) 17 Alanine Aminotransferase (ALT/SGPT) 12 Total Bilirubin 0.5 Sodium Level 142 Potassium Level 3.8 Chloride Level 108 Carbon Dioxide Level 24.0 Anion Gap 10 Estimat Glomerular Filtration Rate 74 Lipase 74 Result Diagram: 12/19/17 1020 12/19/17 1020 Caprini VTE Risk Assessment Caprini Risk Assessment Model Point Value = 1 Point Value = 2 Point Value = 3 Point Value = 5 Age 41-60 Minor surgery BMI > 25 kg/m2 Swollen legs Varicose veins or History of unexplained or recurrent spontaneous Oral contraceptives or hormone replacement Sepsis (< 1 month) Serious lung disease, including pneumonia (< 1 month) Abnormal pulmonary function Acute myocardial infarction Congestive heart failure (< 1 month) History of inflammatory bowel disease Medical patient at bed rest Age 61-74 Arthroscopic surgery Major open surgery (> 45 min) Laparoscopic surgery (> 45 min) Malignancy Confined to bed (> 72 hours) Immobilizing plaster cast Central venous access Age >= 75 History of VTE Family history of VTE Factor V Leiden Prothrombin [id number] Lupus anticoagulant Anticardiolipin antibodies Elevated serum homocysteine Heparin-induced thrombocytopenia Other congenital or acquired thrombophilia Stroke (< 1 month) Elective arthroplasty Hip, pelvis, or leg fracture Acute spinal cord injury (< 1 month) Prophylaxis Regimen Total Risk Factor Score Risk Level Prophylaxis Regimen 0-1 Low Early ambulation 2 Moderate Order ONE of the following: *Sequential Compression Device (SCD) *Heparin 5000 units SQ BID 3-4 Higher Order ONE of the following medications: *Heparin 5000 units SQ TID *Enoxaparin/Lovenox 40 mg SQ daily (WT < 150 kg, CrCl > 30 mL/min) *Enoxaparin/Lovenox 30 mg SQ daily (WT < 150 kg, CrCl > 10-29 mL/min) *Enoxaparin/Lovenox 30 mg SQ BID (WT < 150 kg, CrCl > 30 mL/min) AND/OR *Sequential Compression Device (SCD) 5 or more Highest Order ONE of the following medications: *Heparin 5000 units SQ TID (Preferred with Epidurals) *Enoxaparin/Lovenox 40 mg SQ daily (WT < 150 kg, CrCl > 30 mL/min) *Enoxaparin/Lovenox 30 mg SQ daily (WT < 150 kg, CrCl > 10-29 mL/min) *Enoxaparin/Lovenox 30 mg SQ BID (WT < 150 kg, CrCl > 30 mL/min) AND *Sequential Compression Device (SCD) Zohra Townsend Dec 19, 2017 13:34
--- NOTE | 2017-12-19 14:17 | RADRPT ---
EXAM DATE/TIME: 12/19/2017 14:01 [facility] COMPARISON: CHEST SINGLE AP, March 24, 2017, 12:00. INDICATIONS : Cough. MEDICAL HISTORY : Dementia. Stroke. SURGICAL HISTORY : Tonsillectomy. ENCOUNTER: Initial ACUITY: 2 days PAIN SCORE: 0/10 LOCATION: Bilateral chest FINDINGS: A single view of the chest demonstrates minimal left basilar subsegmental atelectasis without evidenc e of mass, infiltrate or effusion. The cardiomediastinal contours are unremarkable. Osseous structu res are intact. Scoliosis. CONCLUSION: Left basilar subsegmental atelectasis. Aaron Tovar MD on December 19, 2017 at 14:16 Board Certified Radiologist. This report was verified electronically.
[2017-12-19] MEDS: MORPHINE SULFATE 2 MG/ML INJ IV PUSH PRN ×2 (14:39→20:04)
[2017-12-19] MEDS: ONDANSETRON HCL 4 MG/2 ML VIAL IVP PRN ×2 (14:39→20:04)
[2017-12-19] MEDS: LEVOFLOXACIN 500 MG PREMIX INJ 100 ML IV SCH (14:39)
[2017-12-19] MEDS: D5-1/2 NS + KCL 20 MEQ INJ 1,000 ML IV SCH (16:55)
[2017-12-19] MEDS: metroNIDAZOLE 500 MG INJ 100 ML IV SCH (16:56)
[2017-12-19 20:00] VITALS: BP 103/55; PULSE 55; RESP 16; TEMP 98.7; O2SAT 93
[2017-12-19] MEDS: DONEPEZIL HCL 5 MG TAB PO SCH (20:03)
[2017-12-19] MEDS: ALPRAZolam 1 MG TAB PO SCH (20:03)
[2017-12-19] MEDS: SODIUM CHLORIDE 0.9% FLUSH 10 ML FLUSH IV FLUSH SCH (21:00)
[2017-12-19] MEDS ORDERED: SODIUM CHLORIDE 0.9% FLUSH 10 ML FLUSH IV FLUSH SCH (21:00)
[2017-12-20] VITALS: BP 107/57; PULSE 56; RESP 16; TEMP 98; O2SAT 94
[2017-12-20] MEDS: metroNIDAZOLE 500 MG INJ 100 ML IV SCH ×4 (00:08→21:06)
[2017-12-20] MEDS ORDERED: METOPROLOL TARTRATE 25 MG TAB PO PRN (02:00)
[2017-12-20] MEDS ORDERED: LACTATED RINGER'S 1000 ML IV PRN (02:00)
[2017-12-20] MEDS ORDERED: CHLORHEXIDINE GLUCONATE 2 % 1 PACK (2 CLOTHS) TOPICAL PRN (02:00)
[2017-12-20] MEDS ORDERED: SODIUM CHLORID 0.9% 500 ML IV PRN (02:00)
[2017-12-20] MEDS ORDERED: POVIDONE IODINE 5% (ANTISEPSIS KIT) 4 APPLICATIONS EACH NARE PRN (02:00)
[2017-12-20 05:02] LABS: AUTOMATED NEUTROPHIL # 2.7 TH/MM3 (1.8-7.7); BASOPHIL % 0.3 % (0.0-2.0); EOSINOPHIL # 0.4 TH/MM3 (0-0.4); HEMATOCRIT 30.5 % (35.0-46.0); HEMOGLOBIN 10.7 GM/DL (11.6-15.3); LYMPHOCYTE # 1.4 TH/MM3 (1.0-4.8); MEAN CELL VOLUME 92.1 FL (80.0-100.0); MEAN CORPUSCULAR HEMOGLOBIN 32.2 PG (27.0-34.0); MEAN CORPUSCULAR HGB CONC 34.9 % (32.0-36.0); MEAN PLATELET VOLUME 8.6 FL (7.0-11.0); MONO % 11.3 % (0.0-8.0); MONOCYTE # 0.6 TH/MM3 (0-0.9); NEUT % 53.4 % (16.0-70.0); PLATELET COUNT 238 TH/MM3 (150-450); RED BLOOD COUNT 3.32 MIL/MM3 (4.00-5.30); RED CELL DISTRIBUTION WIDTH 14.1 % (11.6-17.2); WHITE BLOOD COUNT 5.1 TH/MM3 (4.0-11.0)
[2017-12-20 05:19] LABS: BICARBONATE 26.2 MEQ/L (21.0-32.0); CALCIUM 8.1 MG/DL (8.5-10.1); CREATININE 0.79 MG/DL (0.50-1.00)
[2017-12-20] MEDS: D5-1/2 NS + KCL 20 MEQ INJ 1,000 ML IV SCH ×2 (05:51→12:34)
[2017-12-20] MEDS: MORPHINE SULFATE 2 MG/ML INJ IV PUSH PRN ×2 (07:46→16:21)
[2017-12-20] MEDS: ALPRAZolam 1 MG TAB PO SCH ×2 (07:47→19:58)
[2017-12-20 08:00] VITALS: BP 110/58; PULSE 50; RESP 16; TEMP 97.4; O2SAT 95
--- NOTE | 2017-12-20 08:59 | EKG ---
Date Performed: 12/19/2017 Time Performed: 21:03:28 PTAGE: 72 years EKG: SINUS BRADYCARDIA MARKED LEFT AXIS DEVIATION ABNORMAL ECG PREVIOUS TRACING : 11/22/2017 07.00 Since the prior tracing, there has been no significant mason DOCTOR: Belkys Meneses Interpretating Date/Time 12/20/2017 08:56:03
[2017-12-20] MEDS: SODIUM CHLORIDE 0.9% FLUSH 10 ML FLUSH IV FLUSH SCH ×2 (09:00→19:59)
[2017-12-20] MEDS ORDERED: FAMOTIDINE 20 MG/2 ML VIAL ONE (09:40)
[2017-12-20] MEDS ORDERED: ACETAMINOPHEN 1000 MG/100 ML 100 ML IV ONE (09:40)
[2017-12-20] MEDS ORDERED: BUPIVACAINE/EPINEPHRINE 0.25% 50 ML VIAL ONE ×2 (10:52→11:28)
[2017-12-20] MEDS ORDERED: SUGAMMADEX SODIUM 200 MG/2 ML VIAL IV PUSH ONE (10:53)
[2017-12-20] MEDS ORDERED: KETOROLAC TROMETHAMINE 30 MG/ML (IVP) VIAL IV PUSH ONE (12:00)
[2017-12-20] MEDS ORDERED: PROPOFOL 200 MG/20 ML AMP IV ONE (12:00)
[2017-12-20] MEDS ORDERED: LIDOCAINE HCL 1% PF 5 ML SYRINGE OTHER ONE (12:00)
[2017-12-20] MEDS ORDERED: SODIUM CHLORIDE 0.9% 20 ML VIAL IV ONE (12:00)
[2017-12-20] MEDS ORDERED: ONDANSETRON HCL 4 MG/2 ML VIAL IV PUSH ONE (12:00)
[2017-12-20] MEDS ORDERED: ROCURONIUM INJ 50 MG/5 ML SYRINGE IV PUSH ONE (12:00)
[2017-12-20] MEDS ORDERED: LACTATED RINGER'S 1000 ML INJ 1,000 ML IV ONE (12:00)
[2017-12-20] MEDS ORDERED: DEXAMETHASONE SOD PHOS 4 MG/ML VIAL IV ONE (12:00)
[2017-12-20] MEDS ORDERED: GLYCOPYRROLATE 1 MG/5 ML SYRINGE IV PUSH ONE (12:00)
[2017-12-20] MEDS ORDERED: ePHEDrine/NS 25 MG/5 ML SYRINGE IV ONE (12:00)
--- NOTE | 2017-12-20 12:05 | PD.OP ---
cc: Andrzej Peoples MD Operative Report Date of Surgery: Dec 20, 2017 Preoperative Diagnosis: (1) Recurrent biliary colic (2) Gallstones Postoperative Diagnosis: (1) Gallstones (2) Recurrent biliary colic Procedure: Laparoscopic cholecystectomy Anesthesia: GETA Surgeon: Andrzej Peoples [employer] Driver(s): Michelle Snowden [id number] Operation and Findings: Complications: None apparent EBL: 10 cc Operative findings: Gallbladder with chronic inflammation and some omental adhesions. The gallbladder was incidentally entered and the bile was the consistency and color of motor oil with some small stones present. Procedure in detail: The patient was taken to the operating room and placed in the supine position. General endotracheal anesthesia was induced. The abdomen was prepped and draped in usual sterile fashion and a surgical timeout was performed to verify correct patient procedure and site. Appropriate perioperative antibiotics were administered. Local anesthetic was injected in the skin and subcutaneous tissue superior to the umbilicus and a 5 mm incision performed. The abdomen was entered using the Optiview 5 mm trocar with direct laparoscopic visualization. The abdomen was then insufflated to 15 mmHg with CO2 gas which the patient tolerated well. Next a 12 mm port was placed in the epigastrium and two 5 mm ports in the right upper quadrant and right lateral abdomen. The patient was placed in reverse Trendelenburg position and turned slightly to the left. Attention was turned to the right upper quadrant and the dome of the gallbladder was grasped and retracted cephalad. The infundibulum was retracted laterally to expose Calot's triangle. Blunt dissection and judicious use of electrocautery was used to expose the cystic duct and the cystic artery directly entering the gallbladder. Two clips were placed proximally on each of these structures and one distally and they were transected. The gallbladder was then removed from the liver bed using electrocautery. The gallbladder was incidentally entered with spillage of dark green/black thick bile. A small stone was also visualized and removed. Hemostasis was achieved. The gallbladder was then removed from the abdomen using an Endo Catch bag. The clips were in place on the cystic duct and cystic artery stumps with no bleeding or bile leakage. The right upper quadrant was copiously irrigated. At this point, the abdomen was allowed to desufflate and trochars were removed. The fascia at the 12 mm port site was closed with 0 Vicryl suture. Skin was closed with subcuticular 4-0 Monocryl as well as Dermabond. The patient tolerated the procedure well and was extubated and taken to PACU in stable condition. All sponge and instrument counts were correct. Andrzej Peoples MD Dec 20, 2017 12:05
[2017-12-20] MEDS ORDERED: HYDR-3516 PO (12:06)
[2017-12-20] MEDS ORDERED: DO NOT ADM ANY ANTICOAGULANT DRUGS PRN (12:14)
[2017-12-20] MEDS ORDERED: MIDAZOLAM HCL 2 MG/2 ML VIAL ONE (12:20)
[2017-12-20] MEDS ORDERED: *morphine SULFATE 4 MG/ML PERIprocedure ONLY ONE (12:30)
[2017-12-20 13:25] VITALS: BP 116/59; PULSE 63; RESP 17; TEMP 96.7; O2SAT 95
[2017-12-20 16:00] VITALS: BP 100/60; PULSE 54; RESP 18; TEMP 96.4; O2SAT 93
[2017-12-20] MEDS: LEVOFLOXACIN 500 MG PREMIX INJ 100 ML IV SCH (16:21)
[2017-12-20] MEDS: DONEPEZIL HCL 5 MG TAB PO SCH (19:59)
[2017-12-20 20:00] VITALS: BP 106/57; PULSE 53; RESP 19; TEMP 95.1; O2SAT 93
[2017-12-20] MEDS: ACETAMINOPHEN/HYDROcodone 325 MG/5 MG TAB PO PRN (21:06)
[2017-12-21 00:11] VITALS: BP 102/56; PULSE 59; RESP 19; TEMP 96.2; O2SAT 95
[2017-12-21 00:13] VITALS: BP 100/55; PULSE 75; RESP 18; TEMP 98.9; O2SAT 95
[2017-12-21] MEDS: metroNIDAZOLE 500 MG INJ 100 ML IV SCH ×2 (06:34→09:05)
[2017-12-21] MEDS: D5-1/2 NS + KCL 20 MEQ INJ 1,000 ML IV SCH (06:39)
[2017-12-21 08:00] VITALS: BP 96/55; PULSE 57; RESP 18; TEMP 96.4; O2SAT 95
[2017-12-21] MEDS: ALPRAZolam 1 MG TAB PO SCH (09:04)
[2017-12-21] MEDS: ACETAMINOPHEN/HYDROcodone 325 MG/5 MG TAB PO PRN (09:05)
[2017-12-21 10:06] VITALS: O2SAT 95
== END 2017-12-21 10:32 | disposition home or self-care (01) | DRG 419 ==
LOC: NEPD 09:14 → NEDA 13:26 → N07A 16:15
PROVIDERS: ADMIT Surgery; ATTEND Surgery
PROC: 0FT44ZZ Resection of Gallbladder, Percutaneous Endoscopic Approach (ICD-10-PCS; principal; 2017-12-20 11:04)
DX: K80.10 Calculus of gallbladder with chronic cholecystitis without obstruction (principal); F03.90 Unspecified dementia, unspecified severity, without behavioral disturbance, psychotic disturbance, mood disturbance, and anxiety; E78.00 Pure hypercholesterolemia, unspecified; M16.12 Unilateral primary osteoarthritis, left hip; K66.0 Peritoneal adhesions (postprocedural) (postinfection); F32.9 Major depressive disorder, single episode, unspecified; F41.9 Anxiety disorder, unspecified; Z88.0 Allergy status to penicillin; Z86.73 Personal history of transient ischemic attack (TIA), and cerebral infarction without residual deficits
CPT/HCPCS: 71045; 80048; 80053; 83690; 85025; 88304; 93005; 96360; 96361; J0131; J1100; J1885; J1956; J2250; J2270; J2405; J3010; J3480; J7040; J7120

== ENCOUNTER 2018-01-26 08:44 | Observation (INO) | payer MEDICARE ==
[~2018-01-26] VITALS: Ht 167.6 cm; Wt 68.0 kg
[~2018-01-26 08:44] MED LIST changes: -BUPR150T3 PO; -CITA40TA4 PO; -D 50CAP2 PO; +HYDR-3516 PO; -HYDR-3583 PO; -LEVA500T33 PO; -METR250 PO
[2018-01-26 08:48] VITALS: BP 144/81; PULSE 68; RESP 18; TEMP 97.4; O2SAT 97
[2018-01-26 09:09] VITALS: BP 138/70; PULSE 61; RESP 18; O2SAT 98
--- NOTE | 2018-01-26 09:28 | PD ---
HPI Chief Complaint: General Weakness Time Seen by Provider: 09:28 Travel History International Travel<30 days: No Contact w/Intl Traveler<30days: No Traveled to known affect area: No History of Present Illness HPI 72-year-old female came to the emergency room with history of multiple unrelated complaints. She was complaining of epigastric pain for 1 week and also neck pain and base of the occiput pain. Patient is extremely anxious and has some element of dementia as well. Her gave most of the meaningful history. Patient is status post cholecystectomy one month ago. No history of vomiting or diarrhea. No aggravating or relieving factors identified about the pain but patient just kept looking very anxious and complaining of the pain. Vital signs are stable. Patient is on hydrocodone and ibuprofen for pain at home. Seems like the pain is not controlled by these home medications. PFSH Past Medical History Narrative Medical List of her past medical, surgical, social and family history is reviewed from the nursing note. Hx Anticoagulant Therapy: No Asthma: No Anxiety: Yes Depression: Yes Cancer: No Cardiovascular Problems: Yes (LEG VEINS STRIPPED YEARS AGO) High Cholesterol: Yes COPD: No Cerebrovascular Accident: Yes (TIA 2014) Dementia: Yes Diabetes: No Diminished Hearing: No Endocrine: No Gastrointestinal Disorders: No Genitourinary: No Hepatitis: No Hiatal Hernia: No Immune Disorder: No Musculoskeletal: Yes (OA, LEFT HIP PAIN) Neurologic: Yes (TIA, MEMORY ISSUE AT TIME) Psychiatric: Yes (ANXIETY, DEPRESSION ) Reproductive: No Respiratory: No Thyroid Disease: No Triglycerides - High: Yes Tetanus Vaccination: > 5 Years Influenza Vaccination: No Menopausal: Yes : 4 Para: 4 Past Surgical History Abdominal Surgery: No AICD: No Body Medical Devices: NONE Cardiac Surgery: No Cholecystectomy: Yes Ear Surgery: No Endocrine Surgery: No Eye Surgery: No Genitourinary Surgery: No Gynecologic Surgery: No Joint Replacement: No Oral Surgery: No Pacemaker: No Thoracic Surgery: No Tonsillectomy: Yes Other Surgery: Yes (Leg veins stripped) Social History Alcohol Use: No Tobacco Use: No Substance Use: No Allergies-Medications (Allergen,Severity, Reaction): Coded Allergies: penicillin G (Verified Allergy, Severe, Swelling, hives, 01/26/18) Comments List of her allergies reviewed from the nursing note. Reported Meds & Prescriptions Reported Meds & Active Scripts Active Hydrocodone-Acetamin 5-325 mg (Hydrocodone/Acetaminophen) 5 Mg-325 Mg Tablet 1- 2 Tab PO Q6H PRN Aspirin 325 Mg Tab 325 Mg PO DAILY Meclizine (Meclizine HCl) 25 Mg Tab 25 Mg PO TID PRN Reported Donepezil 5 Mg Tab 5 Mg PO HS Alprazolam 1 Mg Tab 1 Mg PO BID Narrative Medication List of her home medications reviewed from the nursing note. Review of Systems Except as stated in HPI: all other systems reviewed are Neg Gastrointestinal: Positive: Abdominal Pain Musculoskeletal: Positive: Pain Physical Exam Narrative GENERAL: Awake, alert, extremely anxious, confused, dementia SKIN: Focused skin assessment warm/dry. HEAD: Atraumatic. Normocephalic. EYES: Pupils equal and round. No scleral icterus. No injection or drainage. ENT: No nasal bleeding or discharge. Mucous membranes pink and moist. NECK: Trachea midline. No JVD. CARDIOVASCULAR: Regular rate and rhythm. No murmur appreciated. RESPIRATORY: No accessory muscle use. Clear to auscultation. Breath sounds equal bilaterally. GASTROINTESTINAL: Abdomen soft, non-tender, nondistended. Hepatic and splenic margins not palpable. MUSCULOSKELETAL: No obvious deformities. No clubbing. No cyanosis. No edema. NEUROLOGICAL: Awake and alert. Confused with dementia no obvious cranial nerve deficits. Motor grossly within normal limits. Normal speech. PSYCHIATRIC: Appropriate mood and affect; insight and judgment normal. Data Data Last Documented VS Vital Signs Date Time Temp Pulse Resp B/P (MAP) Pulse Ox O2 Delivery O2 Flow Rate FiO2 01/26/18 09:09 61 18 138/70 (92) 98 Room Air 01/26/18 08:48 97.4 Orders Orders Electrocardiogram (01/26/18 10:03) Prothrombin Time / Inr (Pt) (01/26/18 10:03) Complete Blood Count With Diff (01/26/18 10:03) Basic Metabolic Panel (Bmp) (01/26/18 10:03) Troponin I (01/26/18 10:03) Ct Brain W/O Iv Contrast(Rout) (01/26/18 10:03) Ecg Monitoring (01/26/18 10:03) Iv Access Insert/Monitor (01/26/18 10:03) Oximetry (01/26/18 10:03) Morphine Inj (Morphine Inj) (01/26/18 10:15) Sodium Chloride 0.9% Flush (Ns Flush) (01/26/18 10:15) Ondansetron Inj (Zofran Inj) (01/26/18 10:15) Pantoprazole Inj (Protonix Inj) (01/26/18 10:15) Ct Cerv Spine W/O Contrast (01/26/18 ) Ct Abd/Pel W/O Iv Contrast (01/26/18 ) Sodium Chlorid 0.9% 500 Ml Inj (Ns 500 M (01/26/18 10:15) Ketorolac Inj (Toradol Inj) (01/26/18 11:45) Hepatic Functional Panel (01/26/18 12:15) Lipase (01/26/18 12:15) Admit Order (Ed Use Only) (01/26/18 12:24) Labs Laboratory Tests Test 01/26/18 09:15 White Blood Count 6.4 TH/MM3 Red Blood Count 4.12 MIL/MM3 Hemoglobin 12.7 GM/DL Hematocrit 38.1 % Mean Corpuscular Volume 92.3 FL Mean Corpuscular Hemoglobin 30.8 PG Mean Corpuscular Hemoglobin Concent 33.3 % Red Cell Distribution Width 15.2 % Platelet Count 349 TH/MM3 Mean Platelet Volume 9.0 FL Neutrophils (%) (Auto) 68.5 % Lymphocytes (%) (Auto) 20.4 % Monocytes (%) (Auto) 5.8 % Eosinophils (%) (Auto) 4.8 % Basophils (%) (Auto) 0.5 % Neutrophils # (Auto) 4.4 TH/MM3 Lymphocytes # (Auto) 1.3 TH/MM3 Monocytes # (Auto) 0.4 TH/MM3 Eosinophils # (Auto) 0.3 TH/MM3 Basophils # (Auto) 0.0 TH/MM3 CBC Comment DIFF FINAL Differential Comment Prothrombin Time 10.9 SEC Prothromb Time International Ratio 1.1 RATIO Blood Urea Nitrogen 6 MG/DL Creatinine 0.85 MG/DL Random Glucose 97 MG/DL Calcium Level 8.8 MG/DL Sodium Level 142 MEQ/L Potassium Level 3.7 MEQ/L Chloride Level 110 MEQ/L Carbon Dioxide Level 27.1 MEQ/L Anion Gap 5 MEQ/L Estimat Glomerular Filtration Rate 65 ML/MIN Total Bilirubin 0.4 MG/DL Direct Bilirubin 0.1 MG/DL Indirect Bilirubin 0.3 MG/DL Aspartate Amino Transf (AST/SGOT) 16 U/L Alanine Aminotransferase (ALT/SGPT) 13 U/L Alkaline Phosphatase 62 U/L Troponin I LESS THAN 0.02 NG/ML Total Protein 6.9 GM/DL Albumin 3.5 GM/DL Lipase 160 U/L [facility] Medical Decision Making Medical Screen Exam Complete: Yes Emergency Medical Condition: Yes Medical Record Reviewed: Yes Interpretation(s) Twelve-lead EKG was reviewed by me. Normal sinus rhythm, left axis deviation, bradycardia, nonspecific ST-T wave changes. Heart rate of 51 bpm. Differential Diagnosis Postop pain, acute gastritis, cervical radiculopathy Narrative Course 12:35 PM the test results are back and within acceptable limits. I ordered a CAT scan of her head, cervical spine and abdomen and pelvis. CT head is negative. CT C-spine is positive for DJD of the cervical spine with foraminal narrowing. CT scan of the abdomen and pelvis is essentially negative. Patient was initially treated for pain, Protonix was given an IV fluid. However patient kept complaining that the pain is getting worse. At this point I have not found anything on my workup besides the cervical radiculopathy that can explain her epigastric pain. I decided to admit her for intractable pain. Her daughter came in later who is quite concerned about her condition as well. I have informed the daughter about the plan of admitting her for observation. The hospitalist has accepted the case. Procedures EKG Prior to Arrival: No Diagnosis Primary Impression: Intractable abdominal pain Additional Impression: Cervical radicular pain Admitting Information Admitting Physician Requests: Observation Scripts Vancomycin Inj (Vancomycin Inj) 500 Mg Inj 125 MG PO QID for recurrent c. diff for 9 Days, INJECTION Prov: Sheba Romo 01/28/18 Praneteh Huertas MD Jan 26, 2018 09:28
[2018-01-26] MEDS ORDERED: SODIUM CHLORID 0.9% 500 ML INJ 500 ML IV ONE (10:15)
[2018-01-26] MEDS ORDERED: MORPHINE SULFATE 4 MG/ML INJ IV PUSH ONE (10:15)
[2018-01-26] MEDS ORDERED: PANTOPRAZOLE SODIUM 40 MG VIAL IV PUSH ONE (10:15)
[2018-01-26] MEDS ORDERED: ONDANSETRON HCL 4 MG/2 ML VIAL IV PUSH ONE (10:15)
[2018-01-26] MEDS ORDERED: SODIUM CHLORIDE 0.9% FLUSH 10 ML FLUSH IVF PRN (10:15)
--- NOTE | 2018-01-26 10:35 | RADRPT ---
EXAM DATE/TIME: 01/26/2018 10:10 [facility] COMPARISON: CT BRAIN W/O CONTRAST, November 19, 2017, 11:59. INDICATIONS : General weakness for one week. RADIATION DOSE: 66.34 CTDIvol (mGy) MEDICAL HISTORY : Stroke. Dementia. Hypertension. SURGICAL HISTORY : Cholecystectomy. ENCOUNTER: Initial ACUITY: 1 day PAIN SCALE: 0/10 LOCATION: Bilateral head TECHNIQUE: Multiple contiguous axial images were obtained of the head. Using automated exposure control and adj ustment of the mA and/or kV according to patient size, radiation dose was kept as low as reasonably a chievable to obtain optimal diagnostic quality images. DICOM format image data is available electro nically for review and comparison. FINDINGS: There is marked central and cortical atrophy with dila tation of ventricular and sulcal spaces. There is no parenchymal hemorrhage, acute infarction or mas s lesion identified. There are no extra-axial fluid collections appreciated. The posterior fossa is unremarkable with midline fourth ventricle. The portion of the orbits and paranasal sinuses visuali zed are unremarkable. No significant change has occurred. CONCLUSION: No acute disease. Melissa Mireles MD on January 26, 2018 at 10:31 Board Certified Radiologist. This report was verified electronically.
[2018-01-26 10:50] LABS: AUTOMATED NEUTROPHIL # 4.4 TH/MM3 (1.8-7.7); BASOPHIL % 0.5 % (0.0-2.0); EOSINOPHIL # 0.3 TH/MM3 (0-0.4); EOSINOPHIL % 4.8 % (0.0-4.0); HEMATOCRIT 38.1 % (35.0-46.0); HEMOGLOBIN 12.7 GM/DL (11.6-15.3); LYMPH % 20.4 % (9.0-44.0); LYMPHOCYTE # 1.3 TH/MM3 (1.0-4.8); MEAN CELL VOLUME 92.3 FL (80.0-100.0); MEAN CORPUSCULAR HEMOGLOBIN 30.8 PG (27.0-34.0); MEAN CORPUSCULAR HGB CONC 33.3 % (32.0-36.0); MONO % 5.8 % (0.0-8.0); MONOCYTE # 0.4 TH/MM3 (0-0.9); NEUT % 68.5 % (16.0-70.0); PLATELET COUNT 349 TH/MM3 (150-450); RED BLOOD COUNT 4.12 MIL/MM3 (4.00-5.30); RED CELL DISTRIBUTION WIDTH 15.2 % (11.6-17.2); WHITE BLOOD COUNT 6.4 TH/MM3 (4.0-11.0)
[2018-01-26 11:03] LABS: INTERNATIONAL NORMALIZED RATIO 1.1 RATIO; PROTHROMBIN TIME - PATIENT 10.9 SEC (9.8-11.6)
[2018-01-26 11:07] LABS: BICARBONATE 27.1 MEQ/L (21.0-32.0); BLOOD UREA NITROGEN 6 MG/DL (7-18); CALCIUM 8.8 MG/DL (8.5-10.1); CHLORIDE 110 MEQ/L (98-107); CREATININE 0.85 MG/DL (0.50-1.00); GLOMERULAR FILTRATION RATE 65 ML/MIN (>89); GLUCOSE,RANDOM 97 MG/DL (74-106); SODIUM (NA) 142 MEQ/L (136-145)
[2018-01-26 11:11] LABS: TROPONIN I LESS THAN 0.02 NG/ML (0.02-0.05)
--- NOTE | 2018-01-26 11:14 | RADRPT ---
EXAM DATE/TIME: 01/26/2018 10:17 [facility] COMPARISON: US ABDOMEN - LIVER, November 19, 2017, 16:40. INDICATIONS : General weakness, decreased appetite and lower abdomen pain for one week. ORAL CONTRAST: No oral contrast ingested. RADIATION DOSE: 6.57 CTDIvol (mGy) MEDICAL HISTORY : Stroke. Hypertension. SURGICAL HISTORY : Cholecystectomy. ENCOUNTER: Initial ACUITY: 1 week PAIN SCALE: 6/10 LOCATION: Bilateral lower quadrant TECHNIQUE: Volumetric scanning of the abdomen and pelvis was performed. Using automated exposure control and ad justment of the mA and/or kV according to patient size, radiation dose was kept as low as reasonably achievable to obtain optimal diagnostic quality images. DICOM format image data is available electro nically for review and comparison. FINDINGS: LOWER LUNGS: The visualized lower lungs are clear. LIVER: Liver demonstrates a single low density lesion measuring 8 mm within the left medial segment consiste nt with a small cyst. The remainder the liver is unremarkable. The patient is status post cholecystec mitali. SPLEEN: Normal size without lesion. PANCREAS: Within normal limits. KIDNEYS: There is a small calcific density identified in the midpole the right kidney. Prior ultrasound demons trated a 1 cm stone. No evidence of hydronephrosis. Left kidney is unremarkable. ADRENAL GLANDS: Within normal limits. VASCULAR: Extensive atherosclerosis. BOWEL/MESENTERY: Diverticulosis of the sigmoid colon. The noncontrast evaluation of the large and small bowel is other [place] unremarkable. No evidence of inflammatory change. ABDOMINAL WALL: Within normal limits. RETROPERITONEUM: There is no lymphadenopathy. BLADDER: No wall thickening or mass. REPRODUCTIVE: Within normal limits. INGUINAL: There is no lymphadenopathy or hernia. MUSCULOSKELETAL: Left hip prosthesis. No evidence of loosening or failure. Scoliosis of the lumbar spine with associat ed degenerative changes. CONCLUSION: Diverticulosis of the sigmoid colon. The no evidence of adjacent inflammatory change.. Melissa Mireles MD on January 26, 2018 at 11:06 Board Certified Radiologist. This report was verified electronically.
--- NOTE | 2018-01-26 11:18 | RADRPT ---
EXAM DATE/TIME: 01/26/2018 10:10 [facility] COMPARISON: No previous studies available for comparison. INDICATIONS : Neck pain for one week. RADIATION DOSE: 16.95 CTDIvol (mGy) MEDICAL HISTORY : Cerebrovascular disease. Dementia. Cardiovascular diseaseHTN SURGICAL HISTORY : Cholecystectomy. ENCOUNTER: Initial ACUITY: 1 week PAIN SCALE: 7/10 LOCATION: neck TECHNIQUE: Volumetric scanning of the cervical spine was performed. Multiplanar reconstructions in the sagittal, coronal and oblique axial planes were performed. Using automated exposure control and adjustment o f the mA and/or kV according to patient size, radiation dose was kept as low as reasonably achievable to obtain optimal diagnostic quality images. DICOM format image data is available electronically f or review and comparison. FINDINGS: VERTEBRAE: Normal vertebral body height. ALIGNMENT: No evidence of subluxation. C2-C3: Moderate bilateral facet degenerative changes. This results in mild bilateral neuroforaminal narrowin g. No spinal canal narrowing. C3-C4: Moderate left facet degenerative change. Mild left-sided neuroforaminal narrowing. C4-C5: Severe right-sided facet degenerative change and bilateral mild uncovertebral joint hypertrophy. Dulce re right-sided neuroforaminal narrowing. C5-C6: Disc desiccation and disc space narrowing and bilateral uncovertebral joint hypertrophy. Moderate sonali ateral neuroforaminal narrowing, left greater than right. C6-C7: Severe disc desiccation and disc space narrowing moderate uncovertebral joint hypertrophy and severe right-sided facet degenerative change. There is moderate right-sided neuroforaminal narrowing. C7-T1: The bony spinal canal is normal in size. No evidence of disc bulge or herniation. The neural forami na are bilaterally patent. CONCLUSION: Degenerative changes as noted above. This results in areas of neuroforaminal narrowing.. Melissa Mireles MD on January 26, 2018 at 11:12 Board Certified Radiologist. This report was verified electronically.
[2018-01-26] MEDS ORDERED: KETOROLAC TROMETHAMINE 30 MG/ML (IVP) VIAL IV PUSH ONE (11:45)
--- NOTE | 2018-01-26 13:08 | HHI.HP ---
HPI Service [facility] Hospitalists Primary Care Physician Timo Batres MD Admission Diagnosis Intractable pain, degenerative cervical spine disease Chief Complaint: Abdominal pain Travel History International Travel<30 Days: No Contact w/Intl Traveler <30 Da: No Traveled to Known Affected Are: No History of Present Illness Mrs. Honeycutt is a pleasant 72 y/o WF with anxiety/depression, essential tremor, dementia, cerebellar ataxia, and recent hx of chronic cholecystitis s/p Lap mary on 12/20/17. Pt is a rather difficult historian. Pts daughter is at the bedisde and aide in the history. She presented [place] [facility] with complaints of worsening epigastric abdominal pain. She states that the pain today was the worst that it has been but has occurred intermittently but pt unable to tell me for how long this has been occurring. She is unable to characterize the pain. Her daughter at the bedside states that the the patient "hasn't been herself" lately. The pt reports that she has been belching and burping for the last few days and feels like she can't eat. She states that she does not have an appetite and has not been eating much. She can't say for sure if the pain is worse with trying to eat. Pts reports that after the gallbladder surgery she developed diarrhea and was found to be positive for C. diff on 01/08/18 and was treated with 10 days of Flagyl 500mg TID. She completed treatment around 1 week ago. She reports that the stool was still loose, having 4-5 BMs up until today. She states that she had a hard, thin BM today in the ED which is the first day she had a solid stool since completing the treatment for C. diff. She has not been started on any new medications other than the treatment for the C. diff. She denies any NSAID use other than daily ASA 325mg daily. Pt denies any melena, BRBPR, vomiting, chest pain, SOB, palpitations, or dizziness. She also complains of a pain in the back of her head and neck that occurs only at night and keeps her from sleeping. She states that there is no pain during the day. She called her PCP regarding this pain and she has been taking Tylenol 650mg po daily as needed. She reports that the Tylenol didn't agree with her and was sick to her stomach all day Angel[place]. Discussed the case with Dr. Peoples and he reviewed the CT scan of the abd/pelvis. He did not feel there was any issue with the surgical bed or any particular bowel wall thickening noted. Review of Systems Constitutional: DENIES: Fever, Chills Eyes: DENIES: Vision loss Ears, nose, mouth, throat: DENIES: Hearing loss Respiratory: DENIES: Cough, Shortness of breath Cardiovascular: DENIES: Chest pain, Palpitations, Lower Extremity Edema Gastrointestinal: COMPLAINS OF: Abdominal pain, Diarrhea, Nausea, Vomiting, Anorexia Musculoskeletal: DENIES: Neck pain Integumentary: DENIES: Rash Neurologic: COMPLAINS OF: Tremor (chronic), DENIES: Headache Psychiatric: COMPLAINS OF: Confusion Past Family Social History Past Medical History Anxiety/Depression Aortic valve sclerosis Essential tremor Dementia Cerebellar ataxia Hx of chronic cholecystitis s/p Lap mary on 12/20/17 Hx of C. diff colitis DDD Hyperlipidemia Pulmonary HTN Hx of TIA Hx of sinus bradycardia 2D echo (02/13/2017): - Estimated EF 60-65% - grade 1 diastolic dysfunction - mild mitral valve regurg - aortic valve sclerosis - mild to moderate tricuspd valve regurg estimated PA pressure 52mmHg Past Surgical History Lap Mary on 12/20/[address] Peoples Left total hip arthroplasty in 09/2017 Varicose vein stripping Tonsillectomy Reported Medications Hydrocodone-Acetamin 5-325 mg 1-2 Tab PO Q6H PRN Aspirin 325 Mg PO DAILY Meclizine 25 Mg PO TID PRN Donepezil 5 Mg PO HS Alprazolam 1 Mg PO BID ?Citalopram 40Mg PO DAILY ?Bupropion 150Mg PO DAILY Allergies: Coded Allergies: penicillin G (Verified Allergy, Severe, Swelling, hives, 01/26/18) Family History Mother with hx of gastric cancer Social History Remote hx of tobacco use, smoked 1ppd x 20 years, quit in 1986 Denies any alcohol use Pt is and lives locally Physical Exam Vital Signs Vital Signs Date Time Temp Pulse Resp B/P (MAP) Pulse Ox O2 Delivery O2 Flow Rate FiO2 01/26/18 09:09 61 18 138/70 (92) 98 Room Air 01/26/18 09:08 61 20 97 Room Air 01/26/18 08:48 97.4 68 18 144/81 (102) 97 Physical Exam GENERAL: This is a well-nourished, well-developed patient, in no apparent distress. HEENT: Atraumatic. Normocephalic. No temporal or scalp tenderness. No scleral icterus. Airway patent. NECK: Trachea midline, supple, nontender. CARDIO: Regular. RESP: CTA bilaterally. No wheezes, rales, or rhonchi. ABD: +BS, soft, RUQ and epigastric tenderness, nondistended. EXT: Extremities without clubbing, cyanosis, or edema. NEURO: Awake and alert. Motor and sensory grossly within normal limits. Normal speech. Laboratory Laboratory Tests Test 01/26/18 09:15 White Blood Count 6.4 Red Blood Count 4.12 Hemoglobin 12.7 Hematocrit 38.1 Mean Corpuscular Volume 92.3 Mean Corpuscular Hemoglobin 30.8 Mean Corpuscular Hemoglobin Concent 33.3 Red Cell Distribution Width 15.2 Platelet Count 349 Mean Platelet Volume 9.0 Neutrophils (%) (Auto) 68.5 Lymphocytes (%) (Auto) 20.4 Monocytes (%) (Auto) 5.8 Eosinophils (%) (Auto) 4.8 Basophils (%) (Auto) 0.5 Neutrophils # (Auto) 4.4 Lymphocytes # (Auto) 1.3 Monocytes # (Auto) 0.4 Eosinophils # (Auto) 0.3 Basophils # (Auto) 0.0 CBC Comment DIFF FINAL Differential Comment Prothrombin Time 10.9 Prothromb Time International Ratio 1.1 Blood Urea Nitrogen 6 Creatinine 0.85 Random Glucose 97 Calcium Level 8.8 Sodium Level 142 Potassium Level 3.7 Chloride Level 110 Carbon Dioxide Level 27.1 Anion Gap 5 Estimat Glomerular Filtration Rate 65 Troponin I LESS THAN 0.02 Result Diagram: 01/26/1815 01/26/1815 Imaging Last Impressions Head CT 01/26/18 1003 Signed Impressions: Service Date/Time: Friday, January 26, 2018 10:10 - CONCLUSION: No acute disease. Melissa Mireles MD Cervical Spine CT 01/26/18 0000 Signed Impressions: Service Date/Time: Friday, January 26, 2018 10:10 - CONCLUSION: Degenerative changes as noted above. This results in areas of neuroforaminal narrowing.. Melissa Mireles MD Abdomen/Pelvis CT 01/26/18 0000 Signed Impressions: Service Date/Time: Friday, January 26, 2018 10:17 - CONCLUSION: Diverticulosis of the sigmoid colon. The no evidence of adjacent inflammatory change.. MD Marianna Torrez VTE Risk Assessment Marianna VTE Risk Assessment: Mod/High Risk (score >= 2) Caprini Risk Assessment Model Point Value = 1 Point Value = 2 Point Value = 3 Point Value = 5 Age 41-60 Minor surgery BMI > 25 kg/m2 Swollen legs Varicose veins or History of unexplained or recurrent spontaneous Oral contraceptives or hormone replacement Sepsis (< 1 month) Serious lung disease, including pneumonia (< 1 month) Abnormal pulmonary function Acute myocardial infarction Congestive heart failure (< 1 month) History of inflammatory bowel disease Medical patient at bed rest Age 61-74 Arthroscopic surgery Major open surgery (> 45 min) Laparoscopic surgery (> 45 min) Malignancy Confined to bed (> 72 hours) Immobilizing plaster cast Central venous access Age >= 75 History of VTE Family history of VTE Factor V Leiden Prothrombin [id number] Lupus anticoagulant Anticardiolipin antibodies Elevated serum homocysteine Heparin-induced thrombocytopenia Other congenital or acquired thrombophilia Stroke (< 1 month) Elective arthroplasty Hip, pelvis, or leg fracture Acute spinal cord injury (< 1 month) Prophylaxis Regimen Total Risk Factor Score Risk Level Prophylaxis Regimen 0-1 Low Early ambulation 2 Moderate Order ONE of the following: *Sequential Compression Device (SCD) *Heparin 5000 units SQ BID 3-4 Higher Order ONE of the following medications: *Heparin 5000 units SQ TID *Enoxaparin/Lovenox 40 mg SQ daily (WT < 150 kg, CrCl > 30 mL/min) *Enoxaparin/Lovenox 30 mg SQ daily (WT < 150 kg, CrCl > 10-29 mL/min) *Enoxaparin/Lovenox 30 mg SQ BID (WT < 150 kg, CrCl > 30 mL/min) AND/OR *Sequential Compression Device (SCD) 5 or more Highest Order ONE of the following medications: *Heparin 5000 units SQ TID (Preferred with Epidurals) *Enoxaparin/Lovenox 40 mg SQ daily (WT < 150 kg, CrCl > 30 mL/min) *Enoxaparin/Lovenox 30 mg SQ daily (WT < 150 kg, CrCl > 10-29 mL/min) *Enoxaparin/Lovenox 30 mg SQ BID (WT < 150 kg, CrCl > 30 mL/min) AND *Sequential Compression Device (SCD) Assessment and Plan Problem List: (1) Intractable abdominal pain ICD Codes: R10.9 - Unspecified abdominal pain Status: Acute Plan: Intractable Abdominal pain Hx of chronic cholecystitis s/p Lap mary in 12/2017 Recent C. diff infection - Pt is a 72 y/o WF with anxiety/depression, essential tremor, dementia, cerebellar ataxia, and recent hx of chronic cholecystitis s/p Lap mary on . - She presented to the ED [place] [facility] [place]18 with complaints of worsening epigastric abdominal pain which was reportedly the worst is has been. The pt also reports belching and burping for the last few days and feels like she can't eat. She states that she does not have an appetite and has not been eating much. - Pt was recently found to be positive for C. diff on 01/08/18 and was treated with 10 days of Flagyl 500mg TID. She completed treatment around 1 week ago. She reports that the stool was still loose, having 4-5 BMs up until today. She states that she had a hard, thin BM today in the ED which is the first day she had a solid stool since completing the treatment for C. diff. - Pts labs in the ED noted a normal WBC count. Her electrolytes are stable and LFTs and Lipase are WNL. - CT Abd/pelvis (01/26) --> Diverticulosis of the sigmoid colon. The no evidence of adjacent inflammatory change. - Discussed the case with Dr. Peoples and he reviewed the CT scan of the abd/ pelvis. He did not feel there was any issue with the surgical bed or any particular bowel wall thickening noted. - There did seem to be a fair amount of gas in the colon on the CT - We will give Simethicone 125mg TID, Protonix 40mg IV Q12H - If pt has any further loose stool we will check for C. diff - Encourage oral intake - Supportive care - Further recommendations as the case develops Anxiety - Cont. home meds Dementia - Cont. home meds DVT prophylaxis with SCDs (2) Generalized weakness ICD Codes: R53.1 - Weakness Status: Acute (3) Anxiety ICD Codes: F41.9 - Anxiety Status: Acute Sheba Romo Jan 26, 2018 13:08
[2018-01-26 13:12] LABS: ALBUMIN 3.5 GM/DL (3.4-5.0); DIRECT BILIRUBIN ADULT 0.1 MG/DL (0.0-0.2)
[2018-01-26 13:14] LABS: INDIRECT BILIRUBIN 0.3 MG/DL (0.0-0.8); TOTAL BILIRUBIN ADULT 0.4 MG/DL (0.2-1.0); TOTAL PROTEIN 6.9 GM/DL (6.4-8.2)
[2018-01-26] MEDS ORDERED: PANTOPRAZOLE SODIUM 40 MG VIAL IV PUSH SCH (13:45)
[2018-01-26 14:00] VITALS: BP 140/67; PULSE 54; RESP 18; O2SAT 98
[2018-01-26] MEDS ORDERED: ONDANSETRON HCL 4 MG/2 ML VIAL IV PRN (14:30)
[2018-01-26] MEDS: SIMETHICONE 125 MG CHEWABLE TAB PO SCH ×2 (14:59→23:13)
--- NOTE | 2018-01-26 17:09 | EKG ---
Date Performed: 01/26/2018 Time Performed: 10:47:19 PTAGE: 72 years EKG: SINUS BRADYCARDIA MARKED LEFT AXIS DEVIATION Since the previous tracing, no significant jordy nge noted ABNORMAL ECG PREVIOUS TRACING : 12/19/2017 21.03 DOCTOR: Chris Vázquez Interpretating Date/Time 01/26/2018 17:08:33
[2018-01-26] MEDS: LACTOBACILLUS ACIDOPHILUS TAB PO SCH (18:20)
[2018-01-26] MEDS: ACETAMINOPHEN/HYDROcodone 325 MG/5 MG TAB PO PRN (18:25)
[2018-01-26 18:34] VITALS: BP 144/66; PULSE 60; RESP 20; TEMP 97.3; O2SAT 93
[2018-01-26 20:25] VITALS: BP 135/71; PULSE 60; RESP 18; TEMP 97.3; O2SAT 96
[2018-01-26] MEDS: DONEPEZIL HCL 5 MG TAB PO SCH (20:44)
[2018-01-26] MEDS: ALPRAZolam 1 MG TAB PO SCH (20:44)
[2018-01-26] MEDS: PANTOPRAZOLE SODIUM 40 MG VIAL IV PUSH SCH (20:46)
[2018-01-27] VITALS (7 sets, daily range): BP systolic 105–135; BP diastolic 55–100; PULSE 56–65; RESP 16–18; TEMP 97.6–98.7; O2SAT 93–95
[2018-01-27] MEDS: ACETAMINOPHEN 325 MG TAB PO PRN ×2 (02:58→09:01)
[2018-01-27] MEDS: SIMETHICONE 125 MG CHEWABLE TAB PO SCH ×3 (05:45→21:12)
[2018-01-27 06:23] LABS: BASOPHIL % 0.6 % (0.0-2.0); EOSINOPHIL # 0.5 TH/MM3 (0-0.4); EOSINOPHIL % 8.4 % (0.0-4.0); HEMATOCRIT 36.1 % (35.0-46.0); LYMPH % 18.4 % (9.0-44.0); LYMPHOCYTE # 1.2 TH/MM3 (1.0-4.8); MEAN CELL VOLUME 92.3 FL (80.0-100.0); MEAN CORPUSCULAR HEMOGLOBIN 30.6 PG (27.0-34.0); MEAN CORPUSCULAR HGB CONC 33.1 % (32.0-36.0); MEAN PLATELET VOLUME 8.6 FL (7.0-11.0); MONO % 9.6 % (0.0-8.0); MONOCYTE # 0.6 TH/MM3 (0-0.9); PLATELET COUNT 295 TH/MM3 (150-450); RED BLOOD COUNT 3.91 MIL/MM3 (4.00-5.30); RED CELL DISTRIBUTION WIDTH 15.1 % (11.6-17.2); WHITE BLOOD COUNT 6.3 TH/MM3 (4.0-11.0)
[2018-01-27 06:43] LABS: BICARBONATE 26.5 MEQ/L (21.0-32.0); CALCIUM 8.1 MG/DL (8.5-10.1); CREATININE 0.78 MG/DL (0.50-1.00); MAGNESIUM 2.2 MG/DL (1.5-2.5)
[2018-01-27] MEDS: ALPRAZolam 1 MG TAB PO SCH ×2 (09:01→21:12)
[2018-01-27] MEDS: LACTOBACILLUS ACIDOPHILUS TAB PO SCH ×3 (09:01→19:03)
[2018-01-27] MEDS: ASPIRIN 325 MG TAB PO SCH (09:01)
[2018-01-27] MEDS: PANTOPRAZOLE SODIUM 40 MG VIAL IV PUSH SCH ×2 (09:02→21:12)
--- NOTE | 2018-01-27 10:05 | HHI.PR ---
Subjective Remarks Pt denies any abdominal pain this morning Pt is eating breakfast She had a formed BM Complains of a headache and neck pain which is a chronic and worsening problem over the last few months Objective Vitals Vital Signs Date Time Temp Pulse Resp B/P (MAP) Pulse Ox O2 Delivery O2 Flow Rate FiO2 01/27/18 07:50 97.6 65 18 130/62 (84) 95 01/27/18 04:12 97.6 56 16 117/58 (77) 95 01/27/18 01:13 97.6 56 17 118/66 (83) 93 01/26/18 20:25 97.3 60 18 135/71 (92) 96 01/26/18 18:34 97.3 60 20 144/66 (92) 93 01/26/18 17:51 01/26/18 14:00 54 18 140/67 (91) 98 Room Air Result Diagram: 01/27/18 0528 01/27/18 0528 Other Results Laboratory Tests Test 01/26/18 09:15 01/27/18 05:28 01/27/18 07:42 White Blood Count 6.4 TH/MM3 6.3 TH/MM3 Red Blood Count 4.12 MIL/MM3 3.91 MIL/MM3 Hemoglobin 12.7 GM/DL 12.0 GM/DL Hematocrit 38.1 % 36.1 % Mean Corpuscular Volume 92.3 FL 92.3 FL Mean Corpuscular Hemoglobin 30.8 PG 30.6 PG Mean Corpuscular Hemoglobin Concent 33.3 % 33.1 % Red Cell Distribution Width 15.2 % 15.1 % Platelet Count 349 TH/MM3 295 TH/MM3 Mean Platelet Volume 9.0 FL 8.6 FL Neutrophils (%) (Auto) 68.5 % 63.0 % Lymphocytes (%) (Auto) 20.4 % 18.4 % Monocytes (%) (Auto) 5.8 % 9.6 % Eosinophils (%) (Auto) 4.8 % 8.4 % Basophils (%) (Auto) 0.5 % 0.6 % Neutrophils # (Auto) 4.4 TH/MM3 4.0 TH/MM3 Lymphocytes # (Auto) 1.3 TH/MM3 1.2 TH/MM3 Monocytes # (Auto) 0.4 TH/MM3 0.6 TH/MM3 Eosinophils # (Auto) 0.3 TH/MM3 0.5 TH/MM3 Basophils # (Auto) 0.0 TH/MM3 0.0 TH/MM3 CBC Comment DIFF FINAL DIFF FINAL Differential Comment Prothrombin Time 10.9 SEC Prothromb Time International Ratio 1.1 RATIO Blood Urea Nitrogen 6 MG/DL 6 MG/DL Creatinine 0.85 MG/DL 0.78 MG/DL Random Glucose 97 MG/DL 89 MG/DL Calcium Level 8.8 MG/DL 8.1 MG/DL Sodium Level 142 MEQ/L 143 MEQ/L Potassium Level 3.7 MEQ/L 3.7 MEQ/L Chloride Level 110 MEQ/L 109 MEQ/L Carbon Dioxide Level 27.1 MEQ/L 26.5 MEQ/L Anion Gap 5 MEQ/L 8 MEQ/L Estimat Glomerular Filtration Rate 65 ML/MIN 72 ML/MIN Total Bilirubin 0.4 MG/DL Direct Bilirubin 0.1 MG/DL Indirect Bilirubin 0.3 MG/DL Aspartate Amino Transf (AST/SGOT) 16 U/L Alanine Aminotransferase (ALT/SGPT) 13 U/L Alkaline Phosphatase 62 U/L Troponin I LESS THAN 0.02 NG/ML Total Protein 6.9 GM/DL Albumin 3.5 GM/DL Lipase 160 U/L Magnesium Level 2.2 MG/DL Imaging Last Impressions Head CT 01/26/18 1003 Signed Impressions: Service Date/Time: Friday, January 26, 2018 10:10 - CONCLUSION: No acute disease. Melissa Mireles MD Cervical Spine CT 01/26/18 0000 Signed Impressions: Service Date/Time: Friday, January 26, 2018 10:10 - CONCLUSION: Degenerative changes as noted above. This results in areas of neuroforaminal narrowing.. Melissa Mireles MD Abdomen/Pelvis CT 01/26/18 0000 Signed Impressions: Service Date/Time: Friday, January 26, 2018 10:17 - CONCLUSION: Diverticulosis of the sigmoid colon. The no evidence of adjacent inflammatory change.. Melissa Mireles MD Objective Remarks General: NAD, Awake and alert Chest: CTA Cardiac: Regular Abd: +BS, soft ND, mild epigastric tenderness Ext: No edema A/P Problem List: (1) Intractable abdominal pain ICD Codes: R10.9 - Unspecified abdominal pain Status: Acute Plan: Intractable Abdominal pain Hx of chronic cholecystitis s/p Lap miguel in 12/2017 Recurrent C. diff infection - Pt is a 72 y/o WF with anxiety/depression, essential tremor, dementia, cerebellar ataxia, and recent hx of chronic cholecystitis s/p Lap miguel on . - She presented to the ED at [facility] [place] [facility] on 01/26/18 with complaints of worsening epigastric abdominal pain which was reportedly the worst is has been. The pt also reports belching and burping for the last few days and feels like she can't eat. She states that she does not have an appetite and has not been eating much. - Pt was recently found to be positive for C. diff on 01/08/18 and was treated with 10 days of Flagyl 500mg TID. She completed treatment around 1 week ago. She reports that the stool was still loose, having 4-5 BMs up until today. She states that she had a hard, thin BM today in the ED which is the first day she had a solid stool since completing the treatment for C. diff. - Pts labs in the ED noted a normal WBC count. Her electrolytes are stable and LFTs and Lipase are WNL. - CT Abd/pelvis (01/26) --> Diverticulosis of the sigmoid colon. The no evidence of adjacent inflammatory change. - Discussed the case with Dr. Peoples and he reviewed the CT scan of the abd/ pelvis. He did not feel there was any issue with the surgical bed or any particular bowel wall thickening noted. - There did seem to be a fair amount of gas in the colon on the CT - We will give Simethicone 125mg TID, Protonix 40mg IV Q12H - Stool test is positive for C. diff positive tox PCR - Start Vancomycin 125mg QID x 10 days - Cont. PPI, Simethicone, and Lactinex - Encourage oral intake - Supportive care - Further recommendations as the case develops Neck pain and headache, occurring mostly at night - CT Cervical spine (01/26/18) --> Degenerative changes as noted above. This results in areas of neuroforaminal narrowing. - Pt seen by PT this morning and recommended outpt PT - Cont. [place] PRN - K-Thermia Anxiety - Cont. home meds Dementia - Cont. home meds DVT prophylaxis with SCDs (2) Generalized weakness ICD Codes: R53.1 - Weakness Status: Acute (3) Anxiety ICD Codes: F41.9 - Anxiety Status: Acute Assessment and Plan Patient examined. Assessment and plan formulated with Sheba Romo PA-C. I agree with the above. Sheba Romo Jan 27, 2018 10:05 Cisco Perea DO Jan 31, 2018 22:42
[2018-01-27] MEDS ORDERED: SIME125 PO (10:07)
--- NOTE | 2018-01-27 10:12 | HHI.DCPOC ---
Discharge Care Plan Diagnosis: (1) Intractable abdominal pain (2) Cervical radicular pain (3) Generalized weakness (4) Anxiety (5) Head ache Goals to Promote Your Health - Patient is to followup with her PCP, Dr. Timo Batres, in 1 week, call for an appt - She is to continue taking Protonix 40mg once daily in the morning, to be taken about 30 minutes prior to eating breakfast - She is to continue to take Simethicone 125mg three times daily (for gas relief ) for the next 7-10 days - Patient can purchase over the counter Probiotics which can be taken daily or as recommended depending on the product to help with restoring good gut bacteria - We will arrange for HHC/PT to be continued at discharge - The patient will need to be referred to a [facility] paper sales manager by her PCP for help with dietary recommendations - In the mean time try to avoid fried or greasy foods as this may cause more GI upset Directions to Meet Your Goals Take your medications as prescribed Follow your dietary instruction Follow activity as directed Keep your appointments as scheduled Take your immunizations and boosters as scheduled If your symptoms worsen call your PCP, if no PCP go to Urgent Care Center or Emergency Room Smoking is Dangerous to Your Health. Avoid second hand smoke Call the 24-hour hour crisis hotline for domestic abuse at Sheba Romo Jan 27, 2018 10:12 Cisco Perea DO Jan 31, 2018 22:43
--- NOTE | 2018-01-27 10:13 | HHI.FF ---
Face to Face Verification Diagnosis: (1) Intractable abdominal pain (2) Cervical radicular pain (3) Head ache (4) Generalized weakness (5) Anxiety Physical Therapy Order: Evaluate and Treat Home Health Nursing Order: Nursing assessment with vital signs I have seen patient Rona Honeycutt on 01/27/18. My clinical findings support the need for the requested home health care services because: Impaired cognition/judgement I certify that my clinical findings support that this patient is homebound because: Impaired cognitive ability/safety Sheba Romo Jan 27, 2018 10:13
[2018-01-27] MEDS: ACETAMINOPHEN/HYDROcodone 325 MG/5 MG TAB PO PRN ×2 (10:24→21:12)
[2018-01-27] MEDS: VANCOMYCIN 500 MG VIAL (FOR ORAL USE ONLY) PO SCH ×3 (13:15→21:11)
[2018-01-27] MEDS: DONEPEZIL HCL 5 MG TAB PO SCH (21:12)
[2018-01-28 04:08] VITALS: BP 107/59; PULSE 63; RESP 16; TEMP 98; O2SAT 91
[2018-01-28] MEDS: SIMETHICONE 125 MG CHEWABLE TAB PO SCH (06:00)
[2018-01-28] MEDS: VANCOMYCIN 500 MG VIAL (FOR ORAL USE ONLY) PO SCH ×2 (08:40→13:09)
[2018-01-28] MEDS: ASPIRIN 325 MG TAB PO SCH (08:41)
[2018-01-28] MEDS: ALPRAZolam 1 MG TAB PO SCH (08:41)
[2018-01-28] MEDS: LACTOBACILLUS ACIDOPHILUS TAB PO SCH ×2 (08:41→13:09)
--- NOTE | 2018-01-28 08:46 | HHI.PR ---
Subjective Remarks Pt had one small BM yesterday evening, none since then She is still having neck pain and headache but was able to sleep better last night with the [place] Afebrile Objective Vitals Vital Signs Date Time Temp Pulse Resp B/P (MAP) Pulse Ox O2 Delivery O2 Flow Rate FiO2 01/28/18 04:08 98.0 63 16 107/59 (75) 91 01/27/18 23:44 98.3 57 16 105/55 (72) 93 01/27/18 21:57 18 01/27/18 19:48 98.7 65 16 135/100 (112) 94 01/27/18 16:01 97.6 60 16 110/60 (77) 95 01/27/18 11:54 97.9 60 16 107/58 (74) 95 01/28/18 01/28/18 01/29/18 15:00 23:00 07:00 Intake Total 200 ml Balance 200 ml Intake Oral 200 ml Result Diagram: 01/27/18 0528 01/27/1828 Other Results Laboratory Tests Test 01/26/18 09:15 01/27/18 05:28 01/27/18 07:42 White Blood Count 6.4 TH/MM3 6.3 TH/MM3 Red Blood Count 4.12 MIL/MM3 3.91 MIL/MM3 Hemoglobin 12.7 GM/DL 12.0 GM/DL Hematocrit 38.1 % 36.1 % Mean Corpuscular Volume 92.3 FL 92.3 FL Mean Corpuscular Hemoglobin 30.8 PG 30.6 PG Mean Corpuscular Hemoglobin Concent 33.3 % 33.1 % Red Cell Distribution Width 15.2 % 15.1 % Platelet Count 349 TH/MM3 295 TH/MM3 Mean Platelet Volume 9.0 FL 8.6 FL Neutrophils (%) (Auto) 68.5 % 63.0 % Lymphocytes (%) (Auto) 20.4 % 18.4 % Monocytes (%) (Auto) 5.8 % 9.6 % Eosinophils (%) (Auto) 4.8 % 8.4 % Basophils (%) (Auto) 0.5 % 0.6 % Neutrophils # (Auto) 4.4 TH/MM3 4.0 TH/MM3 Lymphocytes # (Auto) 1.3 TH/MM3 1.2 TH/MM3 Monocytes # (Auto) 0.4 TH/MM3 0.6 TH/MM3 Eosinophils # (Auto) 0.3 TH/MM3 0.5 TH/MM3 Basophils # (Auto) 0.0 TH/MM3 0.0 TH/MM3 CBC Comment DIFF FINAL DIFF FINAL Differential Comment Prothrombin Time 10.9 SEC Prothromb Time International Ratio 1.1 RATIO Blood Urea Nitrogen 6 MG/DL 6 MG/DL Creatinine 0.85 MG/DL 0.78 MG/DL Random Glucose 97 MG/DL 89 MG/DL Calcium Level 8.8 MG/DL 8.1 MG/DL Sodium Level 142 MEQ/L 143 MEQ/L Potassium Level 3.7 MEQ/L 3.7 MEQ/L Chloride Level 110 MEQ/L 109 MEQ/L Carbon Dioxide Level 27.1 MEQ/L 26.5 MEQ/L Anion Gap 5 MEQ/L 8 MEQ/L Estimat Glomerular Filtration Rate 65 ML/MIN 72 ML/MIN Total Bilirubin 0.4 MG/DL Direct Bilirubin 0.1 MG/DL Indirect Bilirubin 0.3 MG/DL Aspartate Amino Transf (AST/SGOT) 16 U/L Alanine Aminotransferase (ALT/SGPT) 13 U/L Alkaline Phosphatase 62 U/L Troponin I LESS THAN 0.02 NG/ML Total Protein 6.9 GM/DL Albumin 3.5 GM/DL Lipase 160 U/L Magnesium Level 2.2 MG/DL Stool C. difficile Toxin (PCR) POSITIVE Stl C. difficile Toxin Epiderm 027 PRESUMPTIVE NEGATIVE Imaging Last Impressions Head CT 01/26/18 1003 Signed Impressions: Service Date/Time: Friday, January 26, 2018 10:10 - CONCLUSION: No acute disease. Melissa Mireles MD Cervical Spine CT 01/26/18 0000 Signed Impressions: Service Date/Time: Friday, January 26, 2018 10:10 - CONCLUSION: Degenerative changes as noted above. This results in areas of neuroforaminal narrowing.. Melissa Mireles MD Abdomen/Pelvis CT 01/26/18 0000 Signed Impressions: Service Date/Time: Friday, January 26, 2018 10:17 - CONCLUSION: Diverticulosis of the sigmoid colon. The no evidence of adjacent inflammatory change.. Melissa Mireles MD Objective Remarks General: NAD, Awake and alert Chest: CTA Cardiac: Regular Abd: +BS, soft ND, nontender Ext: No edema A/P Problem List: (1) Intractable abdominal pain ICD Codes: R10.9 - Unspecified abdominal pain Status: Acute Plan: Recurrent C. diff infection Intractable Abdominal pain Hx of chronic cholecystitis s/p Lap miguel in 12/2017 - Pt is a 72 y/o WF with anxiety/depression, essential tremor, dementia, cerebellar ataxia, and recent hx of chronic cholecystitis s/p Lap miguel on . - She presented to the ED at [facility] [place] [place] on 01/26/18 with complaints of worsening epigastric abdominal pain which was reportedly the worst is has been. The pt also reports belching and burping for the last few days and feels like she can't eat. She states that she does not have an appetite and has not been eating much. - Pt was recently found to be positive for C. diff on 01/08/18 and was treated with 10 days of Flagyl 500mg TID. She completed treatment around 1 week ago. She reports that the stool was still loose, having 4-5 BMs up until today. She states that she had a hard, thin BM today in the ED which is the first day she had a solid stool since completing the treatment for C. diff. - Pts labs in the ED noted a normal WBC count. Her electrolytes are stable and LFTs and Lipase are WNL. - CT Abd/pelvis (01/26) --> Diverticulosis of the sigmoid colon. The no evidence of adjacent inflammatory change. - Discussed the case with Dr. Peoples and he reviewed the CT scan of the abd/ pelvis. He did not feel there was any issue with the surgical bed or any particular bowel wall thickening noted. - There did seem to be a fair amount of gas in the colon on the CT - Stool test is positive for C. diff positive tox PCR - Vancomycin 125mg QID x 10 days, started on 01/27/18 - Cont. PPI, Simethicone, and Lactinex - Encourage oral intake - Supportive care - Pt will need followup with her PCP, Dr. Timo Batres, in 1 week - We will arrange for HHC/PT upon discharge. Neck pain and headache, occurring mostly at night - CT Cervical spine (01/26/18) --> Degenerative changes as noted above. This results in areas of neuroforaminal narrowing. - Pt seen by PT this morning and recommended outpt PT - Cont. [place] PRN - K-Thermia Anxiety - Cont. home meds Dementia - Cont. home meds DVT prophylaxis with SCDs (2) Generalized weakness ICD Codes: R53.1 - Weakness Status: Acute (3) Anxiety ICD Codes: F41.9 - Anxiety Status: Acute Assessment and Plan Patient examined. Assessment and plan formulated with Sheba Romo PA-C. I agree with the above. Sheba Romo Jan 28, 2018 08:46 Cisco Perea DO Jan 31, 2018 22:43
[2018-01-28] MEDS ORDERED: VANC500I3 PO ×2 (08:48→13:07)
[2018-01-28] MEDS ORDERED: PANTOPRAZOLE SOD 40 MG DELAYED RELEASE TAB PO SCH (09:00)
[2018-01-28 09:02] VITALS: BP 105/66; PULSE 54; RESP 16; TEMP 98; O2SAT 95
[2018-01-28 12:47] VITALS: BP 157/66; PULSE 58; RESP 16; TEMP 97.6; O2SAT 96
[2018-01-28] MEDS ORDERED: HYDR-3516 PO (12:53)
[2018-01-28] MEDS ORDERED: PROT40TA PO (13:07)
== END 2018-01-28 16:23 | disposition home or self-care (01) ==
LOC: NEPC 08:44 → NEDA 12:33 → NEPHCDU 17:58
PROVIDERS: ADMIT Hospitalist; ATTEND Hospitalist
DX: R53.1 Weakness (principal); F41.9 Anxiety disorder, unspecified; F03.90 Unspecified dementia, unspecified severity, without behavioral disturbance, psychotic disturbance, mood disturbance, and anxiety; K57.30 Diverticulosis of large intestine without perforation or abscess without bleeding; I35.8 Other nonrheumatic aortic valve disorders; I70.90 Unspecified atherosclerosis; E78.00 Pure hypercholesterolemia, unspecified; I27.20 Pulmonary hypertension, unspecified; I34.0 Nonrheumatic mitral (valve) insufficiency; M54.2 Cervicalgia; R51 Headache; R00.1 Bradycardia, unspecified; M16.12 Unilateral primary osteoarthritis, left hip; M47.22 Other spondylosis with radiculopathy, cervical region; G31.9 Degenerative disease of nervous system, unspecified; F32.9 Major depressive disorder, single episode, unspecified; Z79.82 Long term (current) use of aspirin; Z87.891 Personal history of nicotine dependence; Z86.73 Personal history of transient ischemic attack (TIA), and cerebral infarction without residual deficits; Z90.49 Acquired absence of other specified parts of digestive tract; Z96.642 Presence of left artificial hip joint
CPT/HCPCS: 70450; 72125; 74176; 80048; 80076; 83690; 83735; 84484; 85025; 85610; 87493; 93005; 96361; 96374; 96375; 96376; 97161; 99285; C9113; G0378; G8987; G8988; J1885; J2270; J2405; J7040

== ENCOUNTER 2018-03-11 07:43 | Emergency (ER) | payer MEDICARE ==
[~2018-03-11] VITALS: Ht 167.6 cm; Wt 65.5 kg
[~2018-03-11 07:43] MED LIST changes: +PROT40TA PO; +SIME125 PO; +VANC500I3 PO
[2018-03-11 07:46] VITALS: BP 133/88; PULSE 68; RESP 22; TEMP 97.8; O2SAT 99
[2018-03-11] MEDS ORDERED: CITA10SO5 (08:02)
[2018-03-11] MEDS ORDERED: BUPR200T22 (08:02)
[2018-03-11] MEDS ORDERED: VITA1000 PO (08:02)
[2018-03-11 08:13] VITALS: RESP 15; O2SAT 99
--- NOTE | 2018-03-11 08:14 | PD ---
HPI Chief Complaint: Respiratory Symptoms Time Seen by Provider: 08:04 Travel History International Travel<30 days: No Contact w/Intl Traveler<30days: No Traveled to known affect area: No History of Present Illness HPI 73-year-old female states that over the past couple of months since she has had her gallbladder out she has had increasing bouts of anxiety and shortness of breath. She states that sometimes she also gets diarrhea since the surgery. She denies any active pain or fever. She states that she went to [facility] yesterday and they talked with her but did not do blood work and wanted her to follow-up with her psychotherapist today. She states she went to them but while she was there she wanted to come here to get checked out so she did not finish her visit and did not see them at all. She states that she has anxiety medication that her primary doctor prescribes her but this is not helping. She states no other concurrent complaints. She states she feels worse when she moves around. She denies any active shortness of breath. PFSH Past Medical History Hx Anticoagulant Therapy: Yes (asa) Asthma: No Blood Disorders: No Anxiety: Yes Depression: Yes Heart Rhythm Problems: No Cancer: No Cardiovascular Problems: Yes (LEG VEINS STRIPPED YEARS AGO) High Cholesterol: Yes Chemotherapy: No Chest Pain: No Congestive Heart Failure: No COPD: No Cerebrovascular Accident: Yes (TIA 2014) Dementia: Yes Diabetes: No Diminished Hearing: No Endocrine: No Gastrointestinal Disorders: No Genitourinary: No Hepatitis: No Hiatal Hernia: No Immune Disorder: No Musculoskeletal: Yes (OA, LEFT HIP PAIN) Neurologic: Yes (TIA, MEMORY ISSUE AT TIME) Psychiatric: Yes (ANXIETY, DEPRESSION ) Reproductive: No Respiratory: No Radiation Therapy: No Thyroid Disease: No Triglycerides - High: Yes Menopausal: Yes : 4 Para: 4 Past Surgical History Abdominal Surgery: No AICD: No Body Medical Devices: NONE Cardiac Surgery: No Cholecystectomy: Yes Ear Surgery: No Endocrine Surgery: No Eye Surgery: No Genitourinary Surgery: No Gynecologic Surgery: No Joint Replacement: No Oral Surgery: No Pacemaker: No Thoracic Surgery: No Tonsillectomy: Yes Other Surgery: Yes (Leg veins stripped) Social History Alcohol Use: No Tobacco Use: No Substance Use: No Allergies-Medications (Allergen,Severity, Reaction): Coded Allergies: penicillin G (Verified Allergy, Severe, Swelling, hives, 03/11/18) Reported Meds & Prescriptions Reported Meds & Active Scripts Active Protonix (Pantoprazole Sodium) 40 Mg Tab 40 Mg PO BID Vancomycin Inj (Vancomycin HCl) 500 Mg Inj 125 Mg PO QID 9 Days Hydrocodone-Acetamin 5-325 mg (Hydrocodone/Acetaminophen) 5 Mg-325 Mg Tablet 1 Tab PO Q6H PRN Gas Relief Extra Strength (Simethicone) 125 Mg Chw 125 Mg PO Q8HR Aspirin 325 Mg Tab 325 Mg PO DAILY Meclizine (Meclizine HCl) 25 Mg Tab 25 Mg PO TID PRN Reported Vitamin D-1000 (Cholecalciferol) 1,000 Unit Tab 2,000 Units PO DAILY Bupropion HCl ER (Bupropion HCl) 200 Mg Tablet.er Citalopram HBr (Citalopram Hydrobromide) 20 Mg/10 Ml Solution Donepezil 5 Mg Tab 5 Mg PO HS Alprazolam 1 Mg Tab 1 Mg PO BID Review of Systems Except as stated in HPI: all other systems reviewed are Neg Physical Exam Narrative GENERAL: 73-year-old female in no apparent distress SKIN: Focused skin assessment warm/dry. HEAD: Atraumatic. Normocephalic. EYES: Pupils equal and round. No scleral icterus. No injection or drainage. ENT: No nasal bleeding or discharge. Mucous membranes pink and moist. NECK: Trachea midline. No JVD. CARDIOVASCULAR: Regular rate and rhythm. No murmur appreciated. RESPIRATORY: No accessory muscle use. Clear to auscultation. Breath sounds equal bilaterally. GASTROINTESTINAL: Abdomen soft, non-tender, nondistended. MUSCULOSKELETAL: No obvious deformities. No clubbing. No cyanosis. No edema. NEUROLOGICAL: Awake and alert. No obvious cranial nerve deficits. Motor grossly within normal limits. Normal speech. PSYCHIATRIC: Appropriate mood and affect; insight and judgment normal. Data Data Last Documented VS Vital Signs Date Time Temp Pulse Resp B/P (MAP) Pulse Ox O2 Delivery O2 Flow Rate FiO2 03/11/18 10:08 98.0 68 15 130/77 (94) 100 03/11/18 08:13 Room Air Orders Orders Magnesium (Mg) (03/11/18 08:04) Phosphorus (Po4) (03/11/18 08:04) Complete Blood Count With Diff (03/11/18 08:04) Comprehensive Metabolic Panel (03/11/18 08:04) Urinalysis - C+S If Indicated (03/11/18 08:04) Act Partial Throm Time (Ptt) (03/11/18 08:04) Prothrombin Time / Inr (Pt) (03/11/18 08:04) B-Type Natriuretic Peptide (03/11/18 08:04) Chest, Pa & Lat (03/11/18 ) Electrocardiogram (03/11/18 ) Iv Access Insert/Monitor (03/11/18 08:04) Ecg Monitoring (03/11/18 08:04) Oximetry (03/11/18 08:04) Sodium Chlorid 0.9% 500 Ml Inj (Ns 500 M (03/11/18 09:30) Ed Discharge Order (03/11/18 09:43) Labs Laboratory Tests Test 03/11/18 08:14 03/11/18 09:10 White Blood Count 7.6 TH/MM3 Red Blood Count 4.27 MIL/MM3 Hemoglobin 13.0 GM/DL Hematocrit 39.5 % Mean Corpuscular Volume 92.5 FL Mean Corpuscular Hemoglobin 30.5 PG Mean Corpuscular Hemoglobin Concent 33.0 % Red Cell Distribution Width 15.1 % Platelet Count 295 TH/MM3 Mean Platelet Volume 8.5 FL Neutrophils (%) (Auto) 79.7 % Lymphocytes (%) (Auto) 13.6 % Monocytes (%) (Auto) 5.3 % Eosinophils (%) (Auto) 1.0 % Basophils (%) (Auto) 0.4 % Neutrophils # (Auto) 6.1 TH/MM3 Lymphocytes # (Auto) 1.0 TH/MM3 Monocytes # (Auto) 0.4 TH/MM3 Eosinophils # (Auto) 0.1 TH/MM3 Basophils # (Auto) 0.0 TH/MM3 CBC Comment DIFF FINAL Differential Comment Prothrombin Time 11.4 SEC Prothromb Time International Ratio 1.1 RATIO Activated Partial Thromboplast Time 25.7 SEC Blood Urea Nitrogen 8 MG/DL Creatinine 1.00 MG/DL Random Glucose 110 MG/DL Total Protein 7.3 GM/DL Albumin 4.0 GM/DL Calcium Level 8.6 MG/DL Phosphorus Level 2.7 MG/DL Magnesium Level 2.2 MG/DL Alkaline Phosphatase 85 U/L Aspartate Amino Transf (AST/SGOT) 15 U/L Alanine Aminotransferase (ALT/SGPT) 16 U/L Total Bilirubin 0.6 MG/DL Sodium Level 144 MEQ/L Potassium Level 3.7 MEQ/L Chloride Level 108 MEQ/L Carbon Dioxide Level 25.6 MEQ/L Anion Gap 10 MEQ/L Estimat Glomerular Filtration Rate 54 ML/MIN B-Type Natriuretic Peptide 50 PG/ML Urine Color YELLOW Urine Turbidity CLEAR Urine pH 6.5 Urine Specific [place] 1.017 Urine Protein 30 mg/dL Urine Glucose (UA) NEG mg/dL Urine Ketones 40 mg/dL Urine Occult Blood SMALL Urine Nitrite NEG Urine Bilirubin NEG Urine Urobilinogen 0.2 MG/DL Urine Leukocyte Esterase NEG Urine RBC 1 /hpf Urine WBC 2 /hpf Urine Squamous Epithelial Cells <1 /hpf Urine Mucus FEW /lpf Microscopic Urinalysis Comment CULT NOT INDICATED MDM Medical Decision Making Medical Screen Exam Complete: Yes Emergency Medical Condition: Yes Medical Record Reviewed: Yes (Past history confirmed) Interpretation(s) CBC & BMP Diagram 03/11/18 08:14 Total Protein 7.3, Albumin 4.0, Calcium Level 8.6, Phosphorus Level 2.7, Magnesium Level 2.2, Alkaline Phosphatase 85, Aspartate Amino Transf (AST/SGOT) 15, Alanine Aminotransferase (ALT/SGPT) 16, Total Bilirubin 0.6 Differential Diagnosis Electrolyte abnormality, anxiety, anemia Narrative Course We will check blood work, chest x-ray and reevaluate. at bedside Lab work without emergent findings. Chest x-ray normal. Patient is feeling better on reexamination and has had symptoms ongoing for a couple months. These could be related to her anxiety and patient is happy to follow-up outpatient. Patient without suicidal ideations. Patient denies any new complaints , all questions answered. Patient knows that follow up is incumbent on them and to return to the emergency room immediately if new or worsening symptoms develop. Patient given strict return precautions, vitals reviewed and are normal Diagnosis Primary Impression: Shortness of breath Patient Instructions: General Instructions Additional Instructions: return as needed, follow with primary later today Med/Other Pt SpecificInfo: No Change to Meds Disposition: 01 DISCHARGE HOME Condition: Stable Laila Bazan MD March 11, 2018 08:14
[2018-03-11 08:26] LABS: AUTOMATED NEUTROPHIL # 6.1 TH/MM3 (1.8-7.7); BASOPHIL % 0.4 % (0.0-2.0); EOSINOPHIL # 0.1 TH/MM3 (0-0.4); HEMATOCRIT 39.5 % (35.0-46.0); LYMPH % 13.6 % (9.0-44.0); MEAN CELL VOLUME 92.5 FL (80.0-100.0); MEAN CORPUSCULAR HEMOGLOBIN 30.5 PG (27.0-34.0); MEAN PLATELET VOLUME 8.5 FL (7.0-11.0); MONO % 5.3 % (0.0-8.0); MONOCYTE # 0.4 TH/MM3 (0-0.9); NEUT % 79.7 % (16.0-70.0); PLATELET COUNT 295 TH/MM3 (150-450); RED BLOOD COUNT 4.27 MIL/MM3 (4.00-5.30); RED CELL DISTRIBUTION WIDTH 15.1 % (11.6-17.2); WHITE BLOOD COUNT 7.6 TH/MM3 (4.0-11.0)
[2018-03-11 08:38] LABS: INTERNATIONAL NORMALIZED RATIO 1.1 RATIO; PROTHROMBIN TIME - PATIENT 11.4 SEC (9.8-11.6)
[2018-03-11 08:45] LABS: ALT (GPT) 16 U/L (10-53); AST (GOT) 15 U/L (15-37); BICARBONATE 25.6 MEQ/L (21.0-32.0); BLOOD UREA NITROGEN 8 MG/DL (7-18); CALCIUM 8.6 MG/DL (8.5-10.1); CHLORIDE 108 MEQ/L (98-107); GLOMERULAR FILTRATION RATE 54 ML/MIN (>89); GLUCOSE,RANDOM 110 MG/DL (74-106); MAGNESIUM 2.2 MG/DL (1.5-2.5); PHOSPHORUS 2.7 MG/DL (2.5-4.9); SODIUM (NA) 144 MEQ/L (136-145)
[2018-03-11 08:48] LABS: ALKALINE PHOSPHATASE 85 U/L (45-117); TOTAL BILIRUBIN ADULT 0.6 MG/DL (0.2-1.0); TOTAL PROTEIN 7.3 GM/DL (6.4-8.2)
--- NOTE | 2018-03-11 09:01 | RADRPT ---
EXAM DATE: 03/11/2018 8:40 AM EDT AGE/SEX: 73 years / Female INDICATIONS: Short of breath CLINICAL DATA: This is the patient's initial encounter. Patient reports that signs and symptoms have been present for 2 months and indicates a pain score of 0/10. MEDICAL/SURGICAL HISTORY: . anxiety since having cholecystectomy in December, short of breath Cho lecystectomy. COMPARISON: [facility], CHEST PA & LAT, 12/01/2016. . FINDINGS: PA and lateral views of the chest demonstrate the lungs to be symmetrically aerated withou t evidence of mass, infiltrate or effusion. The cardiomediastinal contours are unremarkable. Osseous structures are intact. CONCLUSION: No acute pulmonary infiltrates. Electronically signed by: Jeevan Arredondo MD 03/11/2018 9:00 AM EDT
[2018-03-11 09:25] LABS: BILIRUBIN, URINE NEG (NEG); BLOOD, URINE SMALL (NEG); GLUCOSE,URINE NEG (NEG); KETONE, URINE 40 mg/dL (NEG); NITRITE,URINE NEG (NEG); PH, URINE 6.5 (5.0-8.5); URINE COLOR YELLOW (YELLW/STRAW); URINE LEUKOCYTE ESTERASE NEG (NEG)
[2018-03-11 09:28] LABS: MUCUS URINE FEW /lpf (OCC); SQUAMOUS EPITHELIAL CELL URINE <1 /hpf (0-5)
[2018-03-11] MEDS ORDERED: SODIUM CHLORID 0.9% 500 ML INJ 500 ML IV ONE (09:30)
[2018-03-11 09:52] VITALS: BP 131/62; TEMP 98
[2018-03-11 10:08] VITALS: BP 130/77; TEMP 98
--- NOTE | 2018-03-11 16:50 | EKG ---
Date Performed: 03/11/2018 Time Performed: 08:35:21 PTAGE: 73 years EKG: Sinus rhythm WITH OCCASIONAL VENTRICULAR PREMATURE COMPLEXES MARKED LEFT AXIS DEVIATION INCOMPLETE RIGHT BUNDLE B RANCH BLOCK MINIMAL ST DEPRESSION ABNORMAL ECG PREVIOUS TRACING : 01/26/2018 10.47 Since the previous tracing, no significant change noted DOCTOR: Glenda Rodriguez Interpretating Date/Time 03/11/2018 16:49:56
== END 2018-03-11 10:10 | disposition home or self-care (01) ==
LOC: NEPC 07:43
DX: R06.02 Shortness of breath (principal); F41.9 Anxiety disorder, unspecified; Z79.899 Other long term (current) drug therapy
CPT/HCPCS: 71046; 80053; 81001; 83735; 83880; 84100; 85025; 85610; 85730; 93005; 96360; 99285; J7040